=== PATIENT | female | born 1955 | race Caucasian/White ===

== ENCOUNTER → 2016-08-16 | Outpatient (CLI) | payer BC ==
[~2016-08-16] MED LIST: FLAX OIL PO; MULT-506 PO; OMEG10007 PO; VITA400C15 PO
--- NOTE | 2016-08-16 16:11 | MAMMOGRAPHY REPORT ---
UNILATERAL LEFT DIGITAL DIAGNOSTIC MAMMOGRAM TOMOSYNTHESIS AND TARGETED LEFT ULTRASOUND: 08/16/2016 CLINICAL HISTORY: 6 Month Follow-up Left. TECHNIQUE: Breast tomosynthesis in addition to standard 2D mammography was performed. Left CC and MLO 2-D and tomosynthesis images were obtained. COMPARISON: Comparison is made to exams dated: 02/13/2016 ultrasound, 02/13/2016 mammogram, 02/08/2016 mammogram, 02/01/2014 mammogram, 02/02/2015 mammogram, and 01/29/2013 mammogram - [facility]. BREAST COMPOSITION: The tissue of the left breast is heterogeneously dense, which may obscure small masses. FINDINGS: Again noted in the left 3:00 anterior breast is a partially circumscribed and partially o bscured round mass measuring at least 5 mm. The mass does not appear significantly changed compared to the February 2016 exam. The remainder of the left breast is stable compared to prior exams, without suspicious masses, calcifications, or areas of architectural distortion noted. Targeted ultrasound was performed of the area of the previously seen left breast mass. In the left breast at 3:00 subareolar region, there is a round anechoic circumscribed mass which measures 4 x 4 x 4 mm, stable in size compared to the February 2016 exam. The previously seen echogenic material withi n the mass is no longer evident, and likely represented proteinaceous debris. This corresponds with the mammographic mass and is consistent with a benign simple cyst. IMPRESSION: ACR BI-RADS CATEGORY 2: BENIGN, TARGETED ULTRASOUND ACR BI-RADS CATEGORY 2: BENIGN Stable benign 4 mm simple cyst in the left breast at 3:00. There is no mammographic or targeted son ographic evidence of malignancy. Return to annual mammogram screening schedule is recommended, due J leandro 2017. The patient has been verbally notified of the results. Approximately 10% of breast cancers are not detected with mammography. A negative mammographic repor t should not delay biopsy if a clinically suggestive mass is present. Lary De La Vega M.D. ah/:08/16/2016 14:09:47 Body Fitter: Antoinette MCCLURE(Kev)(Rachel), [facility] letter sent: Normal 1/2 BI-RADS Code: ACR BI-RADS Category 2: Benign Ultrasound BI-RADS: ACR BI-RADS Category 2: Benign
== END | disposition home or self-care (01) ==
LOC: C.MAMM 13:47
PROVIDERS: ATTEND Family Medicine
DX: N60.02 Solitary cyst of left breast (principal)

== ENCOUNTER → 2016-08-25 | Outpatient (CLI) | payer BC, OTHER ==
[2016-08-25 13:01] LABS: BASO ABS # 0.05 K/uL (0-0.2); COMPLETE YES; EOS % 1.9 %; HEMATOCRIT 43.7 % (37-47); LYMPH % 41.5 %; LYMPH ABS # 2.16 K/uL (1.2-3.4); MEAN CELL VOLUME 83.2 fL (80-100); MEAN CORPUSCULAR HEMOGLOBIN 28.8 pg (25-34); MEAN CORPUSCULAR HGB CONC 34.6 g/dl (32-36); MEAN PLATELET VOLUME 11.2 fL (7.4-10.4); MONO % 7.5 %; NEUT % 48.1 %; PLATELET COUNT 265 K/uL (130-400); RED BLOOD COUNT 5.25 M/uL (4.2-5.4)
[2016-08-25 13:23] LABS: ALT/SGPT 38 U/L (12-78); AST/SGOT 17 U/L (15-37); BLOOD UREA NITROGEN 20 mg/dl (7-18); BUN/CREATININE RATIO 19.8 (10-20); CALCIUM 9.1 mg/dl (8.5-10.1); CARBON DIOXIDE 32 mmol/L (21-32); CHLORIDE 103 mmol/L (98-107); CHOLESTEROL 197 mg/dl (0-200); GLUCOSE 91 mg/dl (70-99); POTASSIUM 3.8 mmol/L (3.5-5.1); SODIUM 141 mmol/L (136-145)
[2016-08-25 13:26] LABS: ALB/GLOB RATIO 1.1 (0.9-2); ALKALINE PHOSPHATASE 101 U/L (45-117); HDL CHOLESTEROL 100 mg/dl; LDL CHOLESTEROL CALCULATED 81 mg/dl; TRIGLYCERIDES 81 mg/dl (0-150); VERY LOW DENSITY LIPOPROT CALC 16 mg/dl
== END | disposition home or self-care (01) ==
LOC: C.LABPVFM 08:04
PROVIDERS: ATTEND Family Medicine
DX: E78.00 Pure hypercholesterolemia, unspecified (principal); I10 Essential (primary) hypertension; E80.6 Other disorders of bilirubin metabolism

== ENCOUNTER → 2017-02-11 | Outpatient (CLI) | payer BC ==
--- NOTE | 2017-02-12 13:54 | MAMMOGRAPHY REPORT ---
BILATERAL DIGITAL SCREENING MAMMOGRAM TOMOSYNTHESIS WITH CAD: 02/11/2017 CLINICAL HISTORY: Routine screening. Patient has no complaints. TECHNIQUE: Breast tomosynthesis in addition to standard 2D mammography was performed. Current study was also evaluated with a Computer Aided Detection (CAD) system. COMPARISON: Comparison is made to exams dated: 08/16/2016 mammogram, 02/13/2016 mammogram, 02/08/2016 ma mmogram, 02/02/2015 mammogram, 02/01/2014 mammogram, and 01/29/2013 mammogram - [facility] ter. BREAST COMPOSITION: The tissue of both breasts is heterogeneously dense, which may obscure small mas ses. FINDINGS: There are mild vascular calcifications in the breasts. No new suspicious mass, architectur al distortion or cluster of microcalcifications is seen. IMPRESSION: ACR BI-RADS CATEGORY 1: NEGATIVE There is no mammographic evidence of malignancy. A 1 year screening mammogram is recommended. The pa tient will receive written notification of the results. Approximately 10% of breast cancers are not detected with mammography. A negative mammographic report should not delay biopsy if a clinically suggestive mass is present. Sophie Douglas M.D. ay/:02/11/2017 16:09:57 Public Accountant: Rosi MCCLURE(R)(M), [facility] letter sent: Normal 1/2 BI-RADS Code: ACR BI-RADS Category 1: Negative
== END | disposition home or self-care (01) ==
LOC: C.MAMM 12:08
PROVIDERS: ATTEND Family Medicine
DX: Z12.31 Encounter for screening mammogram for malignant neoplasm of breast (principal)

== ENCOUNTER → 2017-03-04 | Outpatient (CLI) | payer BC ==
[2017-03-04 13:06] LABS: ALT/SGPT 31 U/L (12-78); AST/SGOT 25 U/L (15-37); BLOOD UREA NITROGEN 18 mg/dl (7-18); BUN/CREATININE RATIO 18.2 (10-20); CALCIUM 8.9 mg/dl (8.5-10.1); CARBON DIOXIDE 29 mmol/L (21-32); CHLORIDE 104 mmol/L (98-107); GLUCOSE 83 mg/dl (70-99); POTASSIUM 3.4 mmol/L (3.5-5.1); SODIUM 140 mmol/L (136-145)
[2017-03-04 13:08] LABS: ALB/GLOB RATIO 1.1 (0.9-2); ALKALINE PHOSPHATASE 99 U/L (45-117); CHOLESTEROL 172 mg/dl (0-200); CHOLESTEROL/HDL RATIO 2.1; HDL CHOLESTEROL 81 mg/dl; LDL CHOLESTEROL CALCULATED 79 mg/dl; TRIGLYCERIDES 62 mg/dl (0-150); VERY LOW DENSITY LIPOPROT CALC 12 mg/dl
== END | disposition home or self-care (01) ==
LOC: C.LABPVFM 07:06
PROVIDERS: ATTEND Family Medicine
DX: J45.909 Unspecified asthma, uncomplicated (principal); E78.00 Pure hypercholesterolemia, unspecified; I10 Essential (primary) hypertension; R09.82 Postnasal drip

== ENCOUNTER → 2017-08-30 | Outpatient (CLI) | payer BC ==
[2017-08-30 13:38] LABS: ALBUMIN 3.9 gm/dl (3.4-5.0); ALT/SGPT 33 U/L (12-78); BLOOD UREA NITROGEN 16 mg/dl (7-18); CALCIUM 9.6 mg/dl (8.5-10.1); CARBON DIOXIDE 31 mmol/L (21-32); CHOLESTEROL 207 mg/dl (0-200); CREATININE 1.11 mg/dl (0.60-1.20); GLUCOSE 82 mg/dl (70-99); POTASSIUM 3.8 mmol/L (3.5-5.1); SODIUM 137 mmol/L (136-145)
[2017-08-30 13:48] LABS: ALKALINE PHOSPHATASE 97 U/L (45-117); AST/SGOT 21 U/L (15-37); LDL CHOLESTEROL CALCULATED 97 mg/dl; TOTAL PROTEIN 7.7 gm/dl (6.4-8.2)
== END | disposition home or self-care (01) ==
LOC: C.LABPVFM 07:36
PROVIDERS: ATTEND Family Medicine
DX: Z00.00 Encounter for general adult medical examination without abnormal findings (principal); Z13.29 Encounter for screening for other suspected endocrine disorder; E78.00 Pure hypercholesterolemia, unspecified; E80.6 Other disorders of bilirubin metabolism; I10 Essential (primary) hypertension; J45.909 Unspecified asthma, uncomplicated

== ENCOUNTER → 2018-03-07 | Outpatient (CLI) | payer BC ==
[2018-03-07 13:21] LABS: ALBUMIN 3.9 gm/dl (3.4-5.0); ALKALINE PHOSPHATASE 99 U/L (45-117); ALT/SGPT 38 U/L (12-78); AST/SGOT 25 U/L (15-37); BLOOD UREA NITROGEN 22 mg/dl (7-18); CALCIUM 9.4 mg/dl (8.5-10.1); CARBON DIOXIDE 35 mmol/L (21-32); CHOLESTEROL 203 mg/dl (0-200); CREATININE 1.05 mg/dl (0.60-1.20); GLUCOSE 90 mg/dl (70-99); LDL CHOLESTEROL CALCULATED 97 mg/dl; POTASSIUM 3.5 mmol/L (3.5-5.1); SODIUM 138 mmol/L (136-145); TOTAL PROTEIN 7.6 gm/dl (6.4-8.2)
== END | disposition home or self-care (01) ==
LOC: C.LABPVFM 07:53
PROVIDERS: ATTEND Family Medicine
DX: E78.00 Pure hypercholesterolemia, unspecified (principal); I10 Essential (primary) hypertension; E80.6 Other disorders of bilirubin metabolism

== ENCOUNTER 2024-03-23 10:32 | Inpatient (IN) ==
--- NOTE | 2024-03-23 11:04 | Emergency Department Note ---
History of Present Illness General Chief complaint: Back Injury/Pain Stated complaint: BACK SPASMS, NOT SLEEPING Time Seen by Provider: 03/23/24 10:45 History of Present Illness Maximum Pain Intensity: 10 This is a 68-year-old female that presents to the emergency department via private vehicle with complaints of "back pain". The patient notes that this past Saturday/Saturday 1 week ago she was lifting a railroad tie. She noted that when she was doing that she felt some pain in her mid upper back area. It has progressed since that time. She did follow-up with her PCP this past and was prescribed muscle relaxers and prednisone. She noted about 1 day relief however the pain has now continued. The only alleviating factor is a hot shower and she took 4 of them last night. She is not sleeping well secondary to the pain. Pain currently 10/10. Pain worsens with movement, bending and deep breath. No anterior chest pain. No abdominal pain. Patient denies any pertinent past back surgeries. No medicinal allergies. Pain does not radiate down the arms or legs. No lower extremity weakness and no bowel or bladder incontinence. Home Medications Medication Instructions Recorded Confirmed Type multivitamin 1 tab PO QAM 10/08/18 03/23/24 History atorvastatin 40 mg tablet 40 mg PO DAILY #90 tabs 05/07/23 03/23/24 Rx losartan 50 mg tablet 50 mg PO DAILY #90 tabs 05/07/23 03/23/24 Rx albuterol sulfate 90 mcg/actuation See Rx Instructions .Route 11/22/23 03/23/24 Rx aerosol inhaler (Ventolin HFA) .COMPLEX #18 grams benzonatate 200 mg capsule 200 mg PO TID PRN cough #20 caps 03/09/24 03/23/24 Rx prednisone 20 mg tablet 40 mg (2 x 20 mg) PO DAILY #14 tabs 03/19/24 03/23/24 Rx cyclobenzaprine 5 mg tablet 5 - 10 mg PO TID PRN muscle spasm 03/23/24 03/23/24 History Allergies Allergy/AdvReac Type Severity Reaction Status Date / Time No Known Drug Allergies Allergy Verified 03/19/24 14:03 [place] extract Allergy Verified 03/19/24 14:03 Past Med/Surg History Problem List (Updated 03/23/24 @ 21:33 by Norm Castle PA-C) Elevated troponin (Acute) Back pain (Acute) Sprain of thoracic spine COVID-19 Viral URI with cough Pain in female genitalia on intercourse Localized osteoarthritis of left knee Tick bite Arthralgia Frequent headaches Fatigue Family history of hypertrophic cardiomyopathy Hypokalemia (Acute) Hypertension (Chronic) Hypercholesterolemia (Chronic) Exercise-induced asthma (Chronic) GERD (gastroesophageal reflux disease) (Chronic) Medical History (Updated 03/23/24 @ 21:33 by Norm Castle PA-C) Cervical radiculopathy Fluid retention Surgical History History of total abdominal hysterectomy and bilateral salpingo-oophorectomy History of bilateral tubal ligation History of dilatation and curettage History of craniotomy depressed skull fx--repair at 2yrs old History of elbow surgery right History of hand surgery left thumb removed part of bone History of colonoscopy History of wisdom tooth extraction Family History Mother Family history of diabetes mellitus Grandmother (Maternal) Family history of diabetes mellitus Myocardial infarction Other No family history of adverse response to anesthesia Denies family history of Ovarian cancer Prostate cancer Breast cancer Colorectal cancer Social History Smoking Status: Never smoker Second Hand Exposure: No; Do You Dip or Chew Tobacco: No; Tobacco Cessation Education Requested by Patient: No Hx Alcohol Use: No Hx Substance Use: No Preferred Language: Uzbek Communication Ability: Effective Produce Shipper Required: No Beliefs That Will Affect Care: None marital status: / Current Living Situation: Alone current occupational status: retired How many Children do You have: 3 Other Information That Helps Us Care for You: Yes Feels Safe at Home: Yes Safety Concerns: Feels Safe At This Time Childhood Exposure to Second-Hand Smoke: No Diet: regular caffeine: Yes (tea) Dental Care, Regularly: Yes Physical Activity Frequency: Daily Seatbelt Use: always Sunscreen Use: Yes Assistive Devices: Contacts and Glasses Review of Systems A total of 10 systems reviewed and were otherwise negative Physical Exam Vital Signs Vital Signs - 24 hr 03/23/24 10:37 03/23/24 11:25 08/19/24 15:55 Temperature 36.3 C L Temperature Source Temporal Artery Scan Pulse Rate 96 H 86 Pulse Rate [Left Finger] 90 Pulse Rhythm Regular Pulse Strength Normal Respiratory Rate 18 18 20 Respiratory Effort / Characteristics Non-Labored Spontaneous Respiratory Depth Normal Respiratory Pattern Regular Blood Pressure 161/89 H Blood Pressure [Right Arm] 145/86 H Blood Pressure Mean 113 Blood Pressure Mean [Right Arm] 105 Blood Pressure Position Sitting Blood Pressure Position [Right Arm] Sitting Pulse Oximetry 97 94 98 Oxygen Delivery Method Room Air Room Air Sepsis Recent Fever Within 48 Hours No Sepsis New/Unexplained Change in Mental Status No Sepsis Action Taken by Nursing No Action Required VITAL SIGNS - Vital signs and nursing notes were reviewed. GENERAL - 68-year-old female appearing her stated age who is in no acute distress. Communicates well with provider and answers questions appropriately. SKIN - Without rashes. HEAD - NC/AT. EYES - Sclera anicteric. Skin overlying the back is unremarkable. EARS - No deformities of external structures noted on gross examination bilaterally. MOUTH/OROPHARYNX - Without perioral cyanosis. NECK - Neck with FROM. No nuchal rigidity. LUNGS - Chest wall symmetric without accessory muscle use, intercostals retractions, or central cyanosis. Normal vesicular breath sounds CTA B/L. No wheezes, rales, or rhonchi appreciated. CARDIAC - RRR with S1/S2. No murmur, rubs, or gallops appreciated. MUSCULOSKELETALthere is tenderness overlying the superior to mid T-spine area. No C-spine or L-spine tenderness. ABDOMEN - Abdominal contour normal without pulsations or visible masses. BS normoactive all four quadrants. No tenderness, palpable masses, hepatosplenomegaly, or ascites noted. EXTREMITIES - No clubbing or peripheral cyanosis. +5/5 strength noted in UE/LE bilaterally. NEUROLOGIC - Cranial nerves II through XII grossly intact. PSYCH -alert, oriented and pleasant on exam Course Administered Medications Enoxaparin Sodium (Enoxaparin Inj 40 Mg/0.4 Ml Syr) 40 mg SQ Q24H [facility] Stop: 04/22/24 18:29 Last Admin: 03/23/24 19:44 Dose: 40 mg Documented By: CHRISTIANO Miscellaneous (Remove Lidoderm Patch) 1 each N/A DAILY@2100 [facility] Stop: 04/22/24 20:59 Last Admin: 03/23/24 21:06 Dose: 1 each Documented By: CHRISTIANO Discontinued Medications Diazepam (Diazepam 2 Mg Tablet) 2 mg PO NOW ONE Stop: 03/23/24 17:40 Last Admin: 03/23/24 18:36 Dose: 2 mg Documented By: SARA Ioversol (Optiray 320 100ml) 93 ml IV ONCE ONE Stop: 03/23/24 12:18 Last Admin: 03/23/24 12:18 Dose: 93 ml Documented By: SANTA Ketorolac Tromethamine (Ketorolac Tromethamine 15 Mg/Ml Vial) 10 mg IV NOW ONE Stop: 03/23/24 17:18 Last Admin: 03/23/24 17:37 Dose: 10 mg Documented By: ULISES Lidocaine (Lidocaine 5% 1 Patch) 1 patch TD NOW STA Stop: 03/23/24 17:02 Last Admin: 03/23/24 17:20 Dose: 1 patch Documented By: ULISES Morphine Sulfate (Morphine Sulfate 2 Mg/Ml Carp) 2 mg IV NOW STA Stop: 03/23/24 11:01 Last Admin: 03/23/24 11:20 Dose: 2 mg Documented By: ZACH Morphine Sulfate (Morphine Sulfate 2 Mg/Ml Carp) 2 mg IV NOW STA Stop: 03/23/24 17:02 Last Admin: 03/23/24 17:36 Dose: 2 mg Documented By: ULISES Ondansetron HCl (Ondansetron Inj 2 Mg/Ml 2 Ml Vial) 4 mg IV NOW STA Stop: 03/23/24 11:01 Last Admin: 03/23/24 11:20 Dose: 4 mg Documented By: ZACH Medical Decision Making Laboratory Data 03/23/24 11:20 03/23/24 11:20 Lab Results 03/23/24 03/23/24 Range/Units 11:20 15:49 WBC 10.92 H (4.8-10.8) K/ul RBC 4.51 (4.20-5.40) M/uL Hgb 12.0 (12.0-16.0) g/dl Hct 36.0 L (37.0-47.0) % MCV 79.8 L (80.0-100.0) fL MCH 26.6 (25.0-34.0) pg MCHC 33.3 (32.0-36.0) g/dL RDW Std Deviation 42.3 (36.4-46.3) fL RDW Coeff of Chadwick 14.4 (11.5-14.5) % Plt Count 406 H (130-400) K/uL MPV 9.8 (9.4-12.4) fL Immature Gran % (Auto) 0.5 % Neut % (Auto) 93.6 % Lymph % (Auto) 4.2 % Mccracken % (Auto) 1.5 % Eos % (Auto) 0.0 % Baso % (Auto) 0.2 % Neut # (Auto) 10.23 H (1.40-6.50) K/uL Lymph # (Auto) 0.46 L (1.20-3.40) K/uL Mccracken # (Auto) 0.16 (0.11-0.59) K/uL Eos # (Auto) 0.00 (0.00-0.50) K/uL Baso # (Auto) 0.02 (0.00-0.20) K/uL Immature Gran # (Auto) 0.05 (0.01-0.20) K/uL Sodium 137 (136-145) mmol/L Potassium 4.2 (3.5-5.1) mmol/L Chloride 103 (98-107) mmol/L Carbon Dioxide 27 (21-32) mmol/L Anion Gap 7 (3-11) BUN 22 (6-23) mg/dl Creatinine 0.77 (0.6-1.2) mg/dl Est Cr Clr Drug Dosing 61.7 ml/min Est GFR ( Amer) 91.3 ml/min Est GFR (Non-Af Amer) 78.8 ml/min BUN/Creatinine Ratio 28.6 H (10-20) Glucose 145 H (70-99(Fasting)) mg/dl Calcium 9.8 (8.6-10.3) mg/dl Total Bilirubin 0.8 (0.2-1.0) mg/dl AST 14 (13-39) U/L ALT 29 (7-52) U/L Alkaline Phosphatase 141 H (34-104) U/L Troponin I High Sens 30.9 H 19.0 H D (0-14) pg/ml Total Protein 6.7 (6.0-8.3) gm/dl Albumin 3.8 (3.4-5.0) gm/dl Globulin 2.9 (2.5-4.0) gm/dl Albumin/Globulin Ratio 1.3 (0.9-2) Imaging Data Radiologist's Impression: Chest CT 03/23/24 10:59 CT chest diagnostic w con CLINICAL HISTORY: Mid/upper central back pain s/p heavy lifting TECHNIQUE: Multidetector row helical CT of the chest was performed with intravenous contrast. Coronal and sagittal reformations were obtained. Automated dose lowering techniques and/or adjustment according to patient size were utilized for this exam. CT DOSE: 392.06 mGy.cm Comparison: None available at the time of this dictation. FINDINGS: Lungs and pleura: Normal. Heart and pericardium: Heart size is normal. No pericardial effusion. Vessels: Mild atherosclerotic changes in the aorta and coronary arteries. Mediastinum and rhonda: Subcentimeter lymph nodes are seen. Chest wall and lower neck: Small thyroid nodules are noted which do not require follow-up by ACR criteria. Abdomen: Unremarkable. Bones: Degenerative changes in the thoracic spine. IMPRESSION: No acute abnormalities in particular no evidence of acute fracture. ACT 112: Negative or not required by law. Electronically signed by: Zachariah English M.D. 03/23/2024 1:[address] 03/23/24 10:59 CT thoracic spine w con CT DOSE: CLINICAL HISTORY: Mid/upper central back pain s/p heavy lifting TECHNIQUE: Multiaxial CT images of the thoracic spine were performed following the intravenous administration of contrast and reformatted in the sagittal and coronal planes A dose lowering technique was utilized adhering to the principles of ALARA. COMPARISON STUDY: None. FINDINGS: No fracture or subluxation within the thoracic spine. Moderate disc space narrowing at T1-T2. Mild disc space narrowing within the remaining upper to mid thoracic spine. Moderate to severe disc space narrowing at L1-L2. No significant central canal narrowing by CT technique. Paravertebral soft tissues are unremarkable. IMPRESSION: No fracture or subluxation within the thoracic spine. ACT 112: Negative or not required by law. Electronically signed by: Anand Figueroa M.D. 03/23/2024 12:40 PM [facility] Narrative Patient was seen and evaluated as above in room D04b. Review was performed of triage nursing notes and vital signs. I did review pertinent previous outpatient visit from 03/19/2024 and patient history. After obtaining a thorough history and physical examination the above work up was performed. Patient presents to us today for evaluation of mid back pain. It is reproducible on examination. It is worse with movement but also present at rest. No chest pain or shortness of breath. No neurologic deficits. Options of care were discussed with the patient. IV access was established. Labs were drawn. Minor leukocytosis 10.92. No anemia. No emergent metabolic disturbance. Hyperglycemia 145. CT scan was obtained of the chest as well as thoracic spine. Results as above. No fracture. No acute abnormalities in the chest. Patient was medicated here with IV morphine for pain, Zofran for any nausea. Although this initially helped her pain the pain did return. To be thorough a troponin and EKG were added. Troponin returned elevated at 30.9. I discussed this with the hospitalist service and also the well logger, Dr. Green at 3:47 PM. We reviewed the patient's EKG which revealed normal sinus rhythm at a rate of 72 bpm. QTc 396. QRS 68. No ST elevation. We agreed to proceed with troponin repeat and if stable/decreasing could be discharged home for outpatient follow-up and if increasing depending on value then inpatient management would be warranted. Repeat troponin returned decreasing now at 19. I reviewed this with the patient and initially planned on discharge however the patient noted pain was returning and she was concerned about going home noting severity of pain in her back. I discussed potential oral outpatient analgesic options with the patient versus inpatient management. At this time through shared decision making with the patient we will proceed with inpatient management to better control her back pain and further evaluate/manage. Case discussed with the hospitalist service. Please refer to further documentation regarding her stay. GCS: 15 In the evaluation and treatment of this patient the following differential diagnoses were entertained: Discitis, osteomyelitis, strain, sprain, compression fracture, disc herniation, epidural hematoma, dissection, NE, PE, among others Impression & Plan Back pain, Elevated troponin Discharge Plan Visit Data Chief Complaint: Back Injury/Pain Stated Complaint: BACK SPASMS, NOT SLEEPING ED Provider: Romero Luke ED Midlevel Provider: Norm Castle Discharge Problem: Back pain, Elevated troponin Patient Disposition: Admitted As Inpatient Condition: Good Discharge Instructions Interventions: ED Discharge Assessment Last Done: 03/23/24 18:31
[2024-03-23] MEDS: MoRPHine SULFATE 2 MG/ML CARP IV STA ×2 (11:20→17:36)
[2024-03-23] MEDS: ONDANSETRON INJ 2 MG/ML 2 ML VIAL IV STA (11:20)
[2024-03-23 11:52] LABS: Mean Corpuscular Hemoglobin 26.6 pg (25.0-34.0); Mean Corpuscular Hgb Conc 33.3 g/dL (32.0-36.0); Mean Corpuscular Volume 79.8 fL (80.0-100.0); Mean Platelet Volume 9.8 fL (9.4-12.4); Platelet Count 406 K/uL (130-400); RDW Coefficient of Variation 14.4 % (11.5-14.5); RDW Standard Deviation 42.3 fL (36.4-46.3); Red Blood Count 4.51 M/uL (4.20-5.40); White Blood Count 10.92 K/ul (4.8-10.8)
[2024-03-23 12:08] LABS: Albumin Globulin Ratio 1.3 (0.9-2); Albumin Level 3.8 gm/dl (3.4-5.0); BUN Creatinine Ratio 28.6 (10-20); Bilirubin,Total 0.8 mg/dl (0.2-1.0); Calcium 9.8 mg/dl (8.6-10.3); Creatinine Clr Calc Pharmacy 61.7 ml/min; Est GFR (African American) 91.3 ml/min; Est GFR (Non-African American) 78.8 ml/min; Globulin 2.9 gm/dl (2.5-4.0); Potassium 4.2 mmol/L (3.5-5.1); Total Protein 6.7 gm/dl (6.0-8.3)
[2024-03-23 12:15] LABS: Basophils # (auto) 0.02 K/uL (0.00-0.20); Basophils % (auto) 0.2 %; Immature Granulocytes # (auto) 0.05 K/uL (0.01-0.20); Immature Granulocytes % (auto) 0.5 %; Lymphocytes # (auto) 0.46 K/uL (1.20-3.40); Lymphocytes % (auto) 4.2 %; Monocytes # (auto) 0.16 K/uL (0.11-0.59); Monocytes % (auto) 1.5 %; Neutrophils # (auto) 10.23 K/uL (1.40-6.50); Neutrophils % (auto) 93.6 %
[2024-03-23] MEDS: OPTIRAY 320 100ml IV ONE (12:18)
--- NOTE | 2024-03-23 12:43 | CT Scan Report ---
CT thoracic spine w con CT DOSE: CLINICAL HISTORY: Mid/upper central back pain s/p heavy lifting TECHNIQUE: Multiaxial CT images of the thoracic spine were performed following the intravenous admini stration of contrast and reformatted in the sagittal and coronal planes A dose lowering technique wa s utilized adhering to the principles of ALARA. COMPARISON STUDY: None. FINDINGS: No fracture or subluxation within the thoracic spine. Moderate disc space narrowing at T1-T 2. Mild disc space narrowing within the remaining upper to mid thoracic spine. Moderate to severe dis c space narrowing at L1-L2. No significant central canal narrowing by CT technique. Paravertebral sof t tissues are unremarkable. IMPRESSION: No fracture or subluxation within the thoracic spine. ACT 112: Negative or not required by law. Electronically signed by: Anand Figueroa M.D. 03/23/2024 12:40 PM
--- NOTE | 2024-03-23 13:05 | CT Scan Report ---
CT chest diagnostic w con CLINICAL HISTORY: Mid/upper central back pain s/p heavy lifting TECHNIQUE: Multidetector row helical CT of the chest was performed with intravenous contrast. Coronal and sagittal reformations were obtained. Automated dose lowering techniques and/or adjustment accord ing to patient size were utilized for this exam. CT DOSE: 392.06 mGy.cm Comparison: None available at the time of this dictation. FINDINGS: Lungs and pleura: Normal. Heart and pericardium: Heart size is normal. No pericardial effusion. Vessels: Mild atherosclerotic changes in the aorta and coronary arteries. Mediastinum and rhonda: Subcentimeter lymph nodes are seen. Chest wall and lower neck: Small thyroid nodules are noted which do not require follow-up by ACR cedric broussard. Abdomen: Unremarkable. Bones: Degenerative changes in the thoracic spine. IMPRESSION: No acute abnormalities in particular no evidence of acute fracture. ACT 112: Negative or not required by law. Electronically signed by: Zachariah English M.D. 03/23/2024 1:03 PM
[2024-03-23 14:17] LABS: Troponin I High Sensitivity 30.9 pg/ml (0-14)
--- NOTE | 2024-03-23 15:33 | Electrocardiogram Report ---
Test Reason : Blood Pressure : */* mmHG Vent. Rate : 72 BPM Atrial Rate : 72 BPM P-R Int : 152 ms QRS Dur : 68 ms QT Int : 362 ms P-R-T Axes : -10 -10 -14 degrees QTcB Int : 396 ms Normal sinus rhythm Normal ECG When compared with ECG of 31-Aug-2008 16:02, No significant change Confirmed by Gregory Green ([id number]) on 03/23/2024 3:33:36 PM Referred By: REFERRED SELF Confirmed By: Gregory Green
--- NOTE | 2024-03-23 17:18 | History & Physical Report ---
Date of Service March 23, 2024 Assessment & Plan (1) Back pain: Plan: Severe back pain Began after lifting a railroad tie. Worsened with movement and palpation No extremity numbness/tingling or focal weakness CTC-spine: No fracture or subluxation. T1-T2 moderate to space narrowing, L1-L2 moderate to severe narrowing. No lower extremity symptoms Will admit for multimodal pain control. Scaled hydromorphone, lidocaine patch, Tylenol, Toradol all ordered PT/OT No red flag symptoms. If worsening, or +neurologic sx --> follow-up with MRI. Currently pain is without red flag symptoms and has been present for less than 1 month. (2) Elevated troponin: Plan: Elevated troponin ? Demand and with hypertension in the setting of pain EKG without acute ischemic findings. Troponin minimally elevated and downtrending Echo ordered Admit to medical telemetry Statin continued Does have a family history of hypertrophic cardiomyopathy CTchest without evidence of aortic abnormality She has not had any anterior chest pain, pain is all midline spine in her low back Plan Chronic stable issues: Hypertension: Continue losartan Hyperlipidemia: Continue atorvastatin Asthma: Continue albuterol as needed. DVT prophylaxis: Lovenox Disposition: Medical telemetry CODE STATUS: Full code Diet: Regular History of Present Illness Primary Care Provider: GUILLERMO Marxen is a 68-year-old female with a past medical history of of hypertension, exercise-induced asthma, GERD who presents to the ER by private vehicle with back discomfort. She reports her back pain began 1 week ago after she was lifting a railroad tie. Since that time has had mid upper back severe pain and tension. She has trialed muscle relaxers and prednisone with a little relief for around a day, but then pain has subsequently progressed. Hot showers help but again pain has currently escalated 2 out of 10/10. Pain is better with rest and when not moving, movement reproduces 10/10 pain in her back. No prior history of back injuries. She is initially recommended for evaluation for potential cardiac disease with a elevated troponin of 30.9; no EKG changes. Repeat troponin was downtrending at 19. She does have a family history of hypertrophic cardiomyopathy. Case was reviewed with cardiology, low risk for ischemic/cardiac pain and heart issues with normal appearance on CT. Patient was not felt to have high risk ischemic disease and okay for discharge, her pain was likely musculoskeletal. Patient was being prepared for discharge however due to her severe spasms does not feel that she is able to adequately ambulate at home, and does not feel that she is able to be discharged and was subsequently referred for pain control. CTchest with contrast did not show any evidence of dissection or aortic abnormality. CTC-spine was obtained due to severity of patient's pain. This did not show evidence of fracture or subluxation. Moderate T1-T2 disc space narrowing. Moderate to severe to space narrowing at L1-L2. No central canal stenosis noted. Brittney reprots she did not feel a pop/snap or anything like that after lifting the railroad tie, but had progressively worsening pain. Pred/cyclobenzaprine only helped for a day, then had progressive pain again. Last two nights have been intolerable to her. "I haven't slept at all, as soon as I get into one position I have to switch or get into the chair." Takes alieve q12h 220mg, last dose 5am this morning. Hot shower helps No numbness/tingling. No weakness in the arms or legs, but the pain causes spasms and doesnt want to move her arms to risk aggravating her back No fever, chills, or sweats Peeing normally 6/10 currently after ER medicaitons. Medical History: Reviewed Medications: Reviewed Surgical History: Reviewed Family history: Reviewed Allergies: Reviewed Social History: Reviewed. No tobacco product use. Social etoh use. Code Status: Full Allergies Allergy/AdvReac Type Severity Reaction Status Date / Time No Known Drug Allergies Allergy Verified 03/19/24 14:03 [place] extract Allergy Verified 03/19/24 14:03 Home Medications Medication Instructions Recorded Confirmed Type multivitamin 1 tab PO QAM 10/08/18 03/23/24 History atorvastatin 40 mg tablet 40 mg PO DAILY #90 tabs 05/07/23 03/23/24 Rx losartan 50 mg tablet 50 mg PO DAILY #90 tabs 05/07/23 03/23/24 Rx albuterol sulfate 90 mcg/actuation See Rx Instructions .Route 11/22/23 03/23/24 Rx aerosol inhaler (Ventolin HFA) .COMPLEX #18 grams benzonatate 200 mg capsule 200 mg PO TID PRN cough #20 caps 03/09/24 03/23/24 Rx prednisone 20 mg tablet 40 mg (2 x 20 mg) PO DAILY #14 tabs 03/19/24 03/23/24 Rx cyclobenzaprine 5 mg tablet 5 - 10 mg PO TID PRN muscle spasm 03/23/24 03/23/24 History Past Med/Surg History Problem List (Updated 03/23/24 @ 17:21 by Lito Lundberg MD) Elevated troponin Back pain Sprain of thoracic spine COVID-19 Viral URI with cough Pain in female genitalia on intercourse Localized osteoarthritis of left knee Tick bite Arthralgia Frequent headaches Fatigue Family history of hypertrophic cardiomyopathy Hypokalemia (Acute) Hypertension (Chronic) Hypercholesterolemia (Chronic) Exercise-induced asthma (Chronic) GERD (gastroesophageal reflux disease) (Chronic) Medical History (Updated 03/23/24 @ 17:21 by Lito Lundberg MD) Cervical radiculopathy Fluid retention Surgical History History of total abdominal hysterectomy and bilateral salpingo-oophorectomy History of bilateral tubal ligation History of dilatation and curettage History of craniotomy depressed skull fx--repair at 2yrs old History of elbow surgery right History of hand surgery left thumb removed part of bone History of colonoscopy History of wisdom tooth extraction Family History Mother Family history of diabetes mellitus Grandmother (Maternal) Family history of diabetes mellitus Myocardial infarction Other No family history of adverse response to anesthesia Denies family history of Ovarian cancer Prostate cancer Breast cancer Colorectal cancer Social History Smoking Status: Never smoker Second Hand Exposure: No ( smoked); Do You Dip or Chew Tobacco: No; Hx Alcohol Use: Yes Alcohol type: beer, wine and hard liquor Hx Substance Use: No Preferred Language: Peruvian Communication Ability: Effective Dairy Worker Required: No Beliefs That Will Affect Care: None marital status: / Current Living Situation: Alone and Family current occupational status: retired How many Children do You have: 3 Feels Safe at Home: Yes Childhood Exposure to Second-Hand Smoke: No Diet: regular caffeine: Yes (tea) Dental Care, Regularly: Yes Physical Activity Frequency: Daily Seatbelt Use: always Sunscreen Use: Yes Assistive Devices: Contacts and Glasses Physical Exam Physical Exam: General: A&Ox3. NAD. Cooperative. HEENT: Atraumatic, normocephalic. Vision/hearing intact Pulm: CTAB A&P. -wheezes, -rales, -rhonchi. Symmetrical chest rise. No increased work of breathing. No respiratory distress. Cardiac: RRR, -mrg. Radial pulses intact and symmetrical. Abdominal: Nontender, nondistended, soft. BS present. Spine: Tenderness to spinal palpation around T4-T8 midline. No radicular symptoms on paraspinal palpation. Slightly increased right paraspinal muscular tone. Extremities: Moving all extremities equally. Fresh Work Inspector strength, hip flexion, ankle dorsiflexion/plantarflexion are 5/5 and symmetrical. No sensory deficits Results & Data Results & Data Vital Signs (Past 12 Hours) Vital Signs Temp Pulse Pulse Resp BP BP Pulse Ox 03/23/24 15:55 90 20 145/86 H 98 03/23/24 11:25 86 18 94 03/23/24 10:37 36.3 C L 96 H 18 161/89 H 97 O2 Del Method 03/23/24 15:55 03/23/24 11:25 Room Air 03/23/24 10:37 Room Air PG Care Time/CCT Total # of Minutes Spent Total Time Spent with Patient: Total time spent is greater than 50% in coordination of care (as documented) at patient's floor/unit and/or counseling patient: Coding Level of Care Code 10978 INT INP/OBS CARE 2/55MIN Diagnoses Back pain M54.9 Elevated troponin R79.89
[2024-03-23] MEDS: LIDOCAINE 5% 1 PATCH TD STA (17:20)
[2024-03-23] MEDS: KETOROLAC TROMETHAMINE 15 MG/ML VIAL IV ONE (17:37)
[2024-03-23] MEDS ORDERED: ALBUTEROL HFA 8 GM INHALER INH PRN (18:06)
[2024-03-23] MEDS: diazePAM 2 MG TABLET PO ONE (18:36)
[2024-03-23] MEDS: ENOXAPARIN INJ 40 MG/0.4 ML SYR SQ SCH (19:44)
[2024-03-23] MEDS: KETOROLAC TROMETHAMINE 15 MG/ML VIAL IV PRN (23:25)
[2024-03-23] MEDS: HYDROmorphone INJ 0.5 MG/0.5 ML SYR IV PRN (23:25)
[2024-03-24] MEDS: ACETAMINOPHEN 325 MG TAB PO PRN (03:25)
[2024-03-24] MEDS: CYCLOBENZAPRINE HCL 5 MG TAB PO PRN (03:26)
[2024-03-24] MEDS: HYDROmorphone INJ 1 MG/ML SYRINGE IV PRN (04:15)
--- NOTE | 2024-03-24 07:19 | Emergency Department Note ---
ED Visit Note I was consulted by the Advanced Practice Provider. I personally made/approved the management plan and take responsibility for the patient management. I performed a substantive portion of the visit. This includes the aspects of: This patient has back pain after lifting a railroad tie there is no direct trauma. While she was in the ER she did receive pain medication and was looking much better . I reviewed her EKG does not show any ischemic changes however troponin was elevated at 30. On my exam she appears comfortable she had no chest pain but given her age and her elevated troponin I do think she needs to be admitted/observed for further cardiac workup. EKGnormal sinus rhythm without acute ischemic changes or ectopy .
[2024-03-24] MEDS: MULTIVITAMIN TAB PO SCH (07:26)
[2024-03-24] MEDS: ATORVASTATIN 40 MG TAB PO SCH (07:26)
[2024-03-24] MEDS: LOSARTAN POTASSIUM 50 MG TAB PO SCH (07:26)
[2024-03-24] MEDS: predniSONE 20 MG TAB PO SCH (07:27)
--- NOTE | 2024-03-24 07:52 | Hospitalist Progress Note ---
Date of Service March 24, 2024 Assessment & Plan (1) Back pain: Plan: Patient admitted for pain control for back pain following helping family this past Saturday/Saturday (March 15) railroad tie and felt pain in mid upper back area and saw PCP this past and prescribed rx for Flexeril and prednisone x7 day course * Of note, patient did also test POSITIVE for COVID-19 on 03/17 with symptoms of sudden onset fatigue, ,headache, nonproductive course and hoarse voice. No SOB or post-nasal drip and was rx 7 day prednisone and tessalon pearls at that time Reports pain worsened with movement and + tenderness to palpation, however no extremity numbness/tingling or focal weakness on admission CT cervical spine w/ no fracture or subluxation, does note T1-T2 moderate to space narrowing, L1-L2 moderate to severe narrowing. No lower extremity symptoms or red flag symptoms Admitted for pain control, therapy evaluations. If worsening or + neuro sx, f/u MRI recommended but w/o red flag sx and sx present for < 1month 03/24 Pain control: tylenol, Dilaudid IV. Flexeril 5mg TID prn. ?Flexeril switch to baclofen if needed given prior ineffectiveness outpatient --> SWITCHING, made baclofen 10mg TID SCHEDULED Toradol IV available prn - RN to administer dose NOW Added oxycodone prn for PO opiate option. Added Lidocaine patch added given prior relief. Heating pad if needed/wanted Lovenox SQ for DVT proph Given hx GERD, added once daily pepcid for GI proph (also on prednisone taper) Patient reports needing better control/wanting to monitor overnight and will plan to monitor pain control overnight and plan for dc 03/25 if improved pending therapy evaluations. Check Lyme for completeness given ALP elevation. Vit D checked and wnl PT/OT consults pending (2) Elevated troponin: Plan: Elevated troponin 30.9 on high sensitivity testing on admission. Suspect demand ischemia in the setting of pain. No CP reported. ?post viral. Did have recent + COVID testing less than [address] chest WITHOUT evidence for aortic abnormality EKG w/o acute ischemic findings, and repeat troponin trended DOWN --> 19.0 Telemetry with NSR 80s, occasional PAC She has not had any anterior chest pain, pain is all midline spine in her low back ECHO obtained for completeness given family hx hypertrophic cardiomyopathy --> ECHO w/ normal LV size and function, EF 60-65%. RV is normal in size/function. Mild MR. RVSP is normal TRACE noncircumferential pericardial effusion (maximum depth few millimeters). NOT hemodynamically significant Check lyme for completeness As above, awaiting PT/OT consults and pain control as main reason for admission HTN - Chronic, stable. BP 117/68. - Continues on losartan. HLD - Continues atorvastatin. ?check CK for completeness if needing Asthma: recent rx for prednisone for +COVID as above.No pleuritic chest pain/hypoxia or hypotension reported. --Continue prednisone 40mg daily as already taking as outpatient, consider decreasing to 20mg for AM but has been ordered her 3 days worth to complete prior taper - Albuterol inhaler available prn --On room air, 97% Plan DVT proph: Lovenox SQ while inpatient continued inpatient stay working on pain control as outlined If improved, possible dc home 03/25 pending therapy evals. CM to follow if needed pending therapy evals. Admission and Anticipated Discharge Date Admission Date: March 23, 2024 Supervising Physician Co-Signing Physician Notes The patient was not seen by me. The chart was reviewed. Case discussed with JEYSON Myers. Agree with assessment and plan Subjective Evaluated this morning around 11:45, sitting up in bed. Appears comfortable at present but not well enough to go home. Just given dilaudid. Discussed RN to give lidocaine patch, dose of toradol. Patient reports she was just asking about patch. Discussed switching flexeril to baclofen as flexeril not helpful prior or at present and will monitor. No CP/SOB reported. Did have COVID at the beginning of the month, discussed could have some component weighing in. No SOB reported with leaning forward. Discussed ECHO, no tick bites/rashes. Passing some gas, but no BM. Reports she thinks she might need a stool softener. Will add. No loss of bowel/bladder function. LE strength testing wnl. Does have paraspinal muscle tenderness to thoracic spine, no bony step offs. Monitoring pain control/therapy evaluations for possible dc in am if pain improved/controlled and therapy evals ok to return home. Questions/concerns addressed at this time. Physical Exam Physical Exam: General: 68 yo female, sitting up in bed upon arrival, NAD, able to sit up in bed without much difficulty, just medicated for pain, NAD HEENT: head atraumatic, normocephalic, mmm, trachea midline Resp: even/unlabored, no w/c/r, on room air CV: RRR, no significant mrg, no pitting edema/calf tenderness GI +BS, soft, slight distension but nontender : no barker MSK/Neuro:+tenderness to spinal palpation around T4-T8 midline. No radicular symptoms on paraspinal palpation. Slightly increased right paraspinal muscular tone. dorsiflexion/plantar flexion intact, sensation intact Extremities: Moving all extremities equally. Educational Paraprofessional strength, hip flexion, ankle dorsiflexion/plantarflexion are 5/5 and symmetrical. No sensory deficits Psych: AOx3, cooperative with exam Results & Data Results & Data Vital Signs (Past 12 Hours) Vital Signs Temp Pulse Pulse Resp BP Pulse Ox O2 Del Method 03/24/24 07:47 75 03/24/24 07:43 36.6 C 82 18 109/60 98 Room Air 03/24/24 03:34 36.7 C 72 20 152/79 H 99 Room Air 03/24/24 00:17 36.9 C 74 20 120/69 96 Room Air 03/23/24 23:15 83 Laboratory Results 03/24/24 03/24/24 03/23/24 Range/Units 07:57 07:29 15:49 WBC 11.69 H (4.8-10.8) K/ul RBC 4.52 (4.20-5.40) M/uL Hgb 11.9 L (12.0-16.0) g/dl Hct 37.4 (37.0-47.0) % MCV 82.7 (80.0-100.0) fL MCH 26.3 (25.0-34.0) pg MCHC 31.8 L (32.0-36.0) g/dL RDW Std Deviation 43.6 (36.4-46.3) fL RDW Coeff of Chadwick 14.6 H (11.5-14.5) % Plt Count 426 H (130-400) K/uL MPV 9.6 (9.4-12.4) fL Immature Gran % (Auto) 0.4 % Neut % (Auto) 80.2 % Lymph % (Auto) 13.7 % Edwards % (Auto) 4.8 % Eos % (Auto) 0.5 % Baso % (Auto) 0.4 % Neut # (Auto) 9.37 H (1.40-6.50) K/uL Lymph # (Auto) 1.60 (1.20-3.40) K/uL Edwards # (Auto) 0.56 (0.11-0.59) K/uL Eos # (Auto) 0.06 (0.00-0.50) K/uL Baso # (Auto) 0.05 (0.00-0.20) K/uL Immature Gran # (Auto) 0.05 (0.01-0.20) K/uL Sodium 137 (136-145) mmol/L Potassium 3.6 (3.5-5.1) mmol/L Chloride 99 (98-107) mmol/L Carbon Dioxide 30 (21-32) mmol/L Anion Gap 8 (3-11) BUN 25 H (6-23) mg/dl Creatinine 0.95 (0.6-1.2) mg/dl Est Cr Clr Drug Dosing 50.0 ml/min Est GFR ( Amer) 70.8 ml/min Est GFR (Non-Af Amer) 61.1 ml/min BUN/Creatinine Ratio 26.3 H (10-20) Glucose 98 (70-99(Fasting)) mg/dl Calcium 8.9 (8.6-10.3) mg/dl Magnesium 1.8 (1.7-2.4) mg/dl Total Bilirubin 0.7 (0.2-1.0) mg/dl Direct Bilirubin 0.1 (0-0.2) mg/dl AST 11 L (13-39) U/L ALT 23 (7-52) U/L Alkaline Phosphatase 128 H (34-104) U/L Total Creatine Kinase 15 L (26-192) U/L Troponin I High Sens 19.0 H D (0-14) pg/ml Total Protein 6.5 (6.0-8.3) gm/dl Albumin 3.6 (3.4-5.0) gm/dl 25-OH Vitamin D Total 84.9 (30-100) ng/ml Lyme Disease Screen Positive H (Negative) Lyme Tier 2 IgG Confirm Pending Lyme Tier 2 IgM Confirm Pending 03/23/24 Range/Units 11:20 WBC (4.8-10.8) K/ul RBC (4.20-5.40) M/uL Hgb (12.0-16.0) g/dl Hct (37.0-47.0) % MCV (80.0-100.0) fL MCH (25.0-34.0) pg MCHC (32.0-36.0) g/dL RDW Std Deviation (36.4-46.3) fL RDW Coeff of Chadwick (11.5-14.5) % Plt Count (130-400) K/uL MPV (9.4-12.4) fL Immature Gran % (Auto) % Neut % (Auto) % Lymph % (Auto) % Edwards % (Auto) % Eos % (Auto) % Baso % (Auto) % Neut # (Auto) (1.40-6.50) K/uL Lymph # (Auto) (1.20-3.40) K/uL Edwards # (Auto) (0.11-0.59) K/uL Eos # (Auto) (0.00-0.50) K/uL Baso # (Auto) (0.00-0.20) K/uL Immature Gran # (Auto) (0.01-0.20) K/uL Sodium (136-145) mmol/L Potassium (3.5-5.1) mmol/L Chloride (98-107) mmol/L Carbon Dioxide (21-32) mmol/L Anion Gap (3-11) BUN (6-23) mg/dl Creatinine (0.6-1.2) mg/dl Est Cr Clr Drug Dosing ml/min Est GFR ( Amer) ml/min Est GFR (Non-Af Amer) ml/min BUN/Creatinine Ratio (10-20) Glucose (70-99(Fasting)) mg/dl Calcium (8.6-10.3) mg/dl Magnesium (1.7-2.4) mg/dl Total Bilirubin (0.2-1.0) mg/dl Direct Bilirubin (0-0.2) mg/dl AST (13-39) U/L ALT (7-52) U/L Alkaline Phosphatase (34-104) U/L Total Creatine Kinase (26-192) U/L Troponin I High Sens 30.9 H (0-14) pg/ml Total Protein (6.0-8.3) gm/dl Albumin (3.4-5.0) gm/dl 25-OH Vitamin D Total (30-100) ng/ml Lyme Disease Screen (Negative) Lyme Tier 2 IgG Confirm Lyme Tier 2 IgM Confirm Diagnostic Findings Chest CT 03/23/24 10:59 CT chest diagnostic w con CLINICAL HISTORY: Mid/upper central back pain s/p heavy lifting TECHNIQUE: Multidetector row helical CT of the chest was performed with intravenous contrast. Coronal and sagittal reformations were obtained. Automated dose lowering techniques and/or adjustment according to patient size were utilized for this exam. CT DOSE: 392.06 mGy.cm Comparison: None available at the time of this dictation. FINDINGS: Lungs and pleura: Normal. Heart and pericardium: Heart size is normal. No pericardial effusion. Vessels: Mild atherosclerotic changes in the aorta and coronary arteries. Mediastinum and rhonda: Subcentimeter lymph nodes are seen. Chest wall and lower neck: Small thyroid nodules are noted which do not require follow-up by ACR criteria. Abdomen: Unremarkable. Bones: Degenerative changes in the thoracic spine. IMPRESSION: No acute abnormalities in particular no evidence of acute fracture. ACT 112: Negative or not required by law. Electronically signed by: Zachariah English M.D. 03/23/2024 1:03 PM ECHOCARDIOGRAM 03/24/24 Compared with 06/19/2021 study, trace pericardial effusion now seen, otherwise no significant change. LV is normal in structure and function. LV EF 60-65% RV is normal in size and function. Mild mitral regurgitation. RVSP is normal Trace noncircumferential pericardial effusion (maximum depth few millimeters). Not hemodynamically significant. PG Care Time/CCT Total # of Minutes Spent Total Time Spent with Patient: Total time spent is greater than 50% in coordination of care (as documented) at patient's floor/unit and/or counseling patient: Coding Level of Care Code 21620 SUB INP/OBS CARE 3/50MIN Diagnoses Back pain M54.9 Elevated troponin R79.89
[2024-03-24 08:11] LABS: Basophils # (auto) 0.05 K/uL (0.00-0.20); Basophils % (auto) 0.4 %; Eosinophils # (auto) 0.06 K/uL (0.00-0.50); Eosinophils % (auto) 0.5 %; Hematocrit (blood only) 37.4 % (37.0-47.0); Hemoglobin 11.9 g/dl (12.0-16.0); Immature Granulocytes # (auto) 0.05 K/uL (0.01-0.20); Immature Granulocytes % (auto) 0.4 %; Lymphocytes % (auto) 13.7 %; Mean Corpuscular Hemoglobin 26.3 pg (25.0-34.0); Mean Corpuscular Hgb Conc 31.8 g/dL (32.0-36.0); Mean Corpuscular Volume 82.7 fL (80.0-100.0); Mean Platelet Volume 9.6 fL (9.4-12.4); Monocytes # (auto) 0.56 K/uL (0.11-0.59); Monocytes % (auto) 4.8 %; Neutrophils # (auto) 9.37 K/uL (1.40-6.50); Neutrophils % (auto) 80.2 %; Platelet Count 426 K/uL (130-400); RDW Coefficient of Variation 14.6 % (11.5-14.5); RDW Standard Deviation 43.6 fL (36.4-46.3); Red Blood Count 4.52 M/uL (4.20-5.40); White Blood Count 11.69 K/ul (4.8-10.8)
[2024-03-24] MEDS: oxyCODONE HCL IR 5 MG TAB (IMMEDIATE RELEASE) PO PRN (08:12)
[2024-03-24] MEDS: FAMOTIDINE 20 MG TAB PO SCH (08:23)
[2024-03-24 08:25] LABS: BUN Creatinine Ratio 26.3 (10-20); Calcium 8.9 mg/dl (8.6-10.3); Est GFR (African American) 70.8 ml/min; Est GFR (Non-African American) 61.1 ml/min; Potassium 3.6 mmol/L (3.5-5.1)
[2024-03-24 08:43] LABS: Albumin Level 3.6 gm/dl (3.4-5.0); Bilirubin Direct 0.1 mg/dl (0-0.2); Bilirubin,Total 0.7 mg/dl (0.2-1.0); Magnesium 1.8 mg/dl (1.7-2.4); Total Protein 6.5 gm/dl (6.0-8.3)
--- NOTE | 2024-03-24 09:01 | XCELERA ---
[id number]
[2024-03-24 12:44] LABS: Lyme Screen Rflx Confirmation Positive (Negative)
[2024-03-24] MEDS: POLYETHYLENE (MIRALAX) 17 GM PACK PO SCH (13:03)
[2024-03-24] MEDS: BACLOFEN 10 MG TAB PO SCH (13:03)
[2024-03-24] MEDS: LIDOCAINE 5% 1 PATCH TD SCH (13:03)
[2024-03-24 13:17] LABS: Lyme Ab IgG 2nd Tier Confirm Positive (Negative)
[2024-03-24 13:18] LABS: Lyme Ab IgM 2nd Tier Confirm Positive (Negative)
[2024-03-24] MEDS: DOCUSATE SODIUM 100 MG CAP PO SCH (15:31)
[2024-03-24] MEDS: DOXYCYCLINE HYCLATE 100 MG CAP PO SCH (21:03)
[2024-03-25] MEDS: HYDROmorphone INJ 0.5 MG/0.5 ML SYR IV PRN (00:09)
[2024-03-25] MEDS: ONDANSETRON INJ 2 MG/ML 2 ML VIAL IV PRN (02:32)
[2024-03-25] MEDS: diazePAM 5 MG TABLET PO ONE (04:14)
[2024-03-25] MEDS: MAGNESIUM SULFATE / D5W 1 GM/100 ML BAG IV SCH (04:15)
[2024-03-25] MEDS: diazePAM 5 MG/ML 10ML VIAL IV STA (04:23)
[2024-03-25 06:19] LABS: Hematocrit (blood only) 36.1 % (37.0-47.0); Hemoglobin 11.9 g/dl (12.0-16.0); Mean Corpuscular Hemoglobin 26.7 pg (25.0-34.0); Mean Corpuscular Volume 81.1 fL (80.0-100.0); Mean Platelet Volume 9.6 fL (9.4-12.4); Platelet Count 384 K/uL (130-400); RDW Standard Deviation 41.5 fL (36.4-46.3); Red Blood Count 4.45 M/uL (4.20-5.40); White Blood Count 14.99 K/ul (4.8-10.8)
[2024-03-25 06:31] LABS: Albumin Level 3.5 gm/dl (3.4-5.0); Bilirubin Direct 0.1 mg/dl (0-0.2); Bilirubin,Total 0.6 mg/dl (0.2-1.0); Calcium 8.9 mg/dl (8.6-10.3); Creatinine Clr Calc Pharmacy 43.9 ml/min; Est GFR (African American) 66.6 ml/min; Est GFR (Non-African American) 57.4 ml/min; Magnesium 2.5 mg/dl (1.7-2.4); Potassium 3.5 mmol/L (3.5-5.1); Total Protein 6.5 gm/dl (6.0-8.3)
[2024-03-25 06:44] LABS: Basophils # (auto) 0.05 K/uL (0.00-0.20); Basophils % (auto) 0.3 %; Eosinophils # (auto) 0.01 K/uL (0.00-0.50); Eosinophils % (auto) 0.1 %; Immature Granulocytes # (auto) 0.08 K/uL (0.01-0.20); Immature Granulocytes % (auto) 0.5 %; Lymphocytes # (auto) 0.81 K/uL (1.20-3.40); Lymphocytes % (auto) 5.4 %; Monocytes # (auto) 0.44 K/uL (0.11-0.59); Monocytes % (auto) 2.9 %; Neutrophils % (auto) 90.8 %; Ovalocytes 1+
[2024-03-25] MEDS: ACETAMINOPHEN 500 MG TAB PO SCH (07:14)
--- NOTE | 2024-03-25 07:53 | Hospitalist Progress Note ---
Date of Service March 25, 2024 Assessment & Plan (1) Back pain: Plan: Patient admitted for pain control for back pain following helping family this past Saturday/Saturday (March 15) railroad tie and felt pain in mid upper back area and saw PCP this past and prescribed rx for Flexeril and prednisone x7 day course * Of note, patient did also test POSITIVE for COVID-19 on 03/17 with symptoms of sudden onset fatigue, ,headache, nonproductive course and hoarse voice. No SOB or post-nasal drip and was rx 7 day prednisone and tessalon pearls at that time Reports pain worsened with movement and + tenderness to palpation, however no extremity numbness/tingling or focal weakness on admission CT cervical spine w/ no fracture or subluxation, does note T1-T2 moderate to space narrowing, L1-L2 moderate to severe narrowing. No lower extremity symptoms or red flag symptoms Admitted for pain control, therapy evaluations. If worsening or + neuro sx, f/u MRI recommended but w/o red flag sx and sx present for < 1month 03/24 Pain control: Tylenol, Dilaudid IV. Flexeril 5mg TID prn. ?Flexeril switch to baclofen if needed given prior ineffectiveness outpatient --> SWITCHING, made baclofen 10mg TID SCHEDULED Toradol IV available prn - RN to administer dose NOW Added oxycodone prn for PO opiate option. Added Lidocaine patch added given prior relief. Heating pad if needed/wanted Lovenox SQ for DVT proph Given hx GERD, added once daily Pepcid for GI proph (also on prednisone taper) Patient reports needing better control/wanting to monitor overnight and will plan to monitor pain control overnight and plan for dc 03/25 if improved pending therapy evaluations however was doing MUCH better in the afternoon. Check Lyme for completeness given ALP elevation. Vit D checked and wnl PT/OT consults pending 03/25 INCREASED pain overnight. Requirement of Valium and continued need for Dilaudid IV this morning. Will obtain MRI per request for further evaluation/consultation w/ Dr White if needed MRI thoracic spine obtained : * 1. No fracture or subluxation within the thoracic spine. * 2. Degenerative changes as described above most pronounced at the T1-T2 level. This demonstrates moderate to severe bilateral neural foraminal narrowing. * 3. No significant central canal narrowing within the thoracic spine. * 4. Normal signal intensity within the thoracic spinal cord. Dr White consulted to weigh in per discussion w/ family and patient however suspect given improvement in pain this afternoon likely ongoing PT/OT and pain control with possible outpatient pain management for injection Interestingly, did have POSITIVE LYME testing w/ IgM/IgG and was tx for Lyme last year for 3 weeks after removal of tick/sent for testing and was positive. Started Doxy PO BID 03/24 and would plan for extended course 28 days for possible contribution to bony/joint pain? Of note, did have reports discomfort w/ positions/movement concerning for pleuritic pain and given recent +COVID but without evidence for DVT obtained ddimer to r/o however was ELEVATED to [address] chest to r/o PE. CTA chest for PE NEGATIVE, but notes 3mm nodule. NO smoking hx/need for repeat imaging but can discuss w/ PCP in follow up Remains on Lovenox SQ while inpatient in the meantime Appears MORE COMFORTABLE this afternoon Continue pain control, lidocaine patch, baclofen TID. Tylenol 1gm Q8H scheduled added overnight for additional baseline control - continued Additional oxycodone/Dilaudid available prn along with Toradol. No heavy lifting recommended Will have repeat PT evals and monitoring overnight with eval with Dr White in AM Updated daughter in room x 2, is a physical therapist Decent appetite, passing more gas. Remains on bowel regimen with pain control and will increase miralax scheduled Questions/concerns addressed at this time. (2) Elevated troponin: Plan: Elevated troponin 30.9 on high sensitivity testing on admission. Suspect demand ischemia in the setting of pain. No CP reported. ?post viral. Did have recent + COVID testing less than [address] chest WITHOUT evidence for aortic abnormality EKG w/o acute ischemic findings, and repeat troponin trended DOWN --> 19.0 Telemetry with NSR 80s, occasional PAC She has not had any anterior chest pain, pain is all midline spine in her low back -- however see above, did obtain CT chest given recent COVId/elevated ddimer -- NEGATIVE ECHO obtained for completeness given family hx hypertrophic cardiomyopathy --> ECHO w/ normal LV size and function, EF 60-65%. RV is normal in size/function. Mild MR. RVSP is normal TRACE noncircumferential pericardial effusion (maximum depth few millimeters). NOT hemodynamically significant Check lyme for completeness -- POSITIVE as above. Planning for extended course w/ Doxy As above, awaiting PT/OT consults and pain control as main reason for admission (3) Positive Lyme disease serology: Plan: positive testing despite prior treatment, however both IgG/IgM positive and discussed w/ supervising provider. She did complete 21 day course for prior + testing on tick sent last year after removal started doxy 100mg BID, plan for 28 day course, follow up PCP ?contributing Did add anaplasmosis/babesia smear to eval for any co-infection HTN - Chronic, stable. - Continues on losartan. HLD - Continues atorvastatin. CK not elevated Asthma: recent rx for prednisone for +COVID as above. CT chest NEGATIVE for PE --Continue prednisone 40mg daily as already taking as outpatient x 2 more days - Albuterol inhaler available prn --On room air, 96% Plan DVT proph: Lovenox SQ while inpatient continued inpatient monitoring pain control as had a rough evening. Improving but waiting for eval by Dr White and repeat therapy cady (message sent to Chang from PT to repeat eval as was down for test this morning) Updated daughter at bedside x2 Hopeful dc on pain control/outpatient (or inpatient rehab if recommended by therapy evclyde on repeat) in AM 03/26 Admission and Anticipated Discharge Date Admission Date: March 23, 2024 Supervising Physician Co-Signing Physician Notes The patient was not seen by me. The chart was reviewed. Case discussed with JEYSON Myers. Agree with assessment and plan Subjective Attempted to see this morning, Initially, patient had been doing MUCH better and planned for discharge today on oral pain control with baclofen and lidocaine patch however patient w/ reports of worsening pain overnight when getting up out of bed/daughter in room and is physial therapist, request and ordered MRI thoracic spine for eval. Also discussed Lyme/possible needing extended treatment if MRI unremarkable but also reports of pain w/ moving and ddimer obtained given recent COVID infection and unfortunately IS ELEVATED, and down for MRI and CT Chest to r/o PE. Will reach out to ortho spine if abnormality on MRI scan, however may need additional work up if not improving w/ treatment. Evaluated patient around 12:30, following scans. Reviewed films w/ CTA chest and MRI thoracic spine. No acute PE or fracture. Dr White consulted to weigh in, message sent. Discussed Lyme testing -- patient reports tx a little over a year ago when found a tick and was sent and positive for Lyme and completed 3 weeks Doxycycline. Discussed given positive testing currently, decision to continue treatment and likely needing extended course. Cannot rule out contributing to back but did discuss without fracture or red flag symptoms, suspect ongoing pain control/therapy and follow up outpatient if needed/consideration for steroid injection. Decent appetite, passing more gas. Remains on bowel regimen with pain control. Questions/concerns addressed at this time. Physical Exam Physical Exam: General: 68 yo female, sitting in bed upon arrival, NAD, daughter at bedside, reporting improved compared to overnight HEENT: head atraumatic, normocephalic, mmm, trachea midline Resp: even/unlabored, no w/c/r, on room air CV: RRR, no significant mrg, no pitting edema/calf tenderness GI +BS, soft, slight distension but nontender : no barker MSK/Neuro:+tenderness to spinal palpation around T4-T8 midline. R>L, no bony step off No radicular symptoms on paraspinal palpation. Slightly increased right paraspinal muscular tone. dorsiflexion/plantar flexion intact, sensation intact, no calf tenderness/edema Extremities: Moving all extremities equally. Road Equipment Operator strength, hip flexion, ankle dorsiflexion/plantarflexion are 5/5 and symmetrical. No sensory deficits Psych: AOx3, cooperative with exam Results & Data Results & Data Vital Signs (Past 12 Hours) Vital Signs Temp Pulse Pulse Resp BP Pulse Ox O2 Del Method 03/25/24 04:09 36.9 C 81 20 183/88 H 100 Room Air 03/25/24 00:00 77 03/24/24 23:10 36.8 C 66 20 167/81 H 99 Room Air Laboratory Results 03/25/24 03/25/24 03/24/24 Range/Units 08:39 05:44 07:57 WBC 14.99 H (4.8-10.8) K/ul RBC 4.45 (4.20-5.40) M/uL Hgb 11.9 L (12.0-16.0) g/dl Hct 36.1 L (37.0-47.0) % MCV 81.1 (80.0-100.0) fL MCH 26.7 (25.0-34.0) pg MCHC 33.0 (32.0-36.0) g/dL RDW Std Deviation 41.5 (36.4-46.3) fL RDW Coeff of Chadwick 14.0 (11.5-14.5) % Plt Count 384 (130-400) K/uL MPV 9.6 (9.4-12.4) fL Immature Gran % (Auto) 0.5 % Neut % (Auto) 90.8 % Lymph % (Auto) 5.4 % Cascade % (Auto) 2.9 % Eos % (Auto) 0.1 % Baso % (Auto) 0.3 % Neut # (Auto) 13.60 H (1.40-6.50) K/uL Lymph # (Auto) 0.81 L (1.20-3.40) K/uL Cascade # (Auto) 0.44 (0.11-0.59) K/uL Eos # (Auto) 0.01 (0.00-0.50) K/uL Baso # (Auto) 0.05 (0.00-0.20) K/uL Immature Gran # (Auto) 0.08 (0.01-0.20) K/uL Ovalocytes 1+ D-Dimer 3290 H* (0-500) ug/L FEU Sodium 135 L (136-145) mmol/L Potassium 3.5 (3.5-5.1) mmol/L Chloride 99 (98-107) mmol/L Carbon Dioxide 28 (21-32) mmol/L Anion Gap 8 (3-11) BUN 28 H (6-23) mg/dl Creatinine 1.00 (0.6-1.2) mg/dl Est Cr Clr Drug Dosing 43.9 ml/min Est GFR ( Amer) 66.6 ml/min Est GFR (Non-Af Amer) 57.4 ml/min BUN/Creatinine Ratio 28.0 H (10-20) Glucose 160 H (70-99(Fasting)) mg/dl Calcium 8.9 (8.6-10.3) mg/dl Magnesium 2.5 H (1.7-2.4) mg/dl Total Bilirubin 0.6 (0.2-1.0) mg/dl Direct Bilirubin 0.1 (0-0.2) mg/dl AST 11 L (13-39) U/L ALT 19 (7-52) U/L Alkaline Phosphatase 117 H (34-104) U/L Total Protein 6.5 (6.0-8.3) gm/dl Albumin 3.5 (3.4-5.0) gm/dl Anaplasma Smear Pending Babesia Smear Pending Babesia microti DNA PCR Pending Lyme Tier 2 IgG Confirm Positive H (Negative) Lyme Tier 2 IgM Confirm Positive H (Negative) Diagnostic Findings Thoracic Spine MRI 03/25/24 08:07 THORACIC SPINE MRI HISTORY: injury, uncontrolled/worsened back pain TECHNIQUE: Multiplanar multisequence MRI of the thoracic spine was performed without the use of contrast. COMPARISON: CT thoracic spine 03/23/2024. FINDINGS: Localizer images demonstrate a 3.4 cm defect within the right parietal lobe which could be due to an old infarct or old postoperative change. This is only partially imaged on this study. No acute fractures of fixation within the thoracic spine. A T3 vertebral body hemangioma is noted. No suspicious osseous lesions. Moderate disc space narrowing at T1-T2 with a broad-based posterior disc bulge asymmetric to the right. No significant central canal narrowing. There is moderate to severe bilateral neural foraminal narrowing. Broad-based posterior disc bulge at T2-T3 without significant central canal or neural foraminal narrowing. There is a 3 mm left paracentral focal disc protrusion at T7-T8 without significant central canal or neural foraminal narrowing. Nondisplaced. The mid thoracic spine is noted. There are severe disc space narro wing at L5-S1 with a broad-based posterior disc bulge. No significant central canal narrowing at this level. The conus terminates at the T12-L1 disc space level. The thoracic spinal cord is normal and course, caliber, and signal intensity. Paravertebral soft tissues are unremarkable. No epidural fluid collections. Degenerative changes within the cervical spine are noted. IMPRESSION: 1. No fracture or subluxation within the thoracic spine. 2. Degenerative changes as described above most pronounced at the T1-T2 level. This demonstrates moderate to severe bilateral neural foraminal narrowing. 3. No significant central canal narrowing within the thoracic spine. 4. Normal signal intensity within the thoracic spinal cord. ACT 112: Negative or not required by law. Electronically signed by: Anand Figueroa M.D. 03/25/2024 11:28 AM Chest CTA 03/25/24 09:56 CHEST CTA for PULMONARY ARTERIES CT DOSE: 421.3 mGy.cm HISTORY: Atypical chest pain. TECHNIQUE: Multiaxial CT images of the chest were performed following the intravenous administration of contrast to evaluate the pulmonary arteries. 3D/Maximal intensity projection images were also obtained. Sagittal and coronal reformations were also reviewed. A dose lowering technique was utilized adhering to the principles of ALARA. COMPARISON STUDY: Chest CT 03/23/2024. FINDINGS: Normal caliber thoracic aorta with no evidence for a dissection. The heart is normal in size. No pleural or pericardial effusions. Moderate coronary artery calcifications are noted. No filling defects within the pulmonary arteries to suggest a pulmonary embolus. No mediastinal or hilar lymphadenopathy. Calcified subcarinal and right hilar lymph nodes are noted. Normal esophagus. Limited views the upper abdomen demonstrate a normal liver, spleen, and adrenal glands. No acute fractures. The central airways are patent. No pneumothorax. No focal lung consolidations to suggest a pneumonia. Stable 3 mm nodule within the right lung apex on image 208. No evidence for pulmonary edema. Calcified granuloma within the right lower lobe. IMPRESSION: 1. No evidence for a pulmonary embolus. 2. No focal lung consolidations to suggest a pneumonia. 3. Moderate coronary artery calcifications. 4. Stable 3 mm nodule within the right lung apex. Please refer to below summary of Fleischner criteria recommendations for follow- up of incidental CT nodules (Toan Mendez, Guidelines for management of small pulmonary nodules detected on CT scans: A statement from the Fleischner Society, Radiology 237: [phone].) SOLID NODULES Solitary nodule size: <6 mm * Low risk patients: no follow-up needed * high risk patients: optional CT at 12 months Solitary nodule size: 6-8 mm * Low risk patients: follow-up at 6-12 months, then consider further follow-up at 18-24 months * high risk patients: initial follow-up CT at 6-12 months and then at 18-24 months if no change Solitary nodule size: >8 mm * either low or high risk patients - consider follow-up CT at 3 months, and/or CT-PET, and/or biopsy Multiple nodules size: <6 mm * Low risk patients: no routine follow-up * high risk patients: optional CT at 12 months Multiple nodules size: 6-8 mm * Low risk patients: follow-up at 3-6 months, then consider further follow-up at 18-24 months * high risk patients: follow-up at 3-6 months, then at 18-24 months if no change Multiple nodules size: >8 mm * Low risk patients: follow-up at 3-6 months, then consider further follow-up at 18-24 months * high risk patients: follow-up at 3-6 months, then at 18-24 months if no change Note: newly detected indeterminate nodule in persons 35 years of age or older. * Low risk patients: minimal or absent history of smoking and/or other known risk factors * high risk patients: history of smoking or of other known risk factors (e.g. first degree relative with lung cancer, or exposure to asbestos, radon, uranium) * if a nodule up to 8 mm is partly solid or is ground glass further follow-up is required after 24 months to exclude possible slow growing adenocarcinoma (JENNA) SUBSOLID NODULES Solitary pure ground-glass nodule * nodule size <6 mm - no CT follow-up required * nodule size >=6 mm - follow-up CT at 6-12 months, then every 2 years until 5 years Solitary part-solid nodule * nodule size <6 mm - no CT follow-up required * nodule size >=6 mm - follow-up CT at 3-6 months. If unchanged, and solid component remains <6 mm, then annual follow-up for 5 years Multiple subsolid nodules * nodule size <6 mm - follow-up CT at 3-6 months, consider further follow-up at 2 and 4 years if stable * nodule size >=6 mm - follow-up CT at 3-6 months, subsequent management based on the most suspicious nodule(s) ACT 112: Negative or not required by law. Electronically signed by: Anand Figueroa M.D. 03/25/2024 11:50 AM PG Care Time/CCT Total # of Minutes Spent Total Time Spent with Patient: Total time spent is greater than 50% in coordination of care (as documented) at patient's floor/unit and/or counseling patient: Coding Level of Care Code 90849 SUB INP/OBS CARE 3/50MIN Diagnoses Back pain M54.9 Elevated troponin R79.89 Positive Lyme disease serology R76.8
[2024-03-25 09:55] LABS: D Dimer 3290 ug/L FEU (0-500)
[2024-03-25] MEDS: OPTIRAY 320 125ml IV ONE (11:08)
--- NOTE | 2024-03-25 11:29 | Magnetic Resonance Report ---
THORACIC SPINE MRI HISTORY: injury, uncontrolled/worsened back pain TECHNIQUE: Multiplanar multisequence MRI of the thoracic spine was performed without the use of contr ast. COMPARISON: CT thoracic spine 03/23/2024. FINDINGS: Localizer images demonstrate a 3.4 cm defect within the right parietal lobe which could be due to an old infarct or old postoperative change. This is only partially imaged on this study. No acute fractu res of fixation within the thoracic spine. A T3 vertebral body hemangioma is noted. No suspicious oss eous lesions. Moderate disc space narrowing at T1-T2 with a broad-based posterior disc bulge asymmetr ic to the right. No significant central canal narrowing. There is moderate to severe bilateral neural foraminal narrowing. Broad-based posterior disc bulge at T2-T3 without significant central canal or neural foraminal narrowing. There is a 3 mm left paracentral focal disc protrusion at T7-T8 without s ignificant central canal or neural foraminal narrowing. Nondisplaced. The mid thoracic spine is noted . There are severe disc space narrowing at L5-S1 with a broad-based posterior disc bulge. No signific ant central canal narrowing at this level. The conus terminates at the T12-L1 disc space level. The t horacic spinal cord is normal and course, caliber, and signal intensity. Paravertebral soft tissues a re unremarkable. No epidural fluid collections. Degenerative changes within the cervical spine are no stuart. IMPRESSION: 1. No fracture or subluxation within the thoracic spine. 2. Degenerative changes as described above most pronounced at the T1-T2 level. This demonstrates mode rate to severe bilateral neural foraminal narrowing. 3. No significant central canal narrowing within the thoracic spine. 4. Normal signal intensity within the thoracic spinal cord. ACT 112: Negative or not required by law. Electronically signed by: Anand Figueroa M.D. 03/25/2024 11:28 AM
--- NOTE | 2024-03-25 11:52 | CT Scan Report ---
CHEST CTA for PULMONARY ARTERIES CT DOSE: 421.3 mGy.cm HISTORY: Atypical chest pain. TECHNIQUE: Multiaxial CT images of the chest were performed following the intravenous administration of contrast to evaluate the pulmonary arteries. 3D/Maximal intensity projection images were also obta ined. Sagittal and coronal reformations were also reviewed. A dose lowering technique was utilized a dhering to the principles of ALARA. COMPARISON STUDY: Chest CT 03/23/2024. FINDINGS: Normal caliber thoracic aorta with no evidence for a dissection. The heart is normal in siz e. No pleural or pericardial effusions. Moderate coronary artery calcifications are noted. No filling defects within the pulmonary arteries to suggest a pulmonary embolus. No mediastinal or hilar lympha denopathy. Calcified subcarinal and right hilar lymph nodes are noted. Normal esophagus. Limited view s the upper abdomen demonstrate a normal liver, spleen, and adrenal glands. No acute fractures. The c entral airways are patent. No pneumothorax. No focal lung consolidations to suggest a pneumonia. Stab le 3 mm nodule within the right lung apex on image 208. No evidence for pulmonary edema. Calcified gr anuloma within the right lower lobe. IMPRESSION: 1. No evidence for a pulmonary embolus. 2. No focal lung consolidations to suggest a pneumonia. 3. Moderate coronary artery calcifications. 4. Stable 3 mm nodule within the right lung apex. Please refer to below summary of Fleischner criteria recommendations for follow-up of incidental CT n odules (Toan Mendez, Guidelines for management of small pulmonary nodules detected on CT scans: A sta tement from the Fleischner Society, Radiology 237: [phone].) SOLID NODULES Solitary nodule size: <6 mm * Low risk patients: no follow-up needed * high risk patients: optional CT at 12 months Solitary nodule size: 6-8 mm * Low risk patients: follow-up at 6-12 months, then consider further follow-up at 18-24 months * high risk patients: initial follow-up CT at 6-12 months and then at 18-24 months if no change Solitary nodule size: >8 mm * either low or high risk patients - consider follow-up CT at 3 months, and/or CT-PET, and/or biopsy Multiple nodules size: <6 mm * Low risk patients: no routine follow-up * high risk patients: optional CT at 12 months Multiple nodules size: 6-8 mm * Low risk patients: follow-up at 3-6 months, then consider further follow-up at 18-24 months * high risk patients: follow-up at 3-6 months, then at 18-24 months if no change Multiple nodules size: >8 mm * Low risk patients: follow-up at 3-6 months, then consider further follow-up at 18-24 months * high risk patients: follow-up at 3-6 months, then at 18-24 months if no change Note: newly detected indeterminate nodule in persons 35 years of age or older. * Low risk patients: minimal or absent history of smoking and/or other known risk factors * high risk patients: history of smoking or of other known risk factors (e.g. first degree relative with lung cancer, or exposure to asbestos, radon, uranium) * if a nodule up to 8 mm is partly solid or is ground glass further follow-up is required after 24 m onths to exclude possible slow growing adenocarcinoma (JENNA) SUBSOLID NODULES Solitary pure ground-glass nodule * nodule size <6 mm - no CT follow-up required * nodule size >=6 mm - follow-up CT at 6-12 months, then every 2 years until 5 years Solitary part-solid nodule * nodule size <6 mm - no CT follow-up required * nodule size >=6 mm - follow-up CT at 3-6 months. If unchanged, and solid component remains <6 mm, then annual follow-up for 5 years Multiple subsolid nodules * nodule size <6 mm - follow-up CT at 3-6 months, consider further follow-up at 2 and 4 years if sta ble * nodule size >=6 mm - follow-up CT at 3-6 months, subsequent management based on the most suspiciou s nodule(s) ACT 112: Negative or not required by law. Electronically signed by: Anand Figueroa M.D. 03/25/2024 11:50 AM
[2024-03-25] MEDS: POLYETHYLENE (MIRALAX) 17 GM PACK PO SCH (14:13)
[2024-03-25] MEDS: POLYETHYLENE (MIRALAX) 17 GM PACK PO PRN (22:36)
--- NOTE | 2024-03-26 07:43 | Hospitalist Progress Note ---
Date of Service March 26, 2024 Assessment & Plan (1) Back pain: Plan: Patient admitted for pain control for back pain following helping family this past Saturday/Saturday (March 15) railroad tie and felt pain in mid upper back area and saw PCP this past and prescribed rx for Flexeril and prednisone x7 day course * Of note, patient did also test POSITIVE for COVID-19 on 03/17 with symptoms of sudden onset fatigue, ,headache, nonproductive course and hoarse voice. No SOB or post-nasal drip and was rx 7 day prednisone and tessalon pearls at that time Reports pain worsened with movement and + tenderness to palpation, however no extremity numbness/tingling or focal weakness on admission CT cervical spine w/ no fracture or subluxation, does note T1-T2 moderate to space narrowing, L1-L2 moderate to severe narrowing. No lower extremity symptoms or red flag symptoms Admitted for pain control, therapy evaluations. If worsening or + neuro sx, f/u MRI recommended but w/o red flag sx and sx present for < 1month 03/24 Pain control: Tylenol, Dilaudid IV. Flexeril 5mg TID prn. ?Flexeril switch to baclofen if needed given prior ineffectiveness outpatient --> SWITCHING, made baclofen 10mg TID SCHEDULED Toradol IV available prn - RN to administer dose NOW Added oxycodone prn for PO opiate option. Added Lidocaine patch added given prior relief. Heating pad if needed/wanted Lovenox SQ for DVT proph Given hx GERD, added once daily Pepcid for GI proph (also on prednisone taper) Patient reports needing better control/wanting to monitor overnight and will plan to monitor pain control overnight and plan for dc 03/25 if improved pending therapy evaluations however was doing MUCH better in the afternoon. Check Lyme for completeness given ALP elevation. Vit D checked and wnl PT/OT consults pending 03/25 INCREASED pain overnight. Requirement of Valium and continued need for Dilaudid IV in the morning to get control. MRI thoracic spine obtained for further eval and Dr Whtie consulted MRI thoracic spine without fracture/subluxation. Does have degenerative changes most pronounced at T1-T2 level, moderate to severe bilateral neural foraminal narrowing but no central canal narrowing. normal cord signal. +Lyme testing, Doxy started -- see prior note, would plan to complete 28 day course CTA chest NEGATIVE for PE, checked given recent COVID +ddimer testing Lovenox SQ while inpatient Continued lidocaine patch, tylenol scheduled, baclofen 10mg TID with toradol/dilaudid and oxycodone as needed. Prednisone course 03/26 Dr White saw this morning, muscle strain. Continue conservative measures and outpatient therapy. PT saw this morning ,continued outpt PT planned. Avoid heavy lifting/pending at this time recommended Had INCREASED pain again overnight while attempting to stay on top of pain and was in tears this morning when waiting for nursing to provide medications but appeared more comfortable on exam Continued on bowel regimen, did have SMALL bowel movement but appears w/ palpable stool/slight worsened distension likely worsened by pain medications. Ambulation encouraged, miralax TID/colace/senna. Agreeable to suppository for today INCREASING BACLOFEN to 20mg TID as has tolerated without issue. Added heating pad/topical voltaren. Continue tylenol scheduled. Toradol/opiates available if needed Continuing to monitor overnight to ensure no issues again overnight/need for ongoing IV therapy with increased muscle spasm medications and if stable will plan for dc in AM 03/27 with outpatient therapy (2) Elevated troponin: Plan: Elevated troponin 30.9 on high sensitivity testing on admission. Suspect demand ischemia in the setting of pain.No CP reported.?post viral. Did have recent + COVID testing less than [address] chest WITHOUT evidence for aortic abnormality EKG w/o acute ischemic findings, and repeat troponin trended DOWN --> 19.0 Telemetry with NSR 80s, occasional PAC She has not had any anterior chest pain, pain is all midline spine in her low back -- however see above, did obtain CT chest given recent COVId/elevated ddimer -- NEGATIVE ECHO obtained for completeness given family hx hypertrophic cardiomyopathy --> ECHO w/ normal LV size and function, EF 60-65%. RV is normal in size/function. Mild MR. RVSP is normal TRACE noncircumferential pericardial effusion (maximum depth few millimeters). NOT hemodynamically significant Checked lyme for completeness -- POSITIVE as above. Planning for extended course w/ Doxy (3) Positive Lyme disease serology: Plan: positive testing despite prior treatment, however both IgG/IgM positive and discussed w/ supervising provider. She did complete 21 day course for prior + testing on tick sent last year after removal started doxy 100mg BID, plan for 28 day course, follow up PCP ?contributing to current presentation Did add anaplasmosis/babesia smear to eval for any co-infection HTN - Chronic, stable. HOWEVER did have elevations in BP this morning w/ increased pain to 10/10. Repeat after medications w/ improvement to 170/90 and will monitor - Continues on losartan for now - MOnitor for need for additional prn HLD - Continues atorvastatin. CK not elevated Asthma: recent rx for prednisone for +COVID as above. CT chest NEGATIVE for PE --Continue prednisone 40mg daily as already taking, last dose for today - Albuterol inhaler available prn --On room air, 98% Plan DVT proph: Lovenox SQ while inpatient was going to dc today given improvement in pain in the evening however increased overnight/need for IV dilaudid and increasing baclofen/adding voltaren/heating pad and if stable/improved on oral medications will plan for dc in AM with ongoing outpatient therapy Admission and Anticipated Discharge Date Admission Date: March 25, 2024 Supervising Physician Co-Signing Physician Notes The patient was not seen by me. The chart was reviewed. Case discussed with JEYSON Myers. Agree with assessment and plan Subjective Evaluated this morning, had a rough night. Reports she was trying to stay on top of the pain but had significant increase overnight and was about a 3-4 when rang talbot but by the time nursing able to come had been a 7 and increased to a 10 by the time able to get medications and was in tears. Suspect BP elevation this morning in setting of pain, improved on repeat. She reports she had a SMALL bowel movement, does have some discomfort when attempting to move bowels. Agreeable to a suppository. Discussed increasing her baclofen dosing to 20mg TID, does not make her sleepy/fatigued/drowsy, also will add topical voltaren/heating pad. Toradol available IV prn. Prior reports fentanyl effective and dilaudid/oxycodone available if needed. Discussed monitoring pain control overnight and bowel movement but if pain controlled on oral meds without need for IV can plan for outpatient physical therapy. Was seen this morning by therapy and agreed with plan. No RUQ pain, no shingles rash (was vaccinated) Questions/concerns addressed at this time. Physical Exam Physical Exam: General: 68 yo female, sitting in bed upon arrival, NAD HEENT: head atraumatic, normocephalic, mmm, trachea midline Resp: even/unlabored, no w/c/r, on room air CV: RRR, no significant mrg, no pitting edema/calf tenderness GI +BS, soft, slightly more distension today, but no overt tenderness, +palpable stool RLQ, no RUQ tenderness : no barker MSK/Neuro:+tenderness to spinal palpation around T4-T8 midline. R>L paraspinal muscle fullness on the right. no bony step off No radicular symptoms on paraspinal palpation. Slightly increased right paraspinal muscular tone. dorsiflexion/plantar flexion intact, sensation intact, no calf tenderness/edema Extremities: Moving all extremities equally. Facing Baster strength, hip flexion, ankle dorsiflexion/plantarflexion are 5/5 and symmetrical. No sensory deficits Psych: AOx3, cooperative with exam Results & Data Results & Data Vital Signs (Past 12 Hours) Vital Signs Temp Pulse Pulse Resp BP BP Pulse Ox 03/26/24 07:39 36.5 C 83 20 217/98 H 98 03/26/24 07:00 84 03/26/24 04:10 36.6 C 84 16 133/77 97 03/26/24 00:00 75 03/25/24 23:17 36.6 C 70 18 111/68 96 03/25/24 19:50 36.7 C 88 18 145/79 H 97 O2 Del Method 03/26/24 07:39 Room Air 03/26/24 07:00 03/26/24 04:10 Room Air 03/26/24 00:00 03/25/24 23:17 Room Air 03/25/24 19:50 Room Air Laboratory Results 03/26/24 03/26/24 03/25/24 Range/Units 08:48 07:27 05:44 WBC 9.99 (4.8-10.8) K/ul RBC 4.55 (4.20-5.40) M/uL Hgb 12.2 (12.0-16.0) g/dl Hct 36.5 L (37.0-47.0) % MCV 80.2 (80.0-100.0) fL MCH 26.8 (25.0-34.0) pg MCHC 33.4 (32.0-36.0) g/dL RDW Std Deviation 41.7 (36.4-46.3) fL RDW Coeff of Chadwick 14.3 (11.5-14.5) % Plt Count 420 H (130-400) K/uL MPV 9.2 L (9.4-12.4) fL Immature Gran % (Auto) 0.8 % Neut % (Auto) 76.4 % Lymph % (Auto) 17.7 % [place] % (Auto) 4.1 % Eos % (Auto) 0.7 % Baso % (Auto) 0.3 % Neut # (Auto) 7.63 H (1.40-6.50) K/uL Lymph # (Auto) 1.77 (1.20-3.40) K/uL [place] # (Auto) 0.41 (0.11-0.59) K/uL Eos # (Auto) 0.07 (0.00-0.50) K/uL Baso # (Auto) 0.03 (0.00-0.20) K/uL Immature Gran # (Auto) 0.08 (0.01-0.20) K/uL Sodium 134 L (136-145) mmol/L Potassium 3.9 (3.5-5.1) mmol/L Chloride 97 L (98-107) mmol/L Carbon Dioxide 31 (21-32) mmol/L Anion Gap 6 (3-11) BUN 24 H (6-23) mg/dl Creatinine 0.83 (0.6-1.2) mg/dl Est Cr Clr Drug Dosing 57.7 ml/min Est GFR ( Amer) 83.4 ml/min Est GFR (Non-Af Amer) 71.9 ml/min BUN/Creatinine Ratio 28.9 H (10-20) Glucose 107 H (70-99(Fasting)) mg/dl Calcium 9.0 (8.6-10.3) mg/dl Magnesium 2.0 (1.7-2.4) mg/dl Total Bilirubin 0.4 (0.2-1.0) mg/dl Direct Bilirubin 0.1 (0-0.2) mg/dl AST 11 L (13-39) U/L ALT 18 (7-52) U/L Alkaline Phosphatase 118 H (34-104) U/L Total Protein 6.9 (6.0-8.3) gm/dl Albumin 3.6 (3.4-5.0) gm/dl Urine Color Yellow Urine Appearance Clear (Clear) Urine pH 5.5 (4.5-7.5) Ur Specific [place] 1.029 (1.000-1.030) Urine Protein Trace H (Negative) Urine Glucose (UA) Negative (Negative) Urine Ketones Negative (Negative) Urine Blood Negative (Negative) Urine Nitrite Negative (Negative) Urine Bilirubin Negative (Negative) Urine Urobilinogen Negative (Negative) Ur Leukocyte Esterase Negative (Negative) Urine WBC (Auto) 0-5 (0-5) /hpf Urine RBC (Auto) 0-2 (0-2) /hpf U Hyaline Cast (Auto) 0-2 (0-2) /lpf U Epithel Cells (Auto) 0-2 (0-2) /hpf Urine Bacteria (Auto) None Seen (None Seen) Anaplasma Smear See Comment A. phagocytophilum DNA Pending Babesia Smear See Comment Babesia microti DNA PCR Pending PG Care Time/CCT Total # of Minutes Spent Total Time Spent with Patient: Total time spent is greater than 50% in coordination of care (as documented) at patient's floor/unit and/or counseling patient: Coding Level of Care Code 55511 SUB INP/OBS CARE 3/50MIN Diagnoses Back pain M54.9 Elevated troponin R79.89 Positive Lyme disease serology R76.8
[2024-03-26 07:51] LABS: Basophils # (auto) 0.03 K/uL (0.00-0.20); Basophils % (auto) 0.3 %; Eosinophils # (auto) 0.07 K/uL (0.00-0.50); Eosinophils % (auto) 0.7 %; Hematocrit (blood only) 36.5 % (37.0-47.0); Hemoglobin 12.2 g/dl (12.0-16.0); Immature Granulocytes # (auto) 0.08 K/uL (0.01-0.20); Immature Granulocytes % (auto) 0.8 %; Lymphocytes # (auto) 1.77 K/uL (1.20-3.40); Lymphocytes % (auto) 17.7 %; Mean Corpuscular Hemoglobin 26.8 pg (25.0-34.0); Mean Corpuscular Hgb Conc 33.4 g/dL (32.0-36.0); Mean Corpuscular Volume 80.2 fL (80.0-100.0); Mean Platelet Volume 9.2 fL (9.4-12.4); Monocytes # (auto) 0.41 K/uL (0.11-0.59); Monocytes % (auto) 4.1 %; Neutrophils # (auto) 7.63 K/uL (1.40-6.50); Neutrophils % (auto) 76.4 %; Platelet Count 420 K/uL (130-400); RDW Coefficient of Variation 14.3 % (11.5-14.5); RDW Standard Deviation 41.7 fL (36.4-46.3); Red Blood Count 4.55 M/uL (4.20-5.40); White Blood Count 9.99 K/ul (4.8-10.8)
[2024-03-26 08:36] LABS: Albumin Level 3.6 gm/dl (3.4-5.0); BUN Creatinine Ratio 28.9 (10-20); Bilirubin Direct 0.1 mg/dl (0-0.2); Bilirubin,Total 0.4 mg/dl (0.2-1.0); Creatinine Clr Calc Pharmacy 57.7 ml/min; Est GFR (African American) 83.4 ml/min; Est GFR (Non-African American) 71.9 ml/min; Potassium 3.9 mmol/L (3.5-5.1); Total Protein 6.9 gm/dl (6.0-8.3)
--- NOTE | 2024-03-26 08:39 | Orthopedic Consultation ---
Date of Consultation March 26, 2024 Assessment & Plan (1) Sprain of thoracic spine: Assessment strain sprain mid thoracic spine and periscapular musculature. Plan at this time I would encourage her to undergo light activity for the next several weeks. If symptoms persist she would need to pursue physical therapy. There is no indication for any surgical invention. There is no indication of radiculopathy. History of Present Illness Reason for Consultation: Thoracic back pain status post lifting. Attending Physician: Chong Wang MD History of Present Illness This very pleasant 68-year-old female that presents with significant thoracic back pain after moving some railroad ties to adjust for her garden. Today she states the pain is at the mid thoracic region radiating a bit to the left in the Yogesh scapular region. Does not radiate around her entire rib cage. She has not no issues with standing walking or mobilization. Allergies Allergy/AdvReac Type Severity Reaction Status Date / Time No Known Drug Allergies Allergy Verified 03/19/24 14:03 [place] extract Allergy Verified 03/19/24 14:03 Home Medications Medication Instructions Recorded Confirmed Type multivitamin 1 tab PO QAM 10/08/18 03/23/24 History atorvastatin 40 mg tablet 40 mg PO DAILY #90 tabs 05/07/23 03/23/24 Rx losartan 50 mg tablet 50 mg PO DAILY #90 tabs 05/07/23 03/23/24 Rx albuterol sulfate 90 mcg/actuation See Rx Instructions .Route 11/22/23 03/23/24 Rx aerosol inhaler (Ventolin HFA) .COMPLEX #18 grams benzonatate 200 mg capsule 200 mg PO TID PRN cough #20 caps 03/09/24 03/23/24 Rx prednisone 20 mg tablet 40 mg (2 x 20 mg) PO DAILY #14 tabs 03/19/24 03/23/24 Rx cyclobenzaprine 5 mg tablet 5 - 10 mg PO TID PRN muscle spasm 03/23/24 03/23/24 History baclofen 10 mg tablet 10 mg PO TID #20 tabs 03/24/24 Rx doxycycline hyclate 100 mg capsule 100 mg PO BID 14 days #26 caps 03/24/24 Rx lidocaine 5 % topical patch 1 patch transdermal QAM #15 ea 03/24/24 Rx Patient History Medical History (Updated 03/25/24 @ 07:52 by Cindy Tavares PA-C) Cervical radiculopathy Fluid retention Surgical History History of total abdominal hysterectomy and bilateral salpingo-oophorectomy History of bilateral tubal ligation History of dilatation and curettage History of craniotomy depressed skull fx--repair at 2yrs old History of elbow surgery right History of hand surgery left thumb removed part of bone History of colonoscopy History of wisdom tooth extraction Family History Mother Family history of diabetes mellitus Grandmother (Maternal) Family history of diabetes mellitus Myocardial infarction Other No family history of adverse response to anesthesia Denies family history of Ovarian cancer Prostate cancer Breast cancer Colorectal cancer Social History Smoking Status: Never smoker Second Hand Exposure: No; Do You Dip or Chew Tobacco: No; Tobacco Cessation Education Requested by Patient: No Hx Alcohol Use: No Hx Substance Use: No Preferred Language: Estonian Communication Ability: Effective Formal Waiter/Waitress Required: No Beliefs That Will Affect Care: None marital status: / Current Living Situation: Alone current occupational status: retired How many Children do You have: 3 Other Information That Helps Us Care for You: Yes Feels Safe at Home: Yes Safety Concerns: Feels Safe At This Time Childhood Exposure to Second-Hand Smoke: No Diet: regular caffeine: Yes (tea) Dental Care, Regularly: Yes Physical Activity Frequency: Daily Seatbelt Use: always Sunscreen Use: Yes Assistive Devices: None Physical Exam Physical Exam: On exam she has no significant pain to palpation percussion of the thoracolumbar junction. She has some modest tenderness palpation of the periscapular musculature. She exhibits excellent range of motion to the left arm and excellent strength. Results & Data Vital Signs (Past 12 Hours) Vital Signs Temp Pulse Pulse Resp BP BP Pulse Ox 03/26/24 07:40 170/90 H 03/26/24 07:39 36.5 C 83 20 217/98 H 98 03/26/24 07:00 84 03/26/24 04:10 36.6 C 84 16 133/77 97 03/26/24 00:00 75 03/25/24 23:17 36.6 C 70 18 111/68 96 O2 Del Method 03/26/24 07:40 03/26/24 07:39 Room Air 03/26/24 07:00 03/26/24 04:10 Room Air 03/26/24 00:00 03/25/24 23:17 Room Air (1) Sprain of thoracic spine Encounter type: initial encounter Qualified Code(s): S23.9XXA - Sprain of unspecified parts of thorax, initial encounter
[2024-03-26 09:23] LABS: Appearance Urine Clear (Clear); Bacteria Urine Automated None Seen (None Seen); Bilirubin Urine Negative (Negative); Blood Urine Negative (Negative); Cast Urine Automated 0-2 /lpf (0-2); Color Urine Yellow; Epithelial Cell Urine Auto 0-2 /hpf (0-2); Glucose Urine UA Negative (Negative); Ketones Urine Negative (Negative); Leukocyte Esterase Urine Negative (Negative); Nitrite Urine Negative (Negative); Protein Urine Trace (Negative); RBC Urine Automated 0-2 /hpf (0-2); Specific Gravity Urine 1.029 (1.000-1.030); Urobilinogen Urine Negative (Negative); WBC Urine Automated 0-5 /hpf (0-5); pH Urine 5.5 (4.5-7.5)
[2024-03-26] MEDS: bisacodyL 10 MG SUPP PR STA (11:12)
[2024-03-26] MEDS: DICLOFENAC SOD 1% GEL 100 GM TUBE EXT SCH (11:27)
[2024-03-26] MEDS: BACLOFEN 20 MG TAB PO SCH (13:14)
--- NOTE | 2024-03-27 07:51 | Hospitalist Progress Note ---
Date of Service March 27, 2024 Assessment & Plan (1) Back pain: Plan: Patient admitted for pain control for back pain following helping family this past Saturday/Saturday (March 15) railroad tie and felt pain in mid upper back area and saw PCP this past and prescribed rx for Flexeril and prednisone x7 day course * Of note, patient did also test POSITIVE for COVID-19 on 03/17 with symptoms of sudden onset fatigue, ,headache, nonproductive course and hoarse voice. No SOB or post-nasal drip and was rx 7 day prednisone and tessalon pearls at that time Reports pain worsened with movement and + tenderness to palpation, however no extremity numbness/tingling or focal weakness on admission CT cervical spine w/ no fracture or subluxation, does note T1-T2 moderate to space narrowing, L1-L2 moderate to severe narrowing. No lower extremity symptoms or red flag symptoms Admitted for pain control, therapy evaluations. If worsening or + neuro sx, f/u MRI recommended but w/o red flag sx and sx present for < 1month CTA chest negative given +ddimer/recent COVID. Remains on Lovenox SQ for DVT prophylaxis MRI thoracic spine w/o fracture/subluxation. Does have degenerative changes most pronounced at T1-T2 level, moderate to severe bilateral neural foraminal narrowing but no central canal narrowing. normal cord signal. Dr White saw, muscular strain. ongoing pain control/therapy. no intervention. Ongoing issues over past 2 nights with pain control. Had significant improvement w/ scheduled baclofen and heating pad yesterday but ongoing pain overnight into this morning requiring IV opiates. Pain management consulted - s/p trigger point injections 03/27. - placed on medrol dose pack. Planning to arrange for TEA this upcoming week. Toradol avaialble as weel Continue heating pad, baclofen. Topical voltaren/lidocaine patch Does have elevated ESR/CRP, no evidence for pericarditis on EKG. Cards consulted - see note. Could have underlying rheumatological condition - outpt f/u pending ongoing management If pain improved and controlled with ORAL medicatoins overnight, plan for dc 03/28 with OUTPATIENT PT. NO LIFTING MORE THAN 5 LB. Lyme testing also +, Doxy BID started and would plan for 28 day course given prior tx 21 days for +IgM/IgG on screening (2) Elevated troponin: Plan: Elevated troponin 30.9 on high sensitivity testing on admission. Suspect demand ischemia in the setting of pain.No CP reported.?post viral. Did have recent + COVID testing less than [address] chest WITHOUT evidence for aortic abnormality EKG w/o acute ischemic findings, and repeat troponin trended DOWN --> 19.0 Telemetry with NSR 80s, occasional PAC She has not had any anterior chest pain, pain is all midline spine in her low back -- however see above, did obtain CT chest given recent COVId/elevated ddimer -- NEGATIVE ECHO obtained for completeness given family hx hypertrophic cardiomyopathy --> ECHO w/ normal LV size and function, EF 60-65%. RV is normal in size/function. Mild MR. RVSP is normal TRACE noncircumferential pericardial effusion (maximum depth few millimeters). NOT hemodynamically significant Lyme + as above Repeat trop this morning for reports of discomfort but more MSK related. Trop was 27 but BP significantly elevated w/ pain and suspect demand. Cards consulted - see note. NOT felt cardiac in nature. NSR on telemetry (3) Positive Lyme disease serology: Plan: positive testing despite prior treatment, however both IgG/IgM positive and discussed w/ supervising provider. She did complete 21 day course for prior + testing on tick sent last year after removal started doxy 100mg BID, plan for 28 day course, follow up PCP ?contributing to current presentation Did add anaplasmosis/babesia smear to eval for any co-infection HTN - Chronic, SIGNIFICANT ELEVATIONS WITH PAIN Hydralazine IV made available BP on repeat 127/80 w/ improvement in pain control Remains on losartan Monitor for any needs for adjustment but cautious in lite of elevations 2nd to suspected ongoing pain control HLD - Continues atorvastatin. CK not elevated Asthma: Recent rx for prednisone for +COVID as above and back following Ddimer +, Ct NEG for PE Had completed prednisone 40mg on 03/26 however pain management recs for medrol dose pack -- has been ordered 97% on RA, lungs CLEAR on EXAM, no wheezing Plan DVT proph: Lovenox SQ while inpatient ongoing inpatient stay to ensure stable on PO pain control overnight. s/p trigger point injections and plans for outpatient pain management f/u this week for possible TEA (Ms Rodriguez is [facility] 's aunt) Admission and Anticipated Discharge Date Admission Date: March 25, 2024 Supervising Physician Co-Signing Physician Notes The patient was not seen by me. The chart was reviewed. Case discussed with JEYSON Myers. Agree with assessment and plan Subjective Evaluated this afternoon, sitting up in bed, daughter in room. Pain better controlled than this morning. Was seen by pain management who performed trigger point injections and plan for possible TEA this upcoming week. Would like medrol dose haris as well which has been ordered. Discussed and will monitor overnight to ensure staying stable given ongoing issues and patient agreeable. Patient continuing on bowel regimen, did have BM yesterday w/ relief. Heating pad continues. Seen by cardiology and NOT felt to have pericarditis, could be from lyme (or underlying RA condition). Hopeful dc in AM. Physical Exam Physical Exam: General: 68 yo female, sitting in bed upon arrival, NAD, daughter in room HEENT: head atraumatic, normocephalic, mmm, trachea midline Resp: even/unlabored, no w/c/r, on room air CV: RRR, no significant mrg, no pitting edema/calf tenderness GI +BS, soft, less distension, nontender MSK/Neuro:+tenderness to thoracic spine/paraspinal muscle, significant muscle tightness on the R>L. No LE weakness, NVI, pulses present Extremities: Moving all extremities equally. Car Inspector strength, hip flexion, ankle dorsiflexion/plantarflexion are 5/5 and symmetrical. No sensory deficits Psych: AOx3, cooperative with exam Results & Data Results & Data Vital Signs (Past 12 Hours) Vital Signs Temp Pulse Pulse Pulse Resp BP BP 03/27/24 07:08 74 03/27/24 06:00 68 210/101 H 03/27/24 03:00 36.7 C 71 17 176/84 H 03/27/24 00:00 70 03/26/24 22:59 36.8 C 82 16 145/77 H Pulse Ox O2 Del Method 03/27/24 07:08 03/27/24 06:00 03/27/24 03:00 97 Room Air 03/27/24 00:00 03/26/24 22:59 96 Room Air Laboratory Results 03/27/24 Range/Units 09:20 WBC 10.24 (4.8-10.8) K/ul RBC 4.97 (4.20-5.40) M/uL Hgb 13.2 (12.0-16.0) g/dl Hct 40.0 (37.0-47.0) % MCV 80.5 (80.0-100.0) fL MCH 26.6 (25.0-34.0) pg MCHC 33.0 (32.0-36.0) g/dL RDW Std Deviation 42.4 (36.4-46.3) fL RDW Coeff of [place] 14.5 (11.5-14.5) % Plt Count 446 H (130-400) K/uL MPV 9.1 L (9.4-12.4) fL Immature Gran % (Auto) 1.2 % Neut % (Auto) 58.0 % Lymph % (Auto) 31.6 % [place] % (Auto) 7.8 % Eos % (Auto) 0.8 % Baso % (Auto) 0.6 % Neut # (Auto) 5.94 (1.40-6.50) K/uL Lymph # (Auto) 3.24 (1.20-3.40) K/uL [place] # (Auto) 0.80 H (0.11-0.59) K/uL Eos # (Auto) 0.08 (0.00-0.50) K/uL Baso # (Auto) 0.06 (0.00-0.20) K/uL Immature Gran # (Auto) 0.12 (0.01-0.20) K/uL ESR 64 H (0-30) mm/hr Sodium 136 (136-145) mmol/L Potassium 3.9 (3.5-5.1) mmol/L Chloride 99 (98-107) mmol/L Carbon Dioxide 28 (21-32) mmol/L Anion Gap 9 (3-11) BUN 23 (6-23) mg/dl Creatinine 0.84 (0.6-1.2) mg/dl Est Cr Clr Drug Dosing 57.0 ml/min Est GFR ( Amer) 82.2 ml/min Est GFR (Non-Af Amer) 70.9 ml/min BUN/Creatinine Ratio 27.4 H (10-20) Glucose 121 H (70-99(Fasting)) mg/dl Calcium 9.3 (8.6-10.3) mg/dl Total Bilirubin 0.5 (0.2-1.0) mg/dl AST 29 (13-39) U/L ALT 35 (7-52) U/L Alkaline Phosphatase 112 H (34-104) U/L Troponin I High Sens 27.1 H (0-14) pg/ml C-Reactive Protein 3.14 H (0-0.5) mg/dl Total Protein 7.0 (6.0-8.3) gm/dl Albumin 3.7 (3.4-5.0) gm/dl Globulin 3.3 (2.5-4.0) gm/dl Albumin/Globulin Ratio 1.1 (0.9-2) Lipase 71 (11-82) U/L Diagnostic Findings Chest X-Ray 03/27/24 09:49 XR chest 1V portable HISTORY: Atypical chest pain COMPARISON: Chest 11/23/2015. FINDINGS: The lungs are clear. Cardiac silhouette is normal in size. No pleural effusions. No pneumothorax. IMPRESSION: No acute process. ACT 112: Negative or not required by law. Electronically signed by: Anand Figueroa M.D. 03/27/2024 12:53 PM PG Care Time/CCT Total # of Minutes Spent Total Time Spent with Patient: Total time spent is greater than 50% in coordination of care (as documented) at patient's floor/unit and/or counseling patient: Coding Level of Care Code 54177 SUB INP/OBS CARE 3/50MIN Diagnoses Back pain M54.9 Elevated troponin R79.89 Positive Lyme disease serology R76.8
[2024-03-27] MEDS: hydrALAZINE HCL 20 MG/ML VIAL IV STA (07:58)
[2024-03-27] MEDS: LORazepam 0.5 MG in SYRINGE 0.25 ML IV STA (08:05)
[2024-03-27] MEDS: MoRPHine SULFATE 2 MG/ML CARP IV STA (09:34)
[2024-03-27 09:38] LABS: Basophils # (auto) 0.06 K/uL (0.00-0.20); Basophils % (auto) 0.6 %; Eosinophils # (auto) 0.08 K/uL (0.00-0.50); Eosinophils % (auto) 0.8 %; Hemoglobin 13.2 g/dl (12.0-16.0); Immature Granulocytes # (auto) 0.12 K/uL (0.01-0.20); Immature Granulocytes % (auto) 1.2 %; Lymphocytes # (auto) 3.24 K/uL (1.20-3.40); Lymphocytes % (auto) 31.6 %; Mean Corpuscular Hemoglobin 26.6 pg (25.0-34.0); Mean Corpuscular Volume 80.5 fL (80.0-100.0); Mean Platelet Volume 9.1 fL (9.4-12.4); Monocytes % (auto) 7.8 %; Neutrophils # (auto) 5.94 K/uL (1.40-6.50); Platelet Count 446 K/uL (130-400); RDW Coefficient of Variation 14.5 % (11.5-14.5); RDW Standard Deviation 42.4 fL (36.4-46.3); Red Blood Count 4.97 M/uL (4.20-5.40); White Blood Count 10.24 K/ul (4.8-10.8)
[2024-03-27 09:56] LABS: Albumin Globulin Ratio 1.1 (0.9-2); Albumin Level 3.7 gm/dl (3.4-5.0); BUN Creatinine Ratio 27.4 (10-20); Bilirubin,Total 0.5 mg/dl (0.2-1.0); Calcium 9.3 mg/dl (8.6-10.3); Est GFR (African American) 82.2 ml/min; Est GFR (Non-African American) 70.9 ml/min; Globulin 3.3 gm/dl (2.5-4.0); Potassium 3.9 mmol/L (3.5-5.1)
[2024-03-27 10:39] LABS: C Reactive Protein 3.14 mg/dl (0-0.5)
[2024-03-27 10:47] LABS: Troponin I High Sensitivity 27.1 pg/ml (0-14)
--- NOTE | 2024-03-27 10:52 | Electrocardiogram Report ---
Test Reason : Blood Pressure : */* mmHG Vent. Rate : 67 BPM Atrial Rate : 67 BPM P-R Int : 142 ms QRS Dur : 84 ms QT Int : 374 ms P-R-T Axes : 42 29 35 degrees QTcB Int : 395 ms Normal sinus rhythm Normal ECG When compared with ECG of 23-Mar-2024 13:35, No significant change Confirmed by Gregory Green ([id number]) on 03/27/2024 10:52:19 AM Referred By: REFERRED SELF Confirmed By: Gregory Green
--- NOTE | 2024-03-27 12:54 | XRay Report ---
XR chest 1V portable HISTORY: Atypical chest pain COMPARISON: Chest 11/23/2015. FINDINGS: The lungs are clear. Cardiac silhouette is normal in size. No pleural effusions. No pneumot horax. IMPRESSION: No acute process. ACT 112: Negative or not required by law. Electronically signed by: Anand Figueroa M.D. 03/27/2024 12:53 PM
--- NOTE | 2024-03-27 13:21 | Cardiology Consultation ---
Date of Consultation March 27, 2024 Assessment & Plan (1) Back pain: (2) Pericardial effusion: (3) Elevated troponin: Plan 68-year-old woman with back pain (which seems to be mechanical/musculoskeletal based on history) who was incidentally noted to have a trivial pericardial effusion, mildly elevated but flat troponin curve, and elevated inflammatory markers. The waxing and waning nature of her back pain, lack of response to corticosteroids, lack of positional component, and the presence of tenderness on musculoskeletal exam all weigh against her symptoms being due to pericarditis. Most likely, her trivial pericardial effusion is a residual finding post COVID and has no clinical implications. Etiology of elevated inflammatory markers is unclear, patient is afebrile with normal white count which suggests the absence of a bacterial infection. No systemic symptoms to suggest ongoing viral infection, markers could remain elevated post COVID or could represent a noninfectious phenomenon such as a rheumatologic condition. Minor but flat troponin elevation is nonspecific, likely response to adrenergic stimuli (pain, hypertension secondary to pain) and patient with some probable underlying CAD (suggested on chest CT). No anginal type symptoms, ECG changes, or other evidence to suggest clinically significant myocardial ischemia. No active cardiac issues, will sign off. Please contact if change in the character of her symptoms. History of Present Illness Reason for Consultation: recent covid, ?pericarditis, elevated ESR/CRP Requesting Physician: Chong Wang MD Attending Physician: Chong Wang MD History of Present Illness 68-year-old woman with no prior cardiac history admitted 03/23/2024 with back pain, noted to have elevated inflammatory markers and small pericardial effusion, raising possibility of pericarditis. Past medical history: HTN, exercise-induced asthma, GERD. Several months ago she had Lyme disease. Earlier this month she had COVID. One week prior to admission she was lifting a railroad tie, no immediate pain but later that evening she noted mid upper back discomfort which increased to the point of becoming severe. No chest pain and no fever, chills, dyspnea, diaphoresis, or associated symptoms. She could not find a comfortable position to sleep in, but did not note any improvement in pain when sitting up or worsening of pain when lying down. She did note some discomfort on deep inspiration, but the pain did not have a specific pleuritic character. There was some change in the level of discomfort with movement of her arms or torso. Also, since onset of pain it has waxed and waned, never completely resolving, but at times becoming abruptly much more severe. She received cyclobenzaprine and prednisone without significant improvement in her symptoms. Pain persists to present, moderate currently. She noted that initially there was tenderness mid back, currently she has only mild tenderness which is not midline (periscapular region just lateral to the midline). At the time of my evaluation, she had no chest pain, dyspnea, or palpitations. Only somatic complaint is persistent back discomfort. Allergies Allergy/AdvReac Type Severity Reaction Status Date / Time No Known Drug Allergies Allergy Verified 03/19/24 14:03 [place] extract Allergy Verified 03/19/24 14:03 Home Medications Medication Instructions Recorded Confirmed Type multivitamin 1 tab PO QAM 10/08/18 03/23/24 History atorvastatin 40 mg tablet 40 mg PO DAILY #90 tabs 05/07/23 03/23/24 Rx losartan 50 mg tablet 50 mg PO DAILY #90 tabs 05/07/23 03/23/24 Rx albuterol sulfate 90 mcg/actuation See Rx Instructions .Route 11/22/23 03/23/24 Rx aerosol inhaler (Ventolin HFA) .COMPLEX #18 grams benzonatate 200 mg capsule 200 mg PO TID PRN cough #20 caps 03/09/24 03/23/24 Rx prednisone 20 mg tablet 40 mg (2 x 20 mg) PO DAILY #14 tabs 03/19/24 03/23/24 Rx cyclobenzaprine 5 mg tablet 5 - 10 mg PO TID PRN muscle spasm 03/23/24 03/23/24 History lidocaine 5 % topical patch 1 patch transdermal QAM #15 ea 03/24/24 Rx baclofen 20 mg tablet 20 mg PO TID #30 tabs 03/26/24 Rx doxycycline hyclate 100 mg capsule 100 mg PO BID 25 days #50 caps 03/26/24 Rx Patient History Medical History (Updated 03/27/24 @ 13:15 by Gregory Green MD) Cervical radiculopathy Fluid retention Surgical History History of total abdominal hysterectomy and bilateral salpingo-oophorectomy History of bilateral tubal ligation History of dilatation and curettage History of craniotomy depressed skull fx--repair at 2yrs old History of elbow surgery right History of hand surgery left thumb removed part of bone History of colonoscopy History of wisdom tooth extraction Family History Mother Family history of diabetes mellitus Grandmother (Maternal) Family history of diabetes mellitus Myocardial infarction Other No family history of adverse response to anesthesia Denies family history of Ovarian cancer Prostate cancer Breast cancer Colorectal cancer Social History Smoking Status: Never smoker Second Hand Exposure: No; Do You Dip or Chew Tobacco: No; Tobacco Cessation Education Requested by Patient: No Hx Alcohol Use: No Hx Substance Use: No Preferred Language: [place] Communication Ability: Effective Hospital Medical Biller Required: No Beliefs That Will Affect Care: None marital status: / Current Living Situation: Alone current occupational status: retired How many Children do You have: 3 Other Information That Helps Us Care for You: Yes Feels Safe at Home: Yes Safety Concerns: Feels Safe At This Time Childhood Exposure to Second-Hand Smoke: No Diet: regular caffeine: Yes (tea) Dental Care, Regularly: Yes Physical Activity Frequency: Daily Seatbelt Use: always Sunscreen Use: Yes Assistive Devices: None Physical Exam Physical Exam: Adult white female lying quietly, no obvious distress. Afebrile. BP normotensive. Pulse 68 bpm and regular. Respirations 18 unlabored. Skin: no ecchymoses or generalized lesions. HEENT: unremarkable. Neck: JVP at the clavicle at 90 degrees, no carotid bruits. Back: Mild tenderness on palpation right greater than left periscapular muscles, no midline tenderness. Lungs: clear. Cardiac: regular rhythm, normal S1-2, no murmur. No rub. Abdomen: benign. Extremities: no edema, pulses intact. Neurologic: normal affect and conversation, nonfocal. Results & Data Laboratory Results Troponin values 30, 19, and 27. C-reactive protein 3.14. Sed rate 64. Diagnostic Findings Repeat ECG today showed sinus rhythm at 67 bpm and was unremarkable. ECG on admission showed sinus rhythm at 72 bpm and was completely unremarkable. Chest and thoracic spine CTs showed no acute abnormalities. Mild atherosclerotic change in the aorta and coronary arteries noted. Echocardiogram showed EF 60 to 65% with normal wall motion, mild mitral regurgitation, normal RVSP, trace noncircumferential pericardial effusion (maximum depth 2 mm), not hemodynamically significant. PG Care Time/CCT Total # of Minutes Spent Total Time Spent with Patient: Total time spent is greater than 50% in coordination of care (as documented) at patient's floor/unit and/or counseling patient: Coding Level of Care Code 62667 IN/OBS CONSULT LVL 3,45M Diagnoses Back pain M54.9 Pericardial effusion I31.39 Elevated troponin R79.89
--- NOTE | 2024-03-27 13:51 | Pain Management Consultation ---
Date of Consultation March 27, 2024 Assessment & Plan (1) Myofascial pain: (2) Radicular pain of thoracic region: (3) Intervertebral thoracic disc disorder: Plan 1. Patient with acute onset of left-sided thoracic back pain with myofascial component and likely underlying relationship to the left-sided paracentral focal disc protrusion at T7-8. Recommend a trial of trigger point injections at today's visit and she was agreeable. Refer to procedure note below. 2. Will resume oral steroids with a Medrol Dosepak after discussion with hospitalist team 3. Potentially consider scheduled Toradol once cleared by cardiology 4. Limited utilization of opiates were recommended, but morphine appears to have been most effective at this time with her severe nighttime pain 5. Will tentatively plan for thoracic TEA in the next 1-2 weeks in the outpatient setting with any persistent complaints at T7-8 with a left-sided paramedian approach 6. Will monitor through the weekend and reassess Saturday morning if patient remains hospitalized to determine plan for TEA TRIGGER POINT INJECTION Diagnosis: Myofascial pain with spasm Medications Used: Ropivacaine 0.5% 7 ml Kenalog 1 ml (40 mg/1ml) Ketorolac 2 ml (30 mg/1ml) Side/Level injected: Left mid-lower thoracic paravertebral x 3, left latissimus dorsi x 2, left upper lumbar paravertebral x 1, right mid-lower thoracic x 3 Prior to starting, the Patients diagnosis and the procedure were reviewed with the patient in detail. Possible risks and complications including infection, bleeding, damage to surrounding structures and increased pain were discussed. Alternative therapies were also reviewed. Patients questions were answered and they agreed to proceed. Informed consent was obtained. Allergies and medication list was reviewed. The patient was brought to the procedure room and placed in prone position. Immediately prior to starting the procedure, a ``time out was conducted with the staff and the patient where the patient was identified, proposed procedure was verified, consent was reviewed and the proper site for the planned procedure was identified. Patient was not given any intravenous sedation and constant verbal contact was maintained throughout the procedure. On examination, no signs of skin breakdown or infection were noted at the injection site. The site was cleansed with ChloraPrep. After the application of either chloraprep, duraprep, and/or betadine (depending on patient's allergy status), three minutes time elapsed prior to the start of the procedure to reduce risk of fire. Palpation over the site produced patients typical pain. Using an 1.5 inch 25-gauge needle, the above muscles were injected in similar fashion after negative aspiration for blood with 1 mL of a combination of 7 mL of 0.5% ropivacaine-MPF containing 40 mg of Kenalog (1 ml) and 60 mg of ketorolac (2 ml) without complication. Needle was withdrawn and hemostasis noted. Band-Aid was applied where needed. Patient tolerated the procedure uneventfully without complications. Patient was discharged home with standard discharge instructions. History of Present Illness Reason for Consultation: Intractable left sided thoracic back pain Requesting Physician: Cindy Tavares PA-C Attending Physician: Chong Wang MD History of Present Illness Mrs. [place] is a 68-year-old white female who was admitted on 03/23/2024 due to intractable left-sided thoracic back pain which has been fairly persistent since that time. 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 She reports the railroad tie was heavy but denied any acute pain at the time of the left. She reported onset that evening and progressive worsening over the following few days. Patient reports the pain is left-sided in the mid thoracic region traveling towards the posterior axillary line. She describes the pain as aching and episodically sharp and spasming/stabbing in characteristic. She reports her worst time is early in the morning around 3 AM when she will develop the severe pain. This seems to occur with her initial movement out of bed. Patient was also found to be Lyme positive upon this admission initiated on doxycycline. She further reports a history of COVID diagnosis approximately 2 weeks ago. She has had some general lethargy/fatigue complaints. She has been started on doxycycline upon this admission. She was evaluated by her PCP last week due to the back pain and initiated on prednisone taper and muscle relaxers with minimal improvement in complaints. Patient denies pain with deep breathing, coughing or sneezing. She denies being short of breath. Patient rates her pain a 3/10 at its best and 9/10 at its worst. She did find relief from IV morphine last evening without notable side effects. She has been experiencing more constipation upon this admission due to use of the opiates. She further believes that titration of baclofen to 20 mg 3 times daily has been moderately helpful. She denies any lumbosacral pain or lumbar radicular pattern to her pain complaints. Patient denies weakness in the lower extremity, foot drop or episodes of falling. She denies bowel/bladder incontinence or saddle anesthesia. Patient has no further constitutional complaints. Plan of care discussed with Dr. Winnie Álvarez. Pain Assessment Full Body Front + Back: 2 1. Left greater than right-sided mid thoracic paravertebral with some radiation towards the left flank Pain scale - at its best (0-10): 3 Pain scale - at its worst (0-10): 9 Allergies Allergy/AdvReac Type Severity Reaction Status Date / Time No Known Drug Allergies Allergy Verified 03/19/24 14:03 poison [place] extract Allergy Verified 03/19/24 14:03 Home Medications Medication Instructions Recorded Confirmed Type multivitamin 1 tab PO QAM 10/08/18 03/23/24 History atorvastatin 40 mg tablet 40 mg PO DAILY #90 tabs 05/07/23 03/23/24 Rx losartan 50 mg tablet 50 mg PO DAILY #90 tabs 05/07/23 03/23/24 Rx albuterol sulfate 90 mcg/actuation See Rx Instructions .Route 11/22/23 03/23/24 Rx aerosol inhaler (Ventolin HFA) .COMPLEX #18 grams benzonatate 200 mg capsule 200 mg PO TID PRN cough #20 caps 03/09/24 03/23/24 Rx prednisone 20 mg tablet 40 mg (2 x 20 mg) PO DAILY #14 tabs 03/19/24 03/23/24 Rx cyclobenzaprine 5 mg tablet 5 - 10 mg PO TID PRN muscle spasm 03/23/24 03/23/24 History lidocaine 5 % topical patch 1 patch transdermal QAM #15 ea 03/24/24 Rx baclofen 20 mg tablet 20 mg PO TID #30 tabs 03/26/24 Rx doxycycline hyclate 100 mg capsule 100 mg PO BID 25 days #50 caps 03/26/24 Rx Pain History Pain Intensity Pain scale - at its best (0-10): 3 Pain scale - at its worst (0-10): 9 Patient History Medical History (Updated 03/27/24 @ 13:55 by Navarro Xie PA-C) Cervical radiculopathy Fluid retention Surgical History History of total abdominal hysterectomy and bilateral salpingo-oophorectomy History of bilateral tubal ligation History of dilatation and curettage History of craniotomy depressed skull fx--repair at 2yrs old History of elbow surgery right History of hand surgery left thumb removed part of bone History of colonoscopy History of wisdom tooth extraction Family History Mother Family history of diabetes mellitus Grandmother (Maternal) Family history of diabetes mellitus Myocardial infarction Other No family history of adverse response to anesthesia Denies family history of Ovarian cancer Prostate cancer Breast cancer Colorectal cancer Social History Smoking Status: Never smoker Second Hand Exposure: No; Do You Dip or Chew Tobacco: No; Tobacco Cessation Education Requested by Patient: No Hx Alcohol Use: No Hx Substance Use: No Preferred Language: [place] Leonean Communication Ability: Effective Bilingual Customer Service Specialist Required: No Beliefs That Will Affect Care: None marital status: / Current Living Situation: Alone current occupational status: retired How many Children do You have: 3 Other Information That Helps Us Care for You: Yes Feels Safe at Home: Yes Safety Concerns: Feels Safe At This Time Childhood Exposure to Second-Hand Smoke: No Diet: regular caffeine: Yes (tea) Dental Care, Regularly: Yes Physical Activity Frequency: Daily Seatbelt Use: always Sunscreen Use: Yes Assistive Devices: None Physical Exam 2 Physical Exam: General: Patient sitting quietly in exam room in no acute distress. Speech and thought process appropriate. Mood and affect appropriate. Cognition intact. Patient accompanied by her daughter. Patient intermittently weepy. Head: Normocephalic and atraumatic. ENT: No evidence of nasal or oral mucosal lesions. Mucous membranes are moist. Eyes: Pupils equal round reactive to light. Neck: Supple without adenopathy and full range of motion. Chest: Nontender to palpation of the costosternal junction. Nontender with AP/lateral compression of the chest wall. There is no focal rib or intercostal space tenderness. Abdomen: Soft and nondistended. No organomegaly. Bowel sounds active. Thoracic spine: No visible abnormalities upon inspection. She is nontender over the midline to palpation or percussion. There is no focal thoracic facet joint tenderness. Patient is tender in the mid-lower thoracic paravertebral and upper lumbar paravertebral musculature left greater than right-sided. There is scattered spasm and a few myoneural trigger points. There is limited involvement in the left latissimus musculature. She has increased left-sided pain with sidebending towards the left side. Lower extremities: SLR negative bilaterally. Strength testing 5/5 and equal. Sensation intact without deficit. Neurologic: Cranial nerves grossly intact. Ambulatory function not witnessed. Results (Pain Clinic) Diagnostic Review MRI Findings: [place] [phone] Magnetic Resonance Report Patient: NILO SHELD[place] Admit Date: 03/23/24 MR#: [id number] Address1: [address] Acct ID:[id number] Address2: Date: 1955 [facility] Zip: [place] [address] Age: 68 Location: Sex: F Room/Bed: [facility] Att Phy: Chong Wang MD Diagnosis: BACK PAIN, TROP [place] Phy: Cheri Taylor CRNP Service Date: 03/25/24 Fam Phy: Interpreting Phy: Anand Figueroa MDAdmit Phy: Lito Lundberg MD Ordering Phy: Cindy Tavares PA-C cc: ~ THORACIC SPINE MRI HISTORY: injury, uncontrolled/worsened back pain TECHNIQUE: Multiplanar multisequence MRI of the thoracic spine was performed without the use of contrast. COMPARISON: CT thoracic spine 03/23/2024. FINDINGS: Localizer images demonstrate a 3.4 cm defect within the right parietal lobe which could be due to an old infarct or old postoperative change. This is only partially imaged on this study. No acute fractures of fixation within the thoracic spine. A T3 vertebral body hemangioma is noted. No suspicious osseous lesions. Moderate disc space narrowing at T1-T2 with a broad-based posterior disc bulge asymmetric to the right. No significant central canal narrowing. There is moderate to severe bilateral neural foraminal narrowing. Broad-based posterior disc bulge at T2-T3 without significant central canal or neural foraminal narrowing. There is a 3 mm left paracentral focal disc protrusion at T7-T8 without significant central canal or neural foraminal narrowing. Nondisplaced. The mid thoracic spine is noted. There are severe disc space narrowing at L5-S1 with a broad-based posterior disc bulge. No significant central canal narrowing at this level. The conus terminates at the T12-L1 disc space level. The thoracic spinal cord is normal and course, caliber, and signal intensity. Paravertebral soft tissues are unremarkable. No epidural fluid collections. Degenerative changes within the cervical spine are noted. IMPRESSION: 1. No fracture or subluxation within the thoracic spine. 2. Degenerative changes as described above most pronounced at the T1-T2 level. This demonstrates moderate to severe bilateral neural foraminal narrowing. 3. No significant central canal narrowing within the thoracic spine. 4. Normal signal intensity within the thoracic spinal cord. ACT 112: Negative or not required by law. Electronically signed by: Anand Figueroa M.D. 03/25/2024 11:28 AM Dictated: 03/25/24 1119 Transcribed: 03/25/[address] Findings: [place], [place] [phone] CT Scan Report Patient: NILO SHELDON Admit Date: 03/23/24 MR#: [id number] Address1: [address] Acct ID:[id number] Address2: Date: 1955 [facility] Zip: [place] [address] Age: 68 Location: ED Sex: F Room/Bed: Att Phy: Diagnosis: BACK SPASMS, NOT SLEEPING [place] Phy: Cheri Taylor CRNP Service Date: 03/23/24 [facility] Phy: Interpreting Phy: Anand Figueroa MDAdmit Phy: Ordering Phy: Norm Castle PA-C cc: ~ CT thoracic spine w con CT DOSE: CLINICAL HISTORY: Mid/upper central back pain s/p heavy lifting TECHNIQUE: Multiaxial CT images of the thoracic spine were performed following the intravenous administration of contrast and reformatted in the sagittal and coronal planes A dose lowering technique was utilized adhering to the principles of ALARA. COMPARISON STUDY: None. FINDINGS: No fracture or subluxation within the thoracic spine. Moderate disc space narrowing at T1-T2. Mild disc space narrowing within the remaining upper to mid thoracic spine. Moderate to severe disc space narrowing at L1-L2. No significant central canal narrowing by CT technique. Paravertebral soft tissues are unremarkable. IMPRESSION: No fracture or subluxation within the thoracic spine. ACT 112: Negative or not required by law. [place] [phone] CT Scan Report Patient: NILO SHELDON Admit Date: 03/23/24 MR#: [id number] Address1: [address] Acct ID:[id number] Address2: Date: 1955 [facility] Zip: [place] [id number] Age: 68 Location: 2N Sex: F Room/Bed: N287 Att Phy: Chong Wang MD Diagnosis: BACK PAIN, TROP [place] Phy: Cheri Taylor CRNP Service Date: 03/25/24 Fam Phy: Interpreting Phy: Anand Figueroa MDAdmit Phy: Lito Lundberg MD Ordering Phy: Cindy Tavares PA-C cc: ~ CHEST CTA for PULMONARY ARTERIES CT DOSE: 421.3 mGy.cm HISTORY: Atypical chest pain. TECHNIQUE: Multiaxial CT images of the chest were performed following the intravenous administration of contrast to evaluate the pulmonary arteries. 3D/Maximal intensity projection images were also obtained. Sagittal and coronal reformations were also reviewed. A dose lowering technique was utilized adhering to the principles of ALARA. COMPARISON STUDY: Chest CT 03/23/2024. FINDINGS: Normal caliber thoracic aorta with no evidence for a dissection. The heart is normal in size. No pleural or pericardial effusions. Moderate coronary artery calcifications are noted. No filling defects within the pulmonary arteries to suggest a pulmonary embolus. No mediastinal or hilar lymphadenopathy. Calcified subcarinal and right hilar lymph nodes are noted. Normal esophagus. Limited views the upper abdomen demonstrate a normal liver, spleen, and adrenal glands. No acute fractures. The central airways are patent. No pneumothorax. No focal lung consolidations to suggest a pneumonia. Stable 3 mm nodule within the right lung apex on image 208. No evidence for pulmonary edema. Calcified granuloma within the right lower lobe. IMPRESSION: 1. No evidence for a pulmonary embolus. 2. No focal lung consolidations to suggest a pneumonia. 3. Moderate coronary artery calcifications. 4. Stable 3 mm nodule within the right lung apex. Please refer to below summary of Fleischner criteria recommendations for follow- up of incidental CT nodules (Toan Mendez, Guidelines for management of small pulmonary nodules detected on CT scans: A statement from the Fleischner Society, Radiology 237: [phone].) SOLID NODULES Solitary nodule size: <6 mm * Low risk patients: no follow-up needed * high risk patients: optional CT at 12 months Solitary nodule size: 6-8 mm * Low risk patients: follow-up at 6-12 months, then consider further follow-up at 18-24 months * high risk patients: initial follow-up CT at 6-12 months and then at 18-24 months if no change Solitary nodule size: >8 mm * either low or high risk patients - consider follow-up CT at 3 months, and/or CT-PET, and/or biopsy Multiple nodules size: <6 mm * Low risk patients: no routine follow-up * high risk patients: optional CT at 12 months Multiple nodules size: 6-8 mm * Low risk patients: follow-up at 3-6 months, then consider further follow-up at 18-24 months * high risk patients: follow-up at 3-6 months, then at 18-24 months if no change Multiple nodules size: >8 mm * Low risk patients: follow-up at 3-6 months, then consider further follow-up at 18-24 months * high risk patients: follow-up at 3-6 months, then at 18-24 months if no change Note: newly detected indeterminate nodule in persons 35 years of age or older. * Low risk patients: minimal or absent history of smoking and/or other known risk factors * high risk patients: history of smoking or of other known risk factors (e.g. first degree relative with lung cancer, or exposure to asbestos, radon, uranium) * if a nodule up to 8 mm is partly solid or is ground glass further follow-up is required after 24 months to exclude possible slow growing adenocarcinoma (JENNA) SUBSOLID NODULES Solitary pure ground-glass nodule * nodule size <6 mm - no CT follow-up required * nodule size >=6 mm - follow-up CT at 6-12 months, then every 2 years until 5 years Solitary part-solid nodule * nodule size <6 mm - no CT follow-up required * nodule size >=6 mm - follow-up CT at 3-6 months. If unchanged, and solid component remains <6 mm, then annual follow-up for 5 years Multiple subsolid nodules * nodule size <6 mm - follow-up CT at 3-6 months, consider further follow-up at 2 and 4 years if stable * nodule size >=6 mm - follow-up CT at 3-6 months, subsequent management based on the most suspicious nodule(s) ACT 112: Negative or not required by law. Electronically signed by: Anand Figueroa M.D. 03/25/2024 11:50 AM Dictated: 03/25/24 1145 Transcribed: 03/25/24 1145
[2024-03-27] MEDS ORDERED: methylPREDNISolone 4 MG TAB, 6 DAY TAPER PO SCH (14:00)
[2024-03-27] MEDS: methylPREDNISolone 4 MG TAB PO SCH ×2 (18:02→19:38)
[2024-03-27] MEDS: MoRPHine SULFATE 2 MG/ML CARP IV PRN (19:32)
[2024-03-28 04:38] LABS: Hematocrit (blood only) 43.6 % (37.0-47.0); Hemoglobin 13.9 g/dl (12.0-16.0); Mean Corpuscular Hemoglobin 26.7 pg (25.0-34.0); Mean Corpuscular Hgb Conc 31.9 g/dL (32.0-36.0); Mean Corpuscular Volume 83.8 fL (80.0-100.0); Mean Platelet Volume 9.2 fL (9.4-12.4); Platelet Count 486 K/uL (130-400); RDW Standard Deviation 42.6 fL (36.4-46.3); White Blood Count 14.17 K/ul (4.8-10.8)
[2024-03-28 04:43] LABS: Prothrombin Time 10.4 Seconds (9.0-12.0)
[2024-03-28] MEDS: OPTIRAY 320 125ml IV ONE (04:58)
[2024-03-28 05:16] LABS: Albumin Globulin Ratio 1.2 (0.9-2); Albumin Level 3.9 gm/dl (3.4-5.0); BUN Creatinine Ratio 22.6 (10-20); Bilirubin,Total 0.5 mg/dl (0.2-1.0); Calcium 9.6 mg/dl (8.6-10.3); Creatinine Clr Calc Pharmacy 45.2 ml/min; Est GFR (Non-African American) 53.5 ml/min; Globulin 3.3 gm/dl (2.5-4.0); Potassium 4.1 mmol/L (3.5-5.1); Total Protein 7.2 gm/dl (6.0-8.3)
[2024-03-28] MEDS ORDERED: STAT IV Infusion **Titration per Protocol STA ×2 (05:22→12:43)
[2024-03-28] MEDS ORDERED: PROPOFOL BOLUS FROM BAG IV PRN (05:22)
[2024-03-28] MEDS: PROPOFOL IV EMULSION 10 MG/ML 100 ML VIAL IV ONE (05:31)
[2024-03-28] MEDS: MIDAZOLAM HCL 1 MG/ML 2ML VIAL IV STA (05:31)
[2024-03-28] MEDS: MIDAZOLAM HCL 1 MG/ML 2ML VIAL ONE (05:31)
[2024-03-28] MEDS: VECURONIUM BROMIDE 10 MG VIAL IV STA (05:31)
[2024-03-28] MEDS: VECURONIUM BROMIDE 10 MG VIAL IV ONE (05:31)
[2024-03-28 05:38] LABS: iSTAT Allen Test Pass; iSTAT Art Bld Gas pCO2 Correct 29 mmHg (35-46); iSTAT Art Bld Gas pH Corrected 7.486 (7.35-7.45); iSTAT Arterial Blood Gas HCO3 22 meg/L (19-24); iSTAT Arterial Blood Gas pCO2 29 mmHg (35-46); iSTAT Arterial Blood Gas pH 7.48 (7.35-7.45); iSTAT Arterial Blood Gas pO2 207 mmHg (80-95); iSTAT Arterial Blood Gas pO2 C 205; iSTAT Carbon Dioxide 23 mmol/L (24-31); iSTAT FiO2 40 %; iSTAT Hematocrit 38 % (37-47); iSTAT Hemoglobin 12.9 g/dl (12.0-16.0); iSTAT Site L Radial; iSTAT Sodium 129 mmol/L (135-144)
--- NOTE | 2024-03-28 05:45 | Communication Note ---
Date of Service: March 28, 2024 Patient found in bed unresponsive at approximately 0445. Code anna called. Upon arrival patient was not responsive to stimulus and was not regularly breathing or protecting airway. ICU VIOLETA Norm was at bedside, decision was promptly made to provide ventilatory support via bag mask. Examination revealed bilaterally dilated/fixed pupils, blood on tongue/lips, bowel incontinence and irregularly irregular rhythm. BP and pulse remained stable w/ O2 saturations >94%. Patient noted to have presented for management of back pain and had been receiving narcotic medications for pain management. Last dose of Morphine 2 mg was at 7:30. Patient received Narcan x 2 without benefit. Patient noted to have recent COVID-19 infection 03/18/24. She has been receiving DVT Ppx since presentation. On presentation, patient's D-dimer was elevated, but CTA Chest was performed and negative. Noted to be in new onset Atrial Fibrillation on the mon itor, prior EKGs show NSR. Clinical presentation concerning for seizure vs stroke. Decision was made to proceed with STAT CT Head, CTA Head, and CTA Neck. Patient unable to protect her airway, thus ED Physician Dr. Wilkins was called to bedside to intubate the patient prior to transport. STAT CT Head concerning for acute stroke, STAT RAD pending. Telestroke consultation placed. [facility] neurology contacted. Patient transitioned to ICU. Resident Activity Tracking Resident Involvement: Resident Care Provided Care Provided: Adult Hospital Medicine
[2024-03-28] MEDS: MIDAZOLAM HCL 5 MG/ML 2ML VIAL IV STA (06:08)
[2024-03-28] MEDS: RAPID SEQUENCE INDUCTION BAG ONE (06:13)
[2024-03-28] MEDS: levETIRAcetam IV 1,500 MG in 0.9 % SODIUM CHLORIDE 100 ML IV ONE (06:14)
[2024-03-28] MEDS: propofoL 1,000 MG/100 ML VIAL IV SCH (06:14)
--- NOTE | 2024-03-28 06:15 | Critical Care Consultation ---
Date of Consultation March 28, 2024 Assessment & Plan (1) Altered mental status: Reason Critically Ill: 68-year-old female presents to the ICU following altered mental status and intubated for airway protection. Patient was previously undergoing treatment for Lyme disease and back pain. Prior to this she had no neurological symptoms and change in neurological status abrupt. 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 MRI brain with and without contrast pending. CTA of head and neck without acute findings but evidence of prior stroke. EEG negative. Appreciate neurology input. Patient with Lyme antibodies positive. Doubtful of Lyme encephalitis at this time. Possible seizure activity prior to intubation. Continue with Keppra. Back painMRI and CT spine as discussed in HPI. Hold muscle relaxers and and analgesics for now. Discontinue Medrol Dosepak. Cardiac - HLDstatin HTNhold losartan for now. Patient has remained hypertensive likely pain Contributing. Remains normotensive on sedation Atrial fibrillation?Patient with irregular tachycardia noted on monitor but converted spontaneously to sinus rhythm prior to EKG. Suspect episode of A-fib RVR, possibly stress response during seizure activity. No prior history. Continue monitor on telemetry for now Respiratory - Mechanically ventilated Patient emergently intubated for airway protection With altered mental status and appeared to be agonal breathing. ABG with no significant acidosis or hypoxia. Chest x-ray with a appropriate placement of ET tube. Continue with mechanical ventilation for airway support while appropriate, and wean vent as tolerated. Continuous monitoring on pulse ox and end-tidal CO2. GI - N.p.o. GERDFamotidine RENAL/LYTES - Creatinine within normal limits. Monitor routine BMPs and replete electrolytes as indicated. Mild hyponatremia, recheck now. High anion gap metabolic acidosissuspect elevated lactate as patient's presentation suspicious for seizure activity. Currently lactic acid pending. ABG without significant acidosis postintubation. Will monitor for now - Foleystrict I's and O's ENDO - No history of diabetes or thyroid disease. ICU hyperglycemic protocol HEME - H&H stable, monitor routine CBC ID - Positive Lyme antibody Continue doxycycline for the time being. LINES/IV ACCESS - Peripheral IVs DVT PROPHYLAXIS - SCDs, Lovenox Discussed on multidisciplinary rounds and with overnight ICU VIOLETA. Also discussed with neurologist at bedside. I have personally spent 49 minutes of critical care time in the direct management of this patient. This is a life/limb threatening event. This includes time spent evaluating patient, direct bedside care, chart review, placing orders, interpretation of diagnostic studies, discussion with consultants, patient, and family members, as well as other required patient management activities. This time is exclusive of all separately billable procedures, and teaching time and separate from and in addition to any other critical care service time. Thank you for allowing us to participate in the care of this patient. Please refer to my attending physician's documentation for any further recommendations. (2) Intervertebral thoracic disc disorder: (3) Positive Lyme disease serology: (4) Hypertension: (5) Hypercholesterolemia: (6) GERD (gastroesophageal reflux disease): History of Present Illness Attending Physician: Chong Wang MD History of Present Illness Patient is a 68-year-old female with past medical history of HTN, GERD, HLD, Who was admitted to the hospital on 03/23 with severe back pain after lifting a railroad tie. She was undergoing treatment with hydromorphone, lidocaine, Toradol, And glucocorticoids. She had underwent CT spine and Thoracic spine MRI that showed no fracture or subluxation, degenerative changes. Patient was evaluated by Ortho as well. She was noted to be hypertensive overnight. She had morphine around 1930, and no other analgesics documented since then. I responded to a code purple in which the patient was altered mental status, unresponsive and did not appear to be protecting her airway with agonal breathing. Neurological exam noted the patient to have doll's eyes in appearance with dilated pupils. She was given Narcan x 2 with no response. Patient was emergently intubated and she was taken for CT head, and CTA head and neck. Of note, patient was noted to have what appeared to be A-fib RVR on monitor with irregular rate in the 140s to 150s. [facility] neurology telemetry consult was also performed and images were reviewed with the neurologist. Old stroke was noted in the occipital/parietal right hemisphere, with no acute findings noted on the CT head Noncon and CTA head and neck. Patient's lab work did reveal Metabolic acidosis which was not present on previous lab work with high anion gap metabolic acidosis. Suspect elevated lactate which would be consistent with seizure activity, although patient has no prior history of seizures. She is currently intubated on propofol drip, and was given Versed for induction. Will load with Keppra and obtain EEG. Is also worth noting that she is being treated for Lyme disease with doxycycline. Patient to remain in ICU for further management at this time. Allergies Allergy/AdvReac Type Severity Reaction Status Date / Time No Known Drug Allergies Allergy Verified 03/19/24 14:03 [place] extract Allergy Verified 03/19/24 14:03 Home Medications Medication Instructions Recorded Confirmed Type multivitamin 1 tab PO QAM 10/08/18 03/23/24 History atorvastatin 40 mg tablet 40 mg PO DAILY #90 tabs 05/07/23 03/23/24 Rx losartan 50 mg tablet 50 mg PO DAILY #90 tabs 05/07/23 03/23/24 Rx albuterol sulfate 90 mcg/actuation See Rx Instructions .Route 11/22/23 03/23/24 Rx aerosol inhaler (Ventolin HFA) .COMPLEX #18 grams benzonatate 200 mg capsule 200 mg PO TID PRN cough #20 caps 03/09/24 03/23/24 Rx prednisone 20 mg tablet 40 mg (2 x 20 mg) PO DAILY #14 tabs 03/19/24 03/23/24 Rx cyclobenzaprine 5 mg tablet 5 - 10 mg PO TID PRN muscle spasm 03/23/24 03/23/24 History lidocaine 5 % topical patch 1 patch transdermal QAM #15 ea 03/24/24 Rx baclofen 20 mg tablet 20 mg PO TID #30 tabs 03/26/24 Rx doxycycline hyclate 100 mg capsule 100 mg PO BID 25 days #50 caps 03/26/24 Rx Patient History Medical History (Updated 03/28/24 @ 10:21 by Kevin Thomas MD) Cervical radiculopathy Fluid retention Surgical History History of total abdominal hysterectomy and bilateral salpingo-oophorectomy History of bilateral tubal ligation History of dilatation and curettage History of craniotomy depressed skull fx--repair at 2yrs old History of elbow surgery right History of hand surgery left thumb removed part of bone History of colonoscopy History of wisdom tooth extraction Family History Mother Family history of diabetes mellitus Grandmother (Maternal) Family history of diabetes mellitus Myocardial infarction Other No family history of adverse response to anesthesia Denies family history of Ovarian cancer Prostate cancer Breast cancer Colorectal cancer Social History Smoking Status: Never smoker Second Hand Exposure: No; Do You Dip or Chew Tobacco: No; Hx Alcohol Use: No Hx Substance Use: No Preferred Language: Slovenian Communication Ability: Effective Crown Attacher Required: No Beliefs That Will Affect Care: None marital status: / Current Living Situation: Alone current occupational status: retired How many Children do You have: 3 Feels Safe at Home: Yes Childhood Exposure to Second-Hand Smoke: No Diet: regular caffeine: Yes (tea) Dental Care, Regularly: Yes Physical Activity Frequency: Daily Seatbelt Use: always Sunscreen Use: Yes Assistive Devices: None Review of Systems Review of Systems: Unobtainable due to cognitive status and Unobtainable due to endotracheal tube Physical Exam Constitutional: + frail appearing and + mechanically sandro tilated Eyes: PERRLA, conjunctiva normal ENMT: external ear and nose normal, oropharynx normal Neck: trachea midline, no thyromegaly Respiratory: normal respiratory effort, lungs clear to auscultation Cardiovascular: RRR, no murmur, no edema Heart Sounds: normal S1 and normal S2; no murmur Extremities: no edema Gastrointestinal (Abdomen): normal bowel sounds, soft, nontender, no hepatosplenomegaly Musculoskeletal: no cyanosis or clubbing, extremities motor strength 5/5 Skin: no rashes, warm and dry Neurologic: Unresponsive/altered mental status. Does localize to noxious stimuli bilaterally and appears to be moving all extremities equally.Pupils are equal and reactive, although patient does appear to have doll's eyes. Cough gag and corneals intact. Psychiatric: Unable to assess due to altered cognitive status Results & Data Results & Data Vital Signs (Past 12 Hours) Vital Signs Temp Pulse Pulse Resp BP Pulse Ox O2 Del Method 03/28/24 03:47 74 186/91 H 03/28/24 02:22 36.7 C 71 16 210/90 H 97 Room Air 03/27/24 23:14 36.7 C 70 18 198/87 H 97 Room Air 03/27/24 21:54 77 03/27/24 20:33 36.3 C L 78 16 183/91 H 97 Room Air Coding Level of Care Code 12258 CRITICAL CARE 1ST 30-74M Diagnoses Altered mental status R41.82 Intervertebral thoracic disc disorder M51.9 Positive Lyme disease serology R76.8 Primary hypertension I10 Hypertension type: primary hypertension Hypercholesterolemia E78.00 GERD (gastroesophageal reflux disease) K21.9 (4) Hypertension Hypertension type: primary hypertension Qualified Code(s): I10 - Essential (primary) hypertension
[2024-03-28] MEDS: methylPREDNISolone 4 MG TAB PO SCH (06:19)
--- NOTE | 2024-03-28 07:03 | XRay Report ---
SINGLE VIEW CHEST CLINICAL HISTORY: Respiratory failure. Intubation. FINDINGS: An AP, portable, supine chest radiograph is compared to study dated 03/27/2024 and correlate d with chest CT dated 03/25/2024. An endotracheal tube has been placed. The tip of the catheter projec ts approximately 2.5 cm above the elder. The cardiomediastinal silhouette is unremarkable. Calcified hilar nodes are similar to previous. The lungs and pleural spaces are otherwise clear. No pneumothor ax is seen. The skeletal structures are osteopenic. The bony thorax is grossly intact. IMPRESSION: 1. An endotracheal tube has been placed as above. 2. There is no airspace consolidation, pleural effusion, or pneumothorax. ACT 112: Negative or not required by law. Electronically signed by: Augie Agrawal M.D. 03/28/2024 7:01 AM
[2024-03-28 07:31] LABS: Amphetamines+Metham, Urine Neg (Neg); Barbiturates, Urine Neg (Neg); Benzodiazepine, Urine Pos (Neg); Cocaine, Urine Neg (Neg); Fentanyl, Urine Neg (Neg); MDMA (Ecstacy), Urine Neg (Neg); Marijuana, Urine Neg (Neg); Methadone, Urine Neg (Neg); Opiate, Urine Neg (Neg); Phencyclidine, Urine Neg (Neg)
[2024-03-28 07:31] LABS: Acetaminophen < 3 ug/ml (10-30); Salicylate < 3.0 mg/dl (3.0-30)
[2024-03-28 07:38] LABS: Thyroid Stimulating Hormone 1.589 uIu/ml (0.300-4.500)
--- NOTE | 2024-03-28 08:02 | CT Scan Report ---
Exam(s): CT HEAD Without Contrast EXAM: CT Head Without Intravenous Contrast CLINICAL HISTORY: Reason for exam: AMS. TECHNIQUE: Axial computed tomography images of the head/brain without intravenous contrast. CTDI is 71.02 mGy and DLP is 702.46 mGy-cm. Automated exposure control was utilized for the study. A dose lowering technique was utilized adhering to the principles of ALARA. COMPARISON: No relevant prior studies available. FINDINGS: Brain: There is a 3.7 cm focus of encephalomalacia in the right parietal lobe. No hemorrhage. No significant white matter disease. Ventricles: Unremarkable. No ventriculomegaly. Bones/joints: Unremarkable. No acute fracture. Soft tissues: Unremarkable. Sinuses: Unremarkable as visualized. No acute sinusitis. Mastoid air cells: Unremarkable as visualized. No mastoid effusion. IMPRESSION: No acute intracranial abnormality Electronically signed by: Edu Gallagher MD 03/28/24 08:01 AM
--- NOTE | 2024-03-28 08:09 | CT Scan Report ---
Exam(s): CTA HEAD With Contrast IV Amt: 119 ml opti 320 EXAM: CT Angiography Head With Intravenous Contrast CLINICAL HISTORY: Reason for exam: sls. TECHNIQUE: Axial computed tomographic angiography images of the head with intravenous contrast. CTDI is 12.7 mGy and DLP is 470.26 mGy-cm. Automated exposure control was utilized for the study. A dose lowering technique was utilized adhering to the principles of ALARA. MIP reconstructed images were created and reviewed. CONTRAST: Patient received 119 ml opti 320 of IV contrast COMPARISON: No relevant prior studies available. FINDINGS: Right internal carotid artery: No acute findings. Intracranial segment is patent with no significant stenosis. No aneurysm. Right anterior cerebral artery: Unremarkable. No occlusion or significant stenosis. No aneurysm. Right middle cerebral artery: Unremarkable. No occlusion or significant stenosis. No aneurysm. Right posterior cerebral artery: Unremarkable. No occlusion or significant stenosis. No aneurysm. Right vertebral artery: Unremarkable as visualized. Left internal carotid artery: No acute findings. Intracranial segment is patent with no significant stenosis. No aneurysm. Left anterior cerebral artery: Unremarkable. No occlusion or significant stenosis. No aneurysm. Left middle cerebral artery: Unremarkable. No occlusion or significant stenosis. No aneurysm. Left posterior cerebral artery: Unremarkable. No occlusion or significant stenosis. No aneurysm. Left vertebral artery: Unremarkable as visualized. Basilar artery: Unremarkable. No occlusion or significant stenosis. No aneurysm. IMPRESSION: Normal head CTA. Electronically signed by: Edu Gallagher MD 03/28/24 08:08 AM
--- NOTE | 2024-03-28 08:14 | CT Scan Report ---
Exam(s): CTA NECK With Contrast IV Amt: 119 ml opti 320 EXAM: CT Angiography Neck With Intravenous Contrast CLINICAL HISTORY: Reason for exam: sls. TECHNIQUE: Routine carotid CT angiography protocol was performed with intravenous contrast. NASCET criteria using the distal ICAs for comparison were used for evaluation of stenoses. CTDI is 12.7 mGy and DLP is 470.26 mGy-cm. Automated exposure control was utilized for the study. A dose lowering technique was utilized adhering to the principles of ALARA. MIP reconstructed images were created and reviewed. CONTRAST: Patient received 119 ml opti 320 of IV contrast COMPARISON: None. FINDINGS: VASCULATURE: Right common carotid artery: Mild to moderate atherosclerotic calcification seen at the bifurcation of the right common carotid artery.. 20% stenosis seen in the carotid bulb. Right internal carotid artery: Unremarkable. Extracranial segment is patent with no occlusion or significant stenosis. No dissection. Right external carotid artery: Unremarkable. No occlusion. Right vertebral artery: Unremarkable. No occlusion or significant stenosis. No dissection. Left common carotid artery: Moderate atherosclerotic calcification seen at the bifurcation of the left common carotid artery. 30% stenosis in the carotid bulb. Left internal carotid artery: Unremarkable. Extracranial segment is patent with no occlusion or significant stenosis. No dissection. Left external carotid artery: Unremarkable. No occlusion. Left vertebral artery: Unremarkable. No occlusion or significant stenosis. No dissection. NECK: Bones/joints: Unremarkable. No acute fracture. Soft tissues: Unremarkable. Lung apices: Clear. CAROTID STENOSIS REFERENCE USING NASCET CRITERIA: % ICA stenosis = (1 - narrowest ICA diameter/diameter of distal cervical ICA) x 100. Mild - <50% stenosis. Moderate - 50-69% stenosis. Severe - 70-94% stenosis. Near occlusion - 95-99% stenosis. Occluded - 100% stenosis. IMPRESSION: No evidence of hemodynamically significant carotid stenosis Electronically signed by: Edu Gallagher MD 03/28/24 08:13 AM
--- NOTE | 2024-03-28 08:21 | Neurology Consultation ---
Date of Consultation March 28, 2024 Assessment & Plan (1) Altered mental status: (2) Radicular pain of thoracic region: (3) Hypertension: (4) Positive Lyme disease serology: Plan This patient was admitted November 21 with upper thoracic spine pain likely sprain from lifting creating considerable pain requiring observation and pain management. This morning she was found "unresponsive" with blood around her lips and fecal incontinence. Certainly, she could have had a generalized seizure with postictal state. 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 I cannot exclude a stroke. Interestingly she has a positive Lyme test and a markedly elevated sedimentation rate and CRP. There is no other evidence of infection. I cannot exclude an active rheumatologic immunologic disease creating the elevations of these inflammatory marker. She has a history of hypertension, with significant elevations intermittently since admission. It was particularly elevated in the last 24 hours. I cannot exclude a hypertensive encephalopathy (PRES) which may have led to a seizure as well Recommendations: 1. EEG this morning 2. MRI of the brain with and without contrast 3. Further neurologic assessment and treatment recommendation will be done after these tests and after extubation/off propofol 4. I see no need for a lumbar puncture at this time. Overall, I spent a total of 90 minutes with this case including review of records, review of CT and MRI films, direct evaluation of the patient at bedside, report generation, and discussion of the case with RN at bedside as well as Dr Ng, GUILLERMO Mittal, and Augie Meeks, including differential diagnosis and treatment options. History of Present Illness Reason for Consultation: Patient is a 68-year-old, who I was asked to see at the quest of Dr. Wang, for neurologic consultation regarding acute episode of unresponsiveness (seizure versus stroke versus both) Requesting Physician: Dr. Wang Attending Physician: Chong Wang MD History of Present Illness This patient has a history of hypertension, dyslipidemia, GERD, and exercise- induced asthma. She was in her usual state of health when she had some issues with symptoms consistent with a viral URI (cough, fatigue, hoarse voice, headache) who saw her PCP GUILLERMO [place] on March 09. A COVID test was positive. Around March 14, she was helping her son and ended up lifting heavy railroad ties straining her upper thoracic spine. She had pain. She saw her PCP March 19. Cyclobenzaprine and a 7-day course of prednisone with little help. She came to the emergency room March 23 with increasing thoracic spine pain. Because of an elevated troponin she was admitted for observation. On March 24, she was noted to have positive IgG and IgM Lyme and was placed on doxycycline. Echocardiogram revealed trace pericardial effusion. A CT of the chest was unremarkable. MRI of the thoracic spine showed no fractures and some degenerative changes only. Consultation with Dr. White March 25 was obtained and he recommended conservative management. Patient has hide hypertension throughout the hospital stay. She was seen by pain management and given judicious amounts of narcotics, steroids, and ended up having an epidural steroid injection in the thoracic spine March 27. Dr. Green, cardiology did a consult and did not feel any further cardiac testing or treatment was warranted. A sed rate was 64 and a CRP 3.14 March 27. At approximately 0445 on March 28 she was found to be minimally responsive with decreased respirations. Exam showed "fixed dilated" pupils and incontinence of bowel. There was blood around her tongue and lips and she was noted to be in atrial fibrillation. She was intubated and sent to the ICU. She has been on propofol since. No seizure activity has been noted since. The patient was given 1.5 g IV levetiracetam loading dose. This morning, CBC showed a white count of 14 (but she was on steroids), and a largely unremarkable CBC and CHEM profile otherwise. Troponin was elevated at 45 and then later on today at 84. CT scan of the head showed a rather medium/significant sized old right parieto- occipital stroke, without hemorrhage. Looking through the history I cannot find any mention of a stroke although apparently she had a skull fracture at age 2 requiring surgical repair. This may be a very old area of encephalomalacia from old head injury. CT angiography of the head and neck were unremarkable with no significant vascular anomalies or stenoses. Allergies Allergy/AdvReac Type Severity Reaction Status Date / Time No Known Drug Allergies Allergy Verified 03/19/24 14:03 [place] extract Allergy Verified 03/19/24 14:03 Home Medications Medication Instructions Recorded Confirmed Type multivitamin 1 tab PO QAM 10/08/18 03/23/24 History atorvastatin 40 mg tablet 40 mg PO DAILY #90 tabs 05/07/23 03/23/24 Rx losartan 50 mg tablet 50 mg PO DAILY #90 tabs 05/07/23 03/23/24 Rx albuterol sulfate 90 mcg/actuation See Rx Instructions .Route 11/22/23 03/23/24 Rx aerosol inhaler (Ventolin HFA) .COMPLEX #18 grams benzonatate 200 mg capsule 200 mg PO TID PRN cough #20 caps 03/09/24 03/23/24 Rx prednisone 20 mg tablet 40 mg (2 x 20 mg) PO DAILY #14 tabs 03/19/24 03/23/24 Rx cyclobenzaprine 5 mg tablet 5 - 10 mg PO TID PRN muscle spasm 03/23/24 03/23/24 History lidocaine 5 % topical patch 1 patch transdermal QAM #15 ea 03/24/24 Rx baclofen 20 mg tablet 20 mg PO TID #30 tabs 03/26/24 Rx doxycycline hyclate 100 mg capsule 100 mg PO BID 25 days #50 caps 03/26/24 Rx Patient History Medical History Cervical radiculopathy Fluid retention Surgical History History of total abdominal hysterectomy and bilateral salpingo-oophorectomy History of bilateral tubal ligation History of dilatation and curettage History of craniotomy depressed skull fx--repair at 2yrs old History of elbow surgery right History of hand surgery left thumb removed part of bone History of colonoscopy History of wisdom tooth extraction Family History Mother Family history of diabetes mellitus Grandmother (Maternal) Family history of diabetes mellitus Myocardial infarction Other No family history of adverse response to anesthesia Denies family history of Ovarian cancer Prostate cancer Breast cancer Colorectal cancer Social History Smoking Status: Never smoker Second Hand Exposure: No; Do You Dip or Chew Tobacco: No; Hx Alcohol Use: No Hx Substance Use: No Preferred Language: [place] Communication Ability: Effective Ship[employer] Required: No Beliefs That Will Affect Care: None marital status: / Current Living Situation: Alone current occupational status: retired How many Children do You have: 3 Feels Safe at Home: Yes Childhood Exposure to Second-Hand Smoke: No Diet: regular caffeine: Yes (tea) Dental Care, Regularly: Yes Physical Activity Frequency: Daily Seatbelt Use: always Sunscreen Use: Yes Assistive Devices: None Review of Systems Review of Systems: Unobtainable due to endotracheal tube Patient is on propofol and intubatedunable to answer any questions Exam (Neuro) Physical Exam: The patient currently is on propofol She is lying in bed with her eyes closed and very rare use with minimal effort. Eyes are front and pupils are 4 mm bilaterally and equally reactive to light. There is movement of the eyes some with head turning. She has a positive cough and gag and she grimaces to deep pain. She will withdraw her legs (left greater than right) and the left arm to deep pain and other stimuli. She will pull her legs back with light stimuli. Tone is decreased toes are downgoing to plantar stimulation bilaterally. Results & Data Vital Signs (Past 12 Hours) Vital Signs Temp Pulse Pulse Resp BP BP Pulse Ox 03/28/24 07:15 121/73 03/28/24 07:00 78 22 100 03/28/24 07:00 131/77 03/28/24 06:51 78 22 100 03/28/24 06:45 134/76 03/28/24 06:42 80 22 100 03/28/24 06:33 132/71 03/28/24 06:33 132/71 03/28/24 06:30 80 22 100 03/28/24 06:15 143/79 H 03/28/24 06:15 84 22 100 03/28/24 06:12 150/78 H 03/28/24 06:06 99 H 23 100 03/28/24 06:00 186/107 H 03/28/24 05:57 100 H 22 100 03/28/24 05:55 188/101 H 03/28/24 05:55 188/101 H 03/28/24 05:55 188/101 H 03/28/24 05:55 188/101 H 03/28/24 05:54 110 H 22 100 03/28/24 05:39 98 H 22 99 03/28/24 05:05 79 22 99 03/28/24 05:00 103 H 03/28/24 04:48 107 H 03/28/24 04:36 100 H 03/28/24 04:18 143 H 03/28/24 04:03 75 03/28/24 03:47 74 186/91 H 03/28/24 03:45 72 03/28/24 03:30 71 03/28/24 03:15 66 03/28/24 02:36 74 03/28/24 02:22 36.7 C 71 16 210/90 H 97 03/28/24 02:18 74 03/28/24 02:00 85 03/28/24 01:45 70 03/28/24 01:33 69 03/28/24 01:15 69 03/28/24 01:00 79 03/28/24 00:45 79 03/28/24 00:36 75 03/28/24 00:21 72 03/28/24 00:00 73 03/27/24 23:57 83 03/27/24 23:33 69 03/27/24 23:15 66 03/27/24 23:14 36.7 C 70 18 198/87 H 97 03/27/24 23:09 75 03/27/24 22:48 66 03/27/24 22:30 67 03/27/24 22:15 80 03/27/24 22:12 70 03/27/24 21:54 77 03/27/24 21:45 69 03/27/24 21:42 68 03/27/24 20:33 36.3 C L 78 16 183/91 H 97 O2 Del Method FiO2 03/28/24 07:15 03/28/24 07:00 03/28/24 07:00 03/28/24 06:51 03/28/24 06:45 03/28/24 06:42 03/28/24 06:33 03/28/24 06:33 03/28/24 06:30 03/28/24 06:15 03/28/24 06:15 03/28/24 06:12 03/28/24 06:06 03/28/24 06:00 03/28/24 05:57 03/28/24 05:55 03/28/24 05:55 03/28/24 05:55 03/28/24 05:55 03/28/24 05:54 03/28/24 05:39 03/28/24 05:05 40 03/28/24 05:00 03/28/24 04:48 03/28/24 04:36 03/28/24 04:18 03/28/24 04:03 03/28/24 03:47 03/28/24 03:45 03/28/24 03:30 03/28/24 03:15 03/28/24 02:36 03/28/24 02:22 Room Air 03/28/24 02:18 03/28/24 02:00 03/28/24 01:45 03/28/24 01:33 03/28/24 01:15 03/28/24 01:00 03/28/24 00:45 03/28/24 00:36 03/28/24 00:21 03/28/24 00:00 03/27/24 23:57 03/27/24 23:33 03/27/24 23:15 03/27/24 23:14 Room Air 03/27/24 23:09 03/27/24 22:48 03/27/24 22:30 03/27/24 22:15 03/27/24 22:12 03/27/24 21:54 03/27/24 21:45 03/27/24 21:42 03/27/24 20:33 Room Air PG Care Time/CCT Total # of Minutes Spent Total Time Spent with Patient: Total time spent is greater than 50% in coordination of care (as documented) at patient's floor/unit and/or counseling patient: Coding Level of Care Code 73429 INT INP/OBS CARE 3/75MIN Diagnoses Altered mental status R41.82 Radicular pain of thoracic region M54.14 Primary hypertension I10 Hypertension type: primary hypertension Positive Lyme disease serology R76.8 Time Spent (min) 90 (3) Hypertension Hypertension type: primary hypertension Qualified Code(s): I10 - Essential ( primary) hypertension
--- NOTE | 2024-03-28 08:21 | Hospitalist Progress Note ---
Date of Service March 28, 2024 Assessment & Plan (1) Altered mental status: Plan: Angela castillo called the evening of 03/27/2024. Patient evaluated and intubated for airway management secondary to unresponsiveness CT of the head with 3.7 cm focus of encephalomalacia in the right parietal lobe. No hemorrhage or mass effect. No acute findings CTA of the head without vascular abnormality Managed overnight with propofol for sedation Neurology has been consulted and patient has been seen by Dr. Thomas Anticipate MRI with and without contrast Unclear if this was new stroke or seizure Obtain EEG this morning -patient loaded with Keppra 8:23 PM for 1500 mg (2) Back pain: Plan: Patient admitted for pain control for back pain following helping family this past Saturday/Saturday (March 15) railroad tie and felt pain in mid upper back area and saw PCP this past and prescribed rx for Flexeril and prednisone x7 day course * Of note, patient did also test POSITIVE for COVID-19 on 03/17 with symptoms of sudden onset fatigue, ,headache, nonproductive course and hoarse voice. No SOB or post-nasal drip and was rx 7 day prednisone and tessalon pearls at that time Reports pain worsened with movement and + tenderness to palpation, however no extremity numbness/tingling or focal weakness on admission CT cervical spine w/ no fracture or subluxation, does note T1-T2 moderate to space narrowing, L1-L2 moderate to severe narrowing. No lower extremity symptoms or red flag symptoms Admitted for pain control, therapy evaluations. If worsening or + neuro sx, f/u MRI recommended but w/o red flag sx and sx present for < 1month CTA chest negative given +ddimer/recent COVID. Remains on Lovenox SQ for DVT prophylaxis MRI thoracic spine w/o fracture/subluxation. Does have degenerative changes most pronounced at T1-T2 level, moderate to severe bilateral neural foraminal narrowing but no central canal narrowing. normal cord signal. Dr White saw, muscular strain. ongoing pain control/therapy. no intervention. Ongoing issues over past 2 nights with pain control. Had significant improvement w/ scheduled baclofen and heating pad yesterday but ongoing pain overnight into this morning requiring IV opiates. Pain management consulted - s/p trigger point injections 03/27. - placed on medrol dose pack. Planning to arrange for TEA this upcoming week. Toradol avaialble as weel Continue heating pad, baclofen. Topical voltaren/lidocaine patch Does have elevated ESR/CRP, no evidence for pericarditis on EKG. Cards consulted - see note. Could have underlying rheumatological condition - outpt f/u pending ongoing management If pain improved and controlled with ORAL medicatoins overnight, plan for dc 03/28 with OUTPATIENT PT. NO LIFTING MORE THAN 5 LB. Lyme testing also +, Doxy BID started and would plan for 28 day course given prior tx 21 days for +IgM/IgG on screening 03/28/2024: Patient intubated last night for acute change of mental status. Currently she is ventilated and on propofol. Analgesia per ICU team (3) Elevated troponin: Plan: Elevated troponin 30.9 on high sensitivity testing on admission. Suspect demand ischemia in the setting of pain.No CP reported.?post viral. Did have recent + COVID testing less than [address] chest WITHOUT evidence for aortic abnormality EKG w/o acute ischemic findings, and repeat troponin trended DOWN --> 19.0 Telemetry with NSR 80s, occasional PAC She has not had any anterior chest pain, pain is all midline spine in her low back -- however see above, did obtain CT chest given recent COVID/elevated ddimer -- NEGATIVE ECHO obtained for completeness given family hx hypertrophic cardiomyopathy --> ECHO w/ normal LV size and function, EF 60-65%. RV is normal in size/function. Mild MR. RVSP is normal TRACE noncircumferential pericardial effusion (maximum depth few millimeters). NOT hemodynamically significant Lyme + as above Repeat trop 03/27/2024 for reports of discomfort but more MSK related. Trop was 27 but BP significantly elevated w/ pain and suspect demand. Cards consulted - see note. NOT felt cardiac in nature. NSR on telemetry (4) Positive Lyme disease serology: Plan: positive testing despite prior treatment, however both IgG/IgM positive and discussed w/ supervising provider. She did complete 21 day course for prior + testing on tick sent last year after removal started doxy 100mg BID on 03/24/2024, plan for 28 day course, follow up PCP ?contributing to current presentation Did add anaplasmosis/babesia smear to eval for any co-infection (5) Hypertension: Plan: - Chronic, SIGNIFICANT ELEVATIONS WITH PAIN - Hydralazine IV made available -Hemodynamically stable at this time (6) Hypercholesterolemia: Plan: - Continue atorvastatin (7) Exercise-induced asthma: Plan: Recent rx for prednisone for +COVID as above and back following Ddimer +, Ct NEG for PE Had completed prednisone 40mg on 03/26 however pain management recs for medrol dose pack -- has been ordered 97% on RA, lungs CLEAR on EXAM, no wheezing Plan DVT proph: Lovenox SQ while inpatient s/p trigger point injections and plans for outpatient pain management. (Ms Rodriguez is Navarro Xie's 's aunt) Admission and Anticipated Discharge Date Admission Date: March 25, 2024 Supervising Physician Co-Signing Physician Notes The patient was not seen by me. The chart was reviewed. Case discussed with JEYSON Jansen. Agree with assessment and plan Subjective Attending: Dr. Wang Patient seen yesterday by Cindy Hanley PA-C. At that time patient was sitting up in bed with her daughter in the room and doing well. She had a trigger point injection with pain management and seem to have relief. Patient was given 2 mg of morphine at 1930 and was later found to be unresponsive. A code purple was called initially. Patient was endotracheally intubated and sent to the ICU in room 101. She was seen there this morning and is currently sedated with propofol. She received some Versed overnight but no other analgesia. She was given Narcan x 2 with no response. Patient does have history of stroke. CTA and CT head last night were negative for acute findings. MRI with and without contrast is planned for this morning. On physical exam this morning, toes are downgoing bilaterally. Patient does try to blink with painful stimuli to forehead. No voluntary movement of extremities. Lungs are clear to auscultation. Heart rate is controlled and normal range at 78 bpm. Patient is afebrile. Blood pressure stable at 121/73. Neurology has been consulted and is evaluating the patient. EEG is planned for later this morning. Suspect that this may be seizure. Patient was loaded with Keppra 1500 mg. Discussed at length with neurology and with critical care team this morning. Currently they are managing care. Review of Systems 2 Review of Systems: Unobtainable due to endotracheal tube Physical Exam 2 Physical Exam: GENERAL : No acute distress. Patient is intubated and currently sedated with propofol gtt EYES: No icterus, gaze conjugate. Pupils are equal NOSE: No evidence of epistaxis MOUTH: No lesions or candidiasis. Endotracheal tube is in place and secure NECK: Supple LUNGS: CTA B/L, no wheezes, rales or rhonchi HEART: Regular, rate controlled with a rate of 78 bpm ABDOMEN: Soft, NT, ND, BS Present in all 4 quadrants EXTREMITIES: No LE edema, pedal pulses intact and equal. Patient does retract left leg on examination NEURO: Currently intubated and on propofol. No spontaneous movement of limbs. Pupils are equal. Hopefully, propofol can be titrated off and patient can be extubated for more comprehensive exam Results & Data Results & Data Vital Signs (Past 12 Hours) Vital Signs Temp Pulse Pulse Resp BP BP Pulse Ox 03/28/24 07:15 121/73 03/28/24 07:00 78 22 100 03/28/24 07:00 131/77 03/28/24 06:51 78 22 100 03/28/24 06:45 134/76 03/28/24 06:42 80 22 100 03/28/24 06:33 132/71 03/28/24 06:33 132/71 03/28/24 06:30 80 22 100 03/28/24 06:15 143/79 H 03/28/24 06:15 84 22 100 03/28/24 06:12 150/78 H 03/28/24 06:06 99 H 23 100 03/28/24 06:00 186/107 H 03/28/24 05:57 100 H 22 100 03/28/24 05:55 188/101 H 03/28/24 05:55 188/101 H 03/28/24 05:55 188/101 H 03/28/24 05:55 188/101 H 03/28/24 05:54 110 H 22 100 03/28/24 05:39 98 H 22 99 03/28/24 05:05 79 22 99 03/28/24 05:00 103 H 03/28/24 04:48 107 H 03/28/24 04:36 100 H 03/28/24 04:18 143 H 03/28/24 04:03 75 03/28/24 03:47 74 186/91 H 03/28/24 03:45 72 03/28/24 03:30 71 08/24/24 03:15 66 03/28/24 02:36 74 03/28/24 02:22 36.7 C 71 16 210/90 H 97 03/28/24 02:18 74 03/28/24 02:00 85 03/28/24 01:45 70 03/28/24 01:33 69 03/28/24 01:15 69 03/28/24 01:00 79 03/28/24 00:45 79 03/28/24 00:36 75 03/28/24 00:21 72 03/28/24 00:00 73 03/27/24 23:57 83 03/27/24 23:33 69 03/27/24 23:15 66 03/27/24 23:14 36.7 C 70 18 198/87 H 97 03/27/24 23:09 75 03/27/24 22:48 66 03/27/24 22:30 67 03/27/24 22:15 80 03/27/24 22:12 70 03/27/24 21:54 77 03/27/24 21:45 69 03/27/24 21:42 68 03/27/24 20:33 36.3 C L 78 16 183/91 H 97 O2 Del Method FiO2 03/28/24 07:15 03/28/24 07:00 03/28/24 07:00 03/28/24 06:51 03/28/24 06:45 03/28/24 06:42 03/28/24 06:33 03/28/24 06:33 03/28/24 06:30 03/28/24 06:15 03/28/24 06:15 03/28/24 06:12 03/28/24 06:06 03/28/24 06:00 03/28/24 05:57 03/28/24 05:55 03/28/24 05:55 03/28/24 05:55 03/28/24 05:55 03/28/24 05:54 03/28/24 05:39 03/28/24 05:05 40 03/28/24 05:00 03/28/24 04:48 03/28/24 04:36 03/28/24 04:18 03/28/24 04:03 03/28/24 03:47 03/28/24 03:45 03/28/24 03:30 03/28/24 03:15 03/28/24 02:36 03/28/24 02:22 Room Air 03/28/24 02:18 03/28/24 02:00 03/28/24 01:45 03/28/24 01:33 03/28/24 01:15 03/28/24 01:00 03/28/24 00:45 03/28/24 00:36 03/28/24 00:21 03/28/24 00:00 03/27/24 23:57 03/27/24 23:33 03/27/24 23:15 03/27/24 23:14 Room Air 03/27/24 23:09 03/27/24 22:48 03/27/24 22:30 03/27/24 22:15 03/27/24 22:12 03/27/24 21:54 03/27/24 21:45 03/27/24 21:42 03/27/24 20:33 Room Air Laboratory Results 03/28/24 04:22 03/28/24 04:22 03/28/24 05:27 POC pCO2 29 L POC pO2 207 H ABG performed this morning at 05:27 AM pH 7.48, pCO2 29, PaO2 207, HCO3 22, total CO2 23, temperature corrected pH 7.486, temperature corrected pCO2 29, O2 saturation 100% Currently intubated with tidal volume of 400, PEEP of 5, FiO2 40%, respiratory rate 22 Diagnostic Findings Chest X-Ray 03/27/24 09:49 XR chest 1V portable HISTORY: Atypical chest pain COMPARISON: Chest 11/23/2015. FINDINGS: The lungs are clear. Cardiac silhouette is normal in size. No pleural effusions. No pneumothorax. IMPRESSION: No acute process. ACT 112: Negative or not required by law. Electronically signed by: Anand Figueroa M.D. 03/27/2024 12:[address] 03/28/24 04:16 Exam(s): CT HEAD Without Contrast EXAM: CT Head Without Intravenous Contrast CLINICAL HISTORY: Reason for exam: AMS. TECHNIQUE: Axial computed tomography images of the head/brain without intravenous contrast. CTDI is 71.02 mGy and DLP is 702.46 mGy-cm. Automated exposure control was utilized for the study. A dose lowering technique was utilized adhering to the principles of ALARA. COMPARISON: No relevant prior studies available. FINDINGS: Brain: There is a 3.7 cm focus of encephalomalacia in the right parietal lobe. No hemorrhage. No significant white matter disease. Ventricles: Unremarkable. No ventriculomegaly. Bones/joints: Unremarkable. No acute fracture. Soft tissues: Unremarkable. Sinuses: Unremarkable as visualized. No acute sinusitis. Mastoid air cells: Unremarkable as visualized. No mastoid effusion. IMPRESSION: No acute intracranial abnormality Electronically signed by: Edu Gallagher MD 03/28/24 08:01 AM Head CTA 03/28/24 04:35 Exam(s): CTA HEAD With Contrast IV Amt: 119 ml opti 320 EXAM: CT Angiography Head With Intravenous Contrast CLINICAL HISTORY: Reason for exam: sls. TECHNIQUE: Axial computed tomographic angiography images of the head with intravenous contrast. CTDI is 12.7 mGy and DLP is 470.26 mGy-cm. Automated exposure control was utilized for the study. A dose lowering technique was utilized adhering to the principles of ALARA. MIP reconstructed images were created and reviewed. CONTRAST: Patient received 119 ml opti 320 of IV contrast COMPARISON: No relevant prior studies available. FINDINGS: Right internal carotid artery: No acute findings. Intracranial segment is patent with no significant stenosis. No aneurysm. Right anterior cerebral artery: Unremarkable. No occlusion or significant stenosis. No aneurysm. Right middle cerebral artery: Unremarkable. No occlusion or significant stenosis. No aneurysm. Right posterior cerebral artery: Unremarkable. No occlusion or significant stenosis. No aneurysm. Right vertebral artery: Unremarkable as visualized. Left internal carotid artery: No acute findings. Intracranial segment is patent with no significant stenosis. No aneurysm. Left anterior cerebral artery: Unremarkable. No occlusion or significant stenosis. No aneurysm. Left middle cerebral artery: Unremarkable. No occlusion or significant stenosis. No aneurysm. Left posterior cerebral artery: Unremarkable. No occlusion or significant stenosis. No aneurysm. Left vertebral artery: Unremarkable as visualized. Basilar artery: Unremarkable. No occlusion or significant stenosis. No aneurysm. IMPRESSION: Normal head CTA. Electronically signed by: Edu Gallagher MD 03/28/24 08:08 AM L Chest X-Ray 03/28/24 05:04 SINGLE VIEW CHEST CLINICAL HISTORY: Respiratory failure. Intubation. FINDINGS: An AP, portable, supine chest radiograph is compared to study dated 03/27/2024 and correlated with chest CT dated 03/25/2024. An endotracheal tube has been placed. The tip of the catheter projects approximately 2.5 cm above the elder. The cardiomediastinal silhouette is unremarkable. Calcified hilar nodes are similar to previous. The lungs and pleural spaces are otherwise clear. No pneumothorax is seen. The skeletal structures are osteopenic. The bony thorax is grossly intact. IMPRESSION: 1. An endotracheal tube has been placed as above. 2. There is no airspace consolidation, pleural effusion, or pneumothorax. ACT 112: Negative or not required by law. Electronically signed by: Augie Agrawal M.D. 03/28/2024 7:01 AM PG Care Time/CCT Total # of Minutes Spent Total Time Spent with Patient: Total time spent is greater than 50% in coordination of care (as documented) at patient's floor/unit and/or counseling patient: 40 minutes Coding Level of Care Code 82748 SUB INP/OBS CARE 2/35MIN Medical Decision Making High Complexity Diagnoses Altered mental status R41.82 Back pain M54.9 Elevated troponin R79.89 Positive Lyme disease serology R76.8 Primary hypertension I10 Hypertension type: primary hypertension Hypercholesterolemia E78.00 Exercise-induced asthma J45.990 Time Spent (min) 40 Comment Patient now in the intensive care unit (5) Hypertension Hypertension type: primary hypertension Qualified Code(s): I10 - Essential (primary) hypertension
[2024-03-28] MEDS: DOXYCYCLINE HYCLATE 100 MG in DEXTROSE 5% MINI-B 100 ML IV SCH (09:31)
--- NOTE | 2024-03-28 10:13 | Procedure Note ---
Procedure Note Date of Service March 28, 2024 Note I was called to the floor to intubate the patient that had been a code purple. Endotracheal Intubation Indication airway protection due to acute altered mental status. The patient was on 100% oxygen via NRB and then BVM assistance prior to the procedure. Suction, airway equipment, RSI drugs, respiratory equipment, and appropriate personnel were prepared prior to the initiation of the procedure. A time out was taken. Induction was performed with Versed 5 mg and succinylcholine 80 mg. After observing the clinical benefit of the medications, the airway was easily visualized utilizing a glide scope. A 7.5 size ETT tube was placed atraumatically to 23 cm using standard technique. The cuff inflated without signs of malfunction. There were bilateral breath sounds, positive colormetric change, no gastric sounds, a good capnography waveform, and post procedure pulse oximetry was 100%. Post intubation sedation and paralysis was administered using propofol per ICU. There were no complications. Coding
--- NOTE | 2024-03-28 10:16 | Electroencephalogram ---
EEG Procedure Note Date of Service March 28, 2024 Start / End Times Start Time: 938 End Time: [address] Thomas History 68-year-old with history of acute unresponsive episode, suspect seizure Home Medication List Medication Instructions Recorded Confirmed Type multivitamin 1 tab PO QAM 10/08/18 03/23/24 History atorvastatin 40 mg tablet 40 mg PO DAILY #90 tabs 05/07/23 03/23/24 Rx losartan 50 mg tablet 50 mg PO DAILY #90 tabs 05/07/23 03/23/24 Rx albuterol sulfate 90 mcg/actuation See Rx Instructions .Route 11/22/23 03/23/24 Rx aerosol inhaler (Ventolin HFA) .COMPLEX #18 grams benzonatate 200 mg capsule 200 mg PO TID PRN cough #20 caps 03/09/24 03/23/24 Rx prednisone 20 mg tablet 40 mg (2 x 20 mg) PO DAILY #14 tabs 03/19/24 03/23/24 Rx cyclobenzaprine 5 mg tablet 5 - 10 mg PO TID PRN muscle spasm 03/23/24 03/23/24 History lidocaine 5 % topical patch 1 patch transdermal QAM #15 ea 03/24/24 Rx baclofen 20 mg tablet 20 mg PO TID #30 tabs 03/26/24 Rx doxycycline hyclate 100 mg capsule 100 mg PO BID 25 days #50 caps 03/26/24 Rx Inpatient Medication List Acetaminophen (Acetaminophen 500 Mg Tab) 1,000 mg PO Q8 RAFAEL Stop: 04/24/24 07:44 Last Admin: 03/28/24 06:18 Dose: Not Given Documented By: Admin: 03/27/24 19:54 Dose: 1,000 mg Documented By: Admin: 03/27/24 13:48 Dose: 1,000 mg Documented By: Admin: 03/27/24 06:15 Dose: 1,000 mg Documented By: Admin: 03/26/24 21:11 Dose: 1,000 mg Documented By: Admin: 03/26/24 13:15 Dose: 1,000 mg Documented By: Admin: 03/26/24 05:20 Dose: 1,000 mg Documented By: Admin: 03/25/24 21:29 Dose: 1,000 mg Documented By: Admin: 03/25/24 12:59 Dose: 1,000 mg Documented By: Admin: 03/25/24 07:14 Dose: 1,000 mg Documented By: SARA Atorvastatin Calcium (Atorvastatin 40 Mg Tab) 40 mg PO DAILY RAFAEL Stop: 04/23/24 08:59 Last Admin: 03/28/24 07:09 Dose: Not Given Documented By: Admin: 03/27/24 08:00 Dose: 40 mg Documented By: Admin: 03/26/24 07:29 Dose: 40 mg Documented By: Admin: 03/25/24 07:15 Dose: 40 mg Documented By: Admin: 03/24/24 07:26 Dose: 40 mg Documented By: SARA Baclofen (Baclofen 20 Mg Tab) 20 mg PO TID RAFAEL Stop: 04/25/24 13:59 Last Admin: 03/27/24 19:37 Dose: 20 mg Documented By: Admin: 03/27/24 13:49 Dose: 20 mg Documented By: Admin: 03/27/24 08:00 Dose: 20 mg Documented By: Admin: 03/26/24 21:09 Dose: 20 mg Documented By: Admin: 03/26/24 13:14 Dose: 20 mg Documented By: ARMANDO Diclofenac Sodium (Diclofenac Sod 1% Gel 100 Gm Tube) 2 gm EXT TID RAFAEL; Protocol Stop: 04/25/24 10:54 Last Admin: 03/27/24 19:38 Dose: 2 gm Documented By: Admin: 03/27/24 13:48 Dose: 2 gm Documented By: Admin: 03/27/24 07:59 Dose: 2 gm Documented By: Admin: 03/26/24 21:12 Dose: 2 gm Documented By: Admin: 03/26/24 13:15 Dose: 2 gm Documented By: Admin: 03/26/24 11:27 Dose: 2 gm Documented By: ARMANDO Docusate Sodium (Docusate Sodium 100 Mg Cap) 100 mg PO BID RAFAEL Stop: 04/23/24 11:59 Last Admin: 03/28/24 07:08 Dose: Not Given Documented By: Admin: 03/27/24 19:37 Dose: 100 mg Documented By: Admin: 03/27/24 08:00 Dose: 100 mg Documented By: Admin: 03/26/24 21:08 Dose: Not Given Documented By: Admin: 03/26/24 07:27 Dose: 100 mg Documented By: Admin: 03/25/24 19:35 Dose: 100 mg Documented By: Admin: 03/25/24 07:16 Dose: 100 mg Documented By: Admin: 03/24/24 21:01 Dose: 100 mg Documented By: Admin: 03/24/24 15:31 Dose: 100 mg Documented By: SARA Enoxaparin Sodium (Enoxaparin Inj 40 Mg/0.4 Ml Syr) 40 mg SQ Q24H [facility] Stop: 04/22/24 18:29 Last Admin: 03/27/24 18:02 Dose: 40 mg Documented By: Admin: 03/26/24 17:41 Dose: 40 mg Documented By: Admin: 03/25/24 17:35 Dose: 40 mg Documented By: Admin: 03/24/24 18:09 Dose: 40 mg Documented By: Admin: 03/23/24 19:44 Dose: 40 mg Documented By: CHRISTIANO Famotidine (Famotidine 20 Mg Tab) [facility] Stop: 04/23/24 08:59 Last Admin: 03/28/24 07:08 Dose: Not Given Documented By: Admin: 03/27/24 07:59 Dose: 20 mg Documented By: Admin: 03/26/24 07:29 Dose: 20 mg Documented By: Admin: 03/25/24 07:16 Dose: 20 mg Documented By: Admin: 03/24/24 08:23 Dose: 20 mg Documented By: SARA Propofol (Diprivan) 1,000 mg in 100 mls @ 7.704 mls/hr IV .[id number] [facility]; Protocol Stop: 03/31/24 05:29 Last Admin: 03/28/24 09:37 Dose: 50 mcg/kg/min, 19.3 mls/hr Documented By: MAGALIE Co-signed By: LAF Titration: 03/28/24 09:37 Dose: Infused Documented By: MAGALIE Co-signed By: LAF Titration: 03/28/24 06:52 Dose: 50 mcg/kg/min, 19.3 mls/hr Documented By: YESENIA Co-signed By: MAGALIE Admin: 03/28/24 06:14 Dose: 50 mcg/kg/min, 19.3 mls/hr Documented By: YESENIA Co-signed By: GRACE Doxycycline Hyclate 100 mg/ (Dextrose) 100 mls @ 50 mls/hr IV Q12H [facility] Stop: 04/07/24 08:59 Last Admin: 03/28/24 09:31 Dose: 50 mls/hr Documented By: MAGALIE Ketorolac Tromethamine (Ketorolac Tromethamine 15 Mg/Ml Vial) 10 mg IV Q6H PRN PRN Reason: Pain, second line Stop: 03/28/24 17:16 Last Admin: 03/25/24 19:33 Dose: 10 mg Documented By: Admin: 03/25/24 02:32 Dose: 10 mg Documented By: Admin: 03/24/24 19:28 Dose: 10 mg Documented By: Admin: 03/23/24 23:25 Dose: 10 mg Documented By: CHRISTIANO Lidocaine (Lidocaine 5% 1 Patch) 1 patch TD QAM [facility] Stop: 04/23/24 11:29 Last Admin: 03/27/24 08:00 Dose: 1 patch Documented By: Admin: 03/26/24 07:30 Dose: 1 patch Documented By: Admin: 03/25/24 07:13 Dose: 1 patch Documented By: Admin: 03/24/24 13:03 Dose: 1 patch Documented By: SARA Losartan Potassium (Losartan Potassium 50 Mg Tab) 50 mg PO DAILY [facility] Stop: 04/23/24 08:59 Last Admin: 03/27/24 08:00 Dose: 50 mg Documented By: Admin: 03/26/24 07:28 Dose: 50 mg Documented By: Admin: 03/25/24 07:16 Dose: 50 mg Documented By: Admin: 03/24/24 07:26 Dose: 50 mg Documented By: SARA Miscellaneous (Remove Lidoderm Patch) 1 each N/A DAILY@2100 [facility] Stop: 04/22/24 20:59 Last Admin: 03/27/24 19:54 Dose: 1 each Documented By: Admin: 03/26/24 21:09 Dose: Not Given Documented By: Admin: 03/25/24 19:39 Dose: 1 each Documented By: Admin: 03/25/24 00:09 Dose: 1 each Documented By: Admin: 03/23/24 21:06 Dose: 1 each Documented By: CHRISTIANO Multivitamins (Multivitamin Tab) 1 tab PO QAM [facility]EL Stop: 04/23/24 08:59 Last Admin: 03/28/24 07:08 Dose: Not Given Documented By: Admin: 03/27/24 07:59 Dose: 1 tab Documented By: Admin: 03/26/24 07:28 Dose: 1 tab Documented By: Admin: 03/25/24 07:15 Dose: 1 tab Documented By: Admin: 03/24/24 07:26 Dose: 1 tab Documented By: SARA Ondansetron HCl (Ondansetron Inj 2 Mg/Ml 2 Ml Vial) 4 mg IV Q6H PRN PRN Reason: Nausea Stop: 04/22/24 18:05 Last Admin: 03/27/24 19:43 Dose: 4 mg Documented By: Admin: 03/25/24 02:32 Dose: 4 mg Documented By: GODFREY Polyethylene Glycol (Polyethylene (Miralax) 17 Gm Pack) 17 gm PO DAILY PRN PRN Reason: Constipation Stop: 04/22/24 18:05 Last Admin: 03/25/24 22:36 Dose: 17 gm Documented By: GODFREY Polyethylene Glycol (Polyethylene (Miralax) 17 Gm Pack) 17 gm PO TID RAFAEL Stop: 04/24/24 13:59 Last Admin: 03/28/24 07:08 Dose: Not Given Documented By: Admin: 03/27/24 19:40 Dose: 17 gm Documented By: Admin: 03/27/24 13:49 Dose: 17 gm Documented By: Admin: 03/27/24 08:01 Dose: Not Given Documented By: Admin: 03/26/24 21:08 Dose: Not Given Documented By: Admin: 03/26/24 13:17 Dose: 17 gm Documented By: Admin: 03/26/24 07:29 Dose: 17 gm Documented By: Admin: 03/25/24 19:32 Dose: 17 gm Documented By: Admin: 03/25/24 14:13 Dose: 17 gm Documented By: SARA Discontinued Medications Acetaminophen (Acetaminophen 325 Mg Tab) 650 mg PO Q4H PRN PRN Reason: Fever/Mild Pain (Pain 1,2,3) Stop: 04/22/24 17:16 Last Admin: 03/24/24 03:25 Dose: 650 mg Documented By: KOLBY Baclofen (Baclofen 10 Mg Tab) 10 mg PO TID RAFAEL Stop: 04/23/24 13:59 Last Admin: 03/26/24 07:29 Dose: 10 mg Documented By: Admin: 03/25/24 19:36 Dose: 10 mg Documented By: Admin: 03/25/24 13:00 Dose: 10 mg Documented By: Admin: 03/25/24 07:15 Dose: 10 mg Documented By: Admin: 03/24/24 21:00 Dose: 10 mg Documented By: Admin: 03/24/24 13:03 Dose: 10 mg Documented By: SARA Bisacodyl (Bisacodyl 10 Mg Supp) 10 mg [place] NOW STA Stop: 03/26/24 10:57 Last Admin: 03/26/24 11:12 Dose: 10 mg Documented By: ARMANDO Cyclobenzaprine HCl (Cyclobenzaprine Hcl 5 Mg Tab) 5 mg PO TID PRN PRN Reason: muscle spasm Stop: 04/23/24 08:59 Last Admin: 03/24/24 07:26 Dose: 5 mg Documented By: Admin: 03/24/24 03:26 Dose: 5 mg Documented By: KOLBY Diazepam (Diazepam 2 Mg Tablet) 2 mg PO NOW ONE Stop: 03/23/24 17:40 Last Admin: 03/23/24 18:36 Dose: 2 mg Documented By: SARA Diazepam (Diazepam 5 Mg/Ml 10ml Vial) 5 mg IV NOW STA Stop: 03/25/24 03:44 Last Admin: 03/25/24 04:23 Dose: Not Given Documented By: GODFREY Diazepam (Diazepam 5 Mg Tablet) 5 mg PO NOW ONE Stop: 03/25/24 03:59 Last Admin: 03/25/24 04:14 Dose: 5 mg Documented By: GODFREY Doxycycline Hyclate (Doxycycline Hyclate 100 Mg Cap) 100 mg PO BID RAFAEL Stop: 04/03/24 20:59 Last Admin: 03/27/24 19:37 Dose: 100 mg Documented By: Admin: 03/27/24 08:00 Dose: 100 mg Documented By: Admin: 03/26/24 21:10 Dose: 100 mg Documented By: Admin: 03/26/24 07:27 Dose: 100 mg Documented By: Admin: 03/25/24 19:36 Dose: 100 mg Documented By: Admin: 03/25/24 07:16 Dose: 100 mg Documented By: Admin: 03/24/24 21:03 Dose: 100 mg Documented By: GODFREY Hydralazine HCl (Hydralazine Hcl 20 Mg/Ml Vial) 10 mg IV NOW STA Stop: 03/27/24 07:49 Last Admin: 03/27/24 07:58 Dose: 10 mg Documented By: QUINTIN Hydromorphone HCl (Hydromorphone Inj 0.5 Mg/0.5 Ml Syr) 0.5 mg IV Q3H PRN PRN Reason: Moderate Pain (4,5,6) on NRS Stop: 04/06/24 17:16 Last Admin: 03/23/24 23:25 Dose: 0.5 mg Documented By: CHRISTIANO Hydromorphone HCl (Hydromorphone Inj 1 Mg/Ml Syringe) 1 mg IV Q3H PRN PRN Reason: Severe Pain (7,8,9,10) on NRS Stop: 04/06/24 17:16 Last Admin: 03/24/24 10:14 Dose: 1 mg Documented By: Admin: 03/24/24 04:15 Dose: 1 mg Documented By: CHRISTIANO Hydromorphone HCl (Hydromorphone Inj 0.5 Mg/0.5 Ml Syr) 0.5 mg IV Q3H PRN PRN Reason: Severe Pain (Scale 7, 8, 9,10) Stop: 04/06/24 17:16 Last Admin: 03/27/24 06:14 Dose: 0.5 mg Documented By: Admin: 03/26/24 07:25 Dose: 0.5 mg Documented By: Admin: 03/26/24 00:30 Dose: 0.5 mg Documented By: Admin: 03/25/24 10:03 Dose: 0.5 mg Documented By: Admin: 03/25/24 07:24 Dose: 0.5 mg Documented By: Admin: 03/25/24 00:09 Dose: 0.5 mg Documented By: GODFREY Magnesium Sulfate/Dextrose (Magnesium Sulfate / D5w) 1 gm in 100 mls @ 50 mls/hr IV Q2H [facility] Stop: 03/25/24 09:44 Last Infusion: 03/25/24 12:57 Dose: Infused Documented By: Infusion: 03/25/24 09:46 Dose: 0 mls/hr Documented By: Admin: 03/25/24 08:20 Dose: 50 mls/hr Documented By: Infusion: 03/25/24 08:18 Dose: Infused Documented By: Admin: 03/25/24 05:54 Dose: 50 mls/hr Documented By: Infusion: 03/25/24 05:54 Dose: Infused Documented By: Admin: 03/25/24 04:15 Dose: 50 mls/hr Documented By: GODFREY Lorazepam 0.5 mg/ Syringe 0.5 mls @ 2 mls/min IV NOW STA Stop: 03/27/24 07:54 Last Admin: 03/27/24 08:05 Dose: 2 mls/min Documented By: QUINTIN Levetiracetam 1,500 mg/ Sodium (Chloride) 115 mls @ 460 mls/hr IV ONCE ONE Stop: 03/28/24 05:59 Last Infusion: 03/28/24 06:36 Dose: Infused Documented By: Admin: 03/28/24 06:14 Dose: 460 mls/hr Documented By: YESENIA Ioversol (Optiray 320 100ml) 93 ml IV ONCE ONE Stop: 03/23/24 12:18 Last Admin: 03/23/24 12:18 Dose: 93 ml Documented By: SANTA Ioversol (Optiray 320 125ml) 118 ml IV ONCE ONE Stop: 03/25/24 11:09 Last Admin: 03/25/24 11:08 Dose: 118 ml Documented By: SANTA Ioversol (Optiray 320 125ml) 119 ml IV ONCE ONE Stop: 03/28/24 04:57 Last Admin: 03/28/24 04:58 Dose: 119 ml Documented By: ANISHA Ketorolac Tromethamine (Ketorolac Tromethamine 15 Mg/Ml Vial) 10 mg IV NOW ONE Stop: 03/23/24 17:18 Last Admin: 03/23/24 17:37 Dose: 10 mg Documented By: ULISES Lidocaine (Lidocaine 5% 1 Patch) 1 patch TD NOW STA Stop: 03/23/24 17:02 Last Admin: 03/23/24 17:20 Dose: 1 patch Documented By: ULISES Methylprednisolone (Methylprednisolone 4 Mg Tab) 8 mg PO 0700,2100 [facility] Stop: 03/28/24 07:01 Last Admin: 03/28/24 06:19 Dose: Not Given Documented By: Admin: 03/27/24 19:38 Dose: 8 mg Documented By: JACE Methylprednisolone (Methylprednisolone 4 Mg Tab) 4 mg PO 1300,1800 [facility] Stop: 03/28/24 13:01 Last Admin: 03/27/24 18:02 Dose: 4 mg Documented By: QUINTIN Methylprednisolone (Methylprednisolone 4 Mg Tab) 4 mg PO 0700,1300,1800 [facility] Stop: 03/28/24 18:01 Last Admin: 03/28/24 06:19 Dose: Not Given Documented By: YESEINA Midazolam HCl (Midazolam Hcl 1 Mg/Ml 2ml Vial) Confirm Administered Dose 2 mg .ROUTE .STK-MED ONE Stop: 03/28/24 04:42 Last Admin: 03/28/24 05:31 Dose: Not Given Documented By: GRACE Midazolam HCl (Midazolam Hcl 1 Mg/Ml 2ml Vial) 2 mg IV NOW STA Stop: 03/28/24 05:22 Last Admin: 03/28/24 05:31 Dose: 2 mg Documented By: GRACE Midazolam HCl (Midazolam Hcl 5 Mg/Ml 2ml Vial) 4 mg IV NOW STA Stop: 03/28/24 06:02 Last Admin: 03/28/24 06:08 Dose: 4 mg Documented By: YESENIA Anneaneous (Remove Lidoderm Patch) 1 each N/A DAILY@2100 [facility] Stop: 03/24/24 21:01 Last Admin: 03/25/24 00:09 Dose: 1 each Documented By: GODFREY Gutierrez (Rapid Sequence Induction Bag) Confirm Administered Dose 1 each N/A .STK-MED ONE Stop: 03/28/24 04:24 Last Admin: 03/28/24 06:13 Dose: Not Given Documented By: YESENIA Morphine Sulfate (Morphine Sulfate 2 Mg/Ml Carp) 2 mg IV NOW STA Stop: 03/23/24 11:01 Last Admin: 03/23/24 11:20 Dose: 2 mg Documented By: ZACH Morphine Sulfate (Morphine Sulfate 2 Mg/Ml Carp) 2 mg IV NOW STA Stop: 03/23/24 17:02 Last Admin: 03/23/24 17:36 Dose: 2 mg Documented By: ULISES Morphine Sulfate (Morphine Sulfate 2 Mg/Ml Carp) 2 mg IV NOW STA Stop: 03/27/24 09:05 Last Admin: 03/27/24 09:34 Dose: 2 mg Documented By: QUINTIN Morphine Sulfate (Morphine Sulfate 2 Mg/Ml Carp) 2 mg IV Q4H PRN PRN Reason: Severe Pain (Scale 7, 8, 9,10) Stop: 04/10/24 12:20 Last Admin: 03/27/24 19:32 Dose: 2 mg Documented By: JACE Ondansetron HCl (Ondansetron Inj 2 Mg/Ml 2 Ml Vial) 4 mg IV NOW STA Stop: 03/23/24 11:01 Last Admin: 03/23/24 11:20 Dose: 4 mg Documented By: AZCH Oxycodone HCl (Oxycodone Hcl Ir 5 Mg Tab (Immediate Release)) 5 mg PO Q4H PRN PRN Reason: moderate to severe pain Stop: 04/07/24 07:51 Last Admin: 03/27/24 16:41 Dose: 5 mg Documented By: Admin: 03/27/24 07:59 Dose: 5 mg Documented By: Admin: 03/27/24 03:11 Dose: 5 mg Documented By: Admin: 03/26/24 05:21 Dose: 5 mg Documented By: Admin: 03/25/24 22:37 Dose: 5 mg Documented By: Admin: 03/25/24 17:35 Dose: 5 mg Documented By: Admin: 03/25/24 02:32 Dose: 5 mg Documented By: Admin: 03/24/24 22:49 Dose: 5 mg Documented By: Admin: 03/24/24 08:12 Dose: 5 mg Documented By: SARA Polyethylene Glycol (Polyethylene (Miralax) 17 Gm Pack) 17 gm PO DAILY [facility] Stop: 04/23/24 11:59 Last Admin: 03/25/24 07:12 Dose: 17 gm Documented By: Admin: 03/24/24 13:03 Dose: 17 gm Documented By: SARA Prednisone (Prednisone 20 Mg Tab) 40 mg PO DAILY [facility] Stop: 03/26/24 09:01 Last Admin: 03/26/24 07:29 Dose: 40 mg Documented By: Admin: 03/25/24 07:15 Dose: 40 mg Documented By: Admin: 03/24/24 07:27 Dose: 40 mg Documented By: SARA Propofol (Propofol Iv Emulsion 10 Mg/Ml 100 Ml Vial) Confirm Administered Dose 1,000 mg IV .STK-MED ONE Stop: 03/28/24 04:36 Last Admin: 03/28/24 05:31 Dose: Not Given Documented By: GRACE Vecuronium [place] (Vecuronium [place] 10 Mg Vial) Confirm Administered Dose 10 mg IV .STK-MED ONE Stop: 03/28/24 05:10 Last Admin: 03/28/24 05:31 Dose: Not Given Documented By: GRACE Vecuronium [place] (Vecuronium [place] 10 Mg Vial) 10 mg IV NOW STA Stop: 03/28/24 05:22 Last Admin: 03/28/24 05:31 Dose: 10 mg Documented By: GRACE Co-signed By: KATRINA Description This is a 21 electrode EEG with a single channel dedicated to limited EKG. The electrodes were placed in accordance with the International 10-20 system. Interpretation The predominant background activity consists of a very irregular 6 Hz activity, of up to 40 mV in amplitude,seen fairly symmetrically distributed over all regions bilaterally. This activity had no attenuation with eye-opening and other alerting procedures. In addition to the irregular 5-6 Hz activity there was a mixture of higher amplitude slower activity occurring for a second or 2 from time to time. In addition there were periods in the first half of the recording when she would have a suppression of background activities for anywhere from 1 to 2 seconds on occasion. This background suppression was not present in the latter half of the recording. Photic stimulation was performed and elicited no change in the background activity and no abnormal responses were seen. Hyperventilation was not performed. A mild amount of muscle and movement artifact activity contaminated the recording yet did not hinder interpretation to any significant degree. Throughout the recording, no focal abnormalities or potentially epileptogenic discharges were seen. In summary, this EEG was abnormal, showing generalized cerebral dysrhythmia of a mild to moderate nature.. No focal abnormalities or potentially epileptogenic discharges were seen. Clinical Correlation The absence of potentially epileptogenic activity does not exclude a seizure disorder, since interictally, EEGs can be normal. The generalized slow activity is consistent with a moderate encephalopathy which could be due to a wide variety of causes. Clinical correlation is required. [facility] Procedure Codes Indication for Procedure (1) Altered mental status: (2) Seizure-like activity: Neurology Neurology: 51315 EEG include record awake & drowsy
[2024-03-28 10:33] LABS: Troponin I High Sensitivity 83.6 pg/ml (0-14)
[2024-03-28] MEDS: GADOBUTROL 30ML VIAL IV ONE (11:29)
[2024-03-28 12:32] LABS: BUN Creatinine Ratio 21.6 (10-20); Calcium 9.5 mg/dl (8.6-10.3); Creatinine Clr Calc Pharmacy 54.4 ml/min; Est GFR (African American) 77.7 ml/min; Potassium 3.9 mmol/L (3.5-5.1)
--- NOTE | 2024-03-28 12:47 | Magnetic Resonance Report ---
MRI OF THE BRAIN COMBO CLINICAL HISTORY: Encephalopathy. COMPARISON STUDY: CT of the brain dated 03/28/2024. TECHNIQUE: MRI of the brain was performed utilizing various T1 and T2-weighted sequences in the axial , sagittal, and coronal planes. Contrast-enhanced sequences were acquired following the administratio n of 6.5 cc of Gadavist. FINDINGS: Brain parenchyma: There is significant T2/FLAIR signal abnormality seen involving the posterior parie to-occipital cortex. This vessel and the coronal FLAIR sequences. There are some apparent signal abno rmality in the cerebellum. There is no associated stricture diffusion or abnormal postcontrast enhanc ement. A focus of right parietal encephalomalacia is unchanged and consistent with a remote insult. T here is no hemorrhage or mass effect. There is no restricted diffusion typical for acute ischemia. No enhancing mass lesion is identified on the postcontrast images. No extra-axial fluid collection is seen. The cerebellar tonsils are normal in configuration. Ventricles, sulci, and cisterns: Normal in configuration. Pituitary and sella: Unremarkable. Intracranial vasculature: Normal flow voids are maintained at the skull base. Orbits: The bony orbits are grossly intact. Orbital contents are normal in appearance. Sinuses and mastoids: There is trace mucosal thickening within the ethmoid sinuses. The remaining par anasal sinuses are clear. Secretions are noted in the pharynx. The mastoid air cells are well pneumat ized. Calvarium: Postsurgical changes seen on the right convexity. No destructive calvarial lesion is ident ified. Cervical cord: Partially visualized cervical spinal cord is normal in morphology and signal intensity . IMPRESSION: 1. There is no hemorrhage, enhancing mass, or evidence of acute ischemia. 2. There is significant T2/FLAIR signal are seen within the posterior parieto-occipital cortex and th e cerebellum. The distribution strongly favors PRES (posterior reversible encephalopathy syndrome). A nonspecific encephalitis/cerebritis of other etiology could potentially appear similar. Clinical cor relation will be essential. 3. Additional findings as above. Findings were discussed with Dr. Ng at the time of interpretation. ACT 112: Negative or not required by law. Electronically signed by: Augie Agrawal M.D. 03/28/2024 12:45 PM
[2024-03-28] MEDS: niCARdipine 25 MG in SODIUM CHLORIDE 0.9% 240 ML IV SCH (15:30)
[2024-03-28] MEDS: oxyCODONE HCL IR 5 MG TAB (IMMEDIATE RELEASE) PO STA (16:10)
[2024-03-28] MEDS ORDERED: SUCCINYLCHOLINE CHLORIDE 20 MG/ML 10 ML VIAL IV ONE (16:32)
[2024-03-28] MEDS ORDERED: MIDAZOLAM HCL 5 MG/ML 2ML VIAL IV ONE (16:32)
[2024-03-28] MEDS: MoRPHine SULFATE 2 MG/ML CARP IV PRN (17:09)
[2024-03-28] MEDS: ICU Protocol for HYPERglycemia SCH (17:19)
[2024-03-28] MEDS: oxyCODONE HCL IR 5 MG TAB (IMMEDIATE RELEASE) PO PRN (19:24)
[2024-03-28] MEDS ORDERED: levETIRAcetam 500 MG/5 ML VIAL IV SCH (21:00)
[2024-03-28] MEDS ORDERED: methylPREDNISolone 4 MG TAB PO SCH (21:00)
[2024-03-28] MEDS: levETIRAcetam IV 500 MG in SODIUM CHLOR 0.9% MINI-B 100 ML IV SCH (21:35)
[2024-03-29 05:17] LABS: Basophils # (auto) 0.06 K/uL (0.00-0.20); Basophils % (auto) 0.5 %; Eosinophils # (auto) 0.01 K/uL (0.00-0.50); Eosinophils % (auto) 0.1 %; Hematocrit (blood only) 38.5 % (37.0-47.0); Hemoglobin 12.8 g/dl (12.0-16.0); Immature Granulocytes # (auto) 0.19 K/uL (0.01-0.20); Immature Granulocytes % (auto) 1.7 %; Lymphocytes # (auto) 1.95 K/uL (1.20-3.40); Lymphocytes % (auto) 17.1 %; Mean Corpuscular Hemoglobin 26.8 pg (25.0-34.0); Mean Corpuscular Hgb Conc 33.2 g/dL (32.0-36.0); Mean Corpuscular Volume 80.5 fL (80.0-100.0); Mean Platelet Volume 9.5 fL (9.4-12.4); Monocytes # (auto) 0.76 K/uL (0.11-0.59); Monocytes % (auto) 6.7 %; Neutrophils # (auto) 8.42 K/uL (1.40-6.50); Neutrophils % (auto) 73.9 %; Platelet Count 439 K/uL (130-400); RDW Coefficient of Variation 14.6 % (11.5-14.5); RDW Standard Deviation 42.9 fL (36.4-46.3); Red Blood Count 4.78 M/uL (4.20-5.40); White Blood Count 11.39 K/ul (4.8-10.8)
[2024-03-29 05:19] LABS: BUN Creatinine Ratio 21.5 (10-20); Calcium 8.9 mg/dl (8.6-10.3); Creatinine Clr Calc Pharmacy 60.6 ml/min; Est GFR (African American) 88.5 ml/min; Est GFR (Non-African American) 76.4 ml/min; Phosphorus 4.5 mg/dl (2.5-4.9); Potassium 4.2 mmol/L (3.5-5.1)
[2024-03-29] MEDS ORDERED: methylPREDNISolone 4 MG TAB PO SCH (07:00)
[2024-03-29] MEDS: amLODIPine BESYLATE 5 MG TAB PO SCH (08:06)
--- NOTE | 2024-03-29 10:45 | Neurology Progress Note ---
Date of Service March 29, 2024 Assessment & Plan (1) Altered mental status: (2) Seizure-like activity: (3) PRES (posterior reversible encephalopathy syndrome): Plan This patient was admitted March 23 with upper thoracic spine pain likely sprain from lifting creating considerable pain requiring observation and pain management. This morning she was found "unresponsive" with blood around her lips and fecal incontinence. Certainly, she could have had a generalized seizure with postictal state. 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 MRI of the brain showed no acute stroke but did show white matter changes consistent with PRES. She has not had any further clinical events to suggest seizures. Today she is remarkably better clinically with no focal findings, meningeal signs, or encephalopathy. She is not having the low back pain today either. Interestingly she has a positive Lyme test and a markedly elevated sedimentation rate and CRP. There is no other evidence of infection. I cannot exclude an active rheumatologic immunologic disease creating the elevations of these inflammatory marker. She has a history of hypertension, with significant elevations intermittently since admission. Blood pressure is much better the last 24 hours Recommendations: 1. Continue doxycycline 100 mg twice a day for a full 4 weeks. 2. I see no need for a lumbar puncture at this time` 3. Pain management to address thoracic spine issues 4. I can follow-up as an outpatient and 4 weeks or so after discharge (with the neurology PA). Please contact me if I can be of further assistance on this case. Overall, I spent a total of 50 minutes with this case including review of records, review of CT and MRI films, direct evaluation of the patient at bedside, report generation, and discussion of the case with the patient, daughter, and RN at bedside, as well as Dr Ng, and Dr. Wang, including differential diagnosis and treatment options. Admission and Anticipated Discharge Date Admission Date: March 25, 2024 Subjective Patient feels well with no headache, back pain (including thoracic), weakness, numbness, dizziness, vision issues, or confusion. Nursing reports no new issues or seizures. Blood pressure is 142/82 today. MRI of the brain March 28, showed signal changes in the posterior parietal occipital head region and cerebellum consistent with PRES. There was no evidence of acute stroke. EEG March 28, showed generalized slowing but no focal findings or potentially epileptogenic discharges CBC shows mildly elevated white count and CHEM profile is largely unremarkable Results & Data Vital Signs (Past 12 Hours) Vital Signs Pulse Resp BP Pulse Ox 03/29/24 10:03 142/82 H 03/29/24 10:03 85 16 03/29/24 09:09 98 H 23 03/29/24 08:06 90 23 03/29/24 08:00 131/67 03/29/24 08:00 131/67 03/29/24 08:00 131/67 03/29/24 07:57 91 H 23 03/29/24 07:51 147/77 H 03/29/24 07:51 147/77 H 03/29/24 07:39 93 H 21 96 03/29/24 07:02 83 18 96 03/29/24 07:00 137/67 03/29/24 07:00 137/67 03/29/24 07:00 137/67 03/29/24 06:38 73 15 95 03/29/24 06:32 76 17 95 03/29/24 06:26 71 29 H 96 03/29/24 06:22 138/63 03/29/24 06:22 138/63 03/29/24 06:17 68 15 95 03/29/24 06:02 75 11 L 96 03/29/24 05:50 69 9 L 95 03/29/24 05:47 70 10 L 94 03/29/24 05:39 70 9 L 95 03/29/24 05:20 76 13 95 03/29/24 05:14 135/66 03/29/24 05:14 135/66 03/29/24 05:14 135/66 03/29/24 05:14 85 14 97 03/29/24 05:11 72 11 L 95 03/29/24 05:05 68 10 L 95 03/29/24 04:56 70 8 L 95 03/29/24 04:47 69 14 96 03/29/24 04:35 71 16 95 03/29/24 04:20 67 15 95 03/29/24 04:01 135/74 03/29/24 04:01 135/74 03/29/24 04:00 69 12 96 03/29/24 03:59 68 15 96 03/29/24 03:44 67 14 95 03/29/24 03:21 68 11 L 96 03/29/24 03:12 67 11 L 95 03/29/24 03:00 141/60 H 03/29/24 02:54 70 16 96 03/29/24 02:30 68 6 L 94 03/29/24 02:21 80 4 L 87 L 03/29/24 02:15 81 19 99 03/29/24 02:03 72 9 L 99 03/29/24 02:00 151/68 H 03/29/24 01:48 73 13 96 03/29/24 01:42 72 13 96 03/29/24 01:30 73 15 99 03/29/24 01:15 79 14 98 03/29/24 01:00 139/66 03/29/24 00:54 77 14 95 03/29/24 00:45 138/64 03/29/24 00:45 138/64 03/29/24 00:45 138/64 03/29/24 00:42 80 13 96 03/29/24 00:39 76 12 96 03/29/24 00:30 137/66 03/29/24 00:27 70 17 95 03/29/24 00:15 133/62 03/29/24 00:15 133/62 03/29/24 00:15 68 15 95 03/29/24 00:12 73 15 95 03/29/24 00:00 122/62 03/29/24 00:00 122/62 03/29/24 00:00 122/62 03/29/24 00:00 81 14 97 03/28/24 23:45 133/59 L 03/28/24 23:45 133/59 L 03/28/24 23:45 133/59 L 03/28/24 23:45 71 16 95 03/28/24 23:30 71 15 96 03/28/24 23:30 130/60 03/28/24 23:30 130/60 03/28/24 23:27 72 16 96 03/28/24 23:15 135/63 03/28/24 23:15 135/63 03/28/24 23:12 70 16 96 03/28/24 23:03 73 15 95 03/28/24 23:00 131/61 03/28/24 23:00 131/61 Exam (Neuro) Physical Exam: She is awake and alert. Speech is without aphasia or dysarthria. Mood and affect are normal and appropriate. Thought processes are intact with good long and short-term memory. Extraocular eye muscles are intact without nystagmus. There is no facial droop. Tongue is midline. Coordination is normal in the arms without tremor or ataxia. There are no abnormal involuntary movements. Motor strength is 5/5 diffusely in all major muscle groups arms leg both proximally distally. Stance sitting in the chair is normal. PG Care Time/CCT Total # of Minutes Spent Total Time Spent with Patient: Total time spent is greater than 50% in coordination of care (as documented) at patient's floor/unit and/or counseling patient: Coding Level of Care Code 17384 SUB INP/OBS CARE 3/50MIN Diagnoses Altered mental status R41.82 Seizure-like activity R56.9 PRES (posterior reversible encephalopathy syndrome) I67.83 Time Spent (min) 50
--- NOTE | 2024-03-29 12:32 | Hospitalist Progress Note ---
Date of Service March 29, 2024 Assessment & Plan (1) Altered mental status: Plan: Resolved Code purple called the evening of 03/27/2024. Patient evaluated and intubated for airway management secondary to unresponsiveness CT of the head with 3.7 cm focus of encephalomalacia in the right parietal lobe. No hemorrhage or mass effect. No acute findings CTA of the head without vascular abnormality Managed overnight with propofol for sedation Neurology has been consulted and patient has been seen by Dr. Thomas MRI with evidence of PRES with significant T2/FLAIR signal are seen within the posterior parieto-occipital cortex and the cerebellum. Cerebellar function intact on exam. PRES most likely due to hypertension and analgesics Unclear if this was new stroke or seizure. Follow up in 4 weeks with neurology as an outpatient EEG with no evidence of epileptiform activity -patient loaded with Keppra 8:23 PM for 1500 mg Patient currently on Keppra 500mg IV BID Downgraded to telemetry 03/29/2024 am (2) Back pain: Plan: Patient admitted for pain control for back pain following helping family this past Saturday/Saturday (March 15) railroad tie and felt pain in mid upper back area and saw PCP this past and prescribed rx for Flexeril and prednisone x7 day course * Of note, patient did also test POSITIVE for COVID-19 on 03/17 with symptoms of sudden onset fatigue, ,headache, nonproductive course and hoarse voice. No SOB or post-nasal drip and was rx 7 day prednisone and tessalon pearls at that time Reports pain worsened with movement and + tenderness to palpation, however no extremity numbness/tingling or focal weakness on admission CT cervical spine w/ no fracture or subluxation, does note T1-T2 moderate to space narrowing, L1-L2 moderate to severe narrowing. No lower extremity symptoms or red flag symptoms Admitted for pain control, therapy evaluations. If worsening or + neuro sx, f/u MRI recommended but w/o red flag sx and sx present for < 1month CTA chest negative given +ddimer/recent COVID. Remains on Lovenox SQ for DVT prophylaxis MRI thoracic spine w/o fracture/subluxation. Does have degenerative changes most pronounced at T1-T2 level, moderate to severe bilateral neural foraminal narrowing but no central canal narrowing. normal cord signal. Dr White saw, muscular strain. ongoing pain control/therapy. no intervention. Ongoing issues over past 2 nights with pain control. Had significant improvement w/ scheduled baclofen and heating pad yesterday but ongoing pain overnight into this morning requiring IV opiates. Pain management consulted - s/p trigger point injections 03/27. - placed on medrol dose pack initially. Steroids discontinued and would avoid for now. Planning to arrange for TEA this upcoming week. Toradol available as well Continue heating pad, baclofen. Topical voltaren/lidocaine patch Does have elevated ESR/CRP, no evidence for pericarditis on EKG. Cards consulted - see note. Could have underlying rheumatological condition - outpt f/u pending ongoing management If pain improved and controlled with ORAL medicatoins overnight, plan for dc 03/28 with OUTPATIENT PT. NO LIFTING MORE THAN 5 LB. Lyme testing also +, Doxy BID started and would plan for 28 day course given prior tx 21 days for +IgM/IgG on screening (3) Elevated troponin: Plan: Elevated troponin 30.9 on high sensitivity testing on admission. Suspect demand ischemia in the setting of pain.No CP reported.?post viral. Did have recent + COVID testing less than [address] chest WITHOUT evidence for aortic abnormality EKG w/o acute ischemic findings, and repeat troponin trended DOWN --> 19.0 Telemetry with NSR 80s, occasional PAC She has not had any anterior chest pain, pain is all midline spine in her low back -- however see above, did obtain CT chest given recent COVID/elevated ddimer -- NEGATIVE ECHO obtained for completeness given family hx hypertrophic cardiomyopathy --> ECHO w/ normal LV size and function, EF 60-65%. RV is normal in size/function. Mild MR. RVSP is normal TRACE noncircumferential pericardial effusion (maximum depth few millimeters). NOT hemodynamically significant Lyme + as above Repeat trop 03/27/2024 for reports of discomfort but more MSK related. Trop was 27 but BP significantly elevated w/ pain and suspect demand. Cards consulted - see note. NOT felt cardiac in nature. NSR on telemetry No chest pain or tightness. Follow symptomatically (4) Positive Lyme disease serology: Plan: positive testing despite prior treatment, however both IgG/IgM positive and discussed w/ supervising provider. She did complete 21 day course for prior + testing on tick sent last year after removal started doxy 100mg BID on 03/24/2024, plan for 28 day course, follow up PCP ?contributing to current presentation Did add anaplasmosis/babesia smear to eval for any co-infection No evidence of red blood cell inclusions to suggest Babesia. However, this does not exclude the possibility of a Babesia infection. Specimen is being sent for PCR testing. (5) Hypertension: Plan: - Chronic, SIGNIFICANT ELEVATIONS WITH PAIN - Hydralazine IV PRN -Started on Amlodipine and losartan. Should follow up with cardiology as an outpatient for management -Hemodynamically stable at this time (6) Hypercholesterolemia: Plan: - Continue atorvastatin (7) Exercise-induced asthma: Plan: Recent rx for prednisone for +COVID as above and back following Ddimer +, Ct NEG for PE Had completed prednisone 40mg on 03/26 however pain management recs for medrol dose pack -- has been ordered 97% on RA, lungs CLEAR on EXAM, no wheezing Plan DVT proph: Lovenox SQ while inpatient s/p trigger point injections and plans for outpatient pain management. (Ms Hooper's is Navarro Xie's 's aunt) Admission and Anticipated Discharge Date Admission Date: March 25, 2024 Supervising Physician Co-Signing Physician Notes The patient was not seen by me. The chart was reviewed. Case discussed with JEYSON Jansen. Agree with assessment and plan Subjective Attending: Dr. Wang Patient awake and alert and feeling well today. She denies headache. Blurred vision is improved. No diplopia. Back pain is well-controlled overnight with morphine and oxycodone. No neurological deficits. Blood pressure is corrected and is 142/82. Nicardipine drip has been stopped. Patient started on losartan and amlodipine. MRI of the brain March 28, showed signal changes in the posterior parietal occipital head region and cerebellum consistent with posterior reversible encephalopathy syndrome (PRES). There was no evidence of acute stroke. 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 EEG March 28, showed generalized slowing but no focal findings or potentially epileptogenic discharges Patient was positive for COVID 03/17/2024 Positive for Lyme disease screening as well as IgG and IgM confirmation. Currently on doxycycline 100 mg twice daily for anticipated treatment of 4 weeks Physical examination today with no neurological deficits identified. Review of Systems 2 Review of Systems: A total of 10 systems was reviewed and is negative other than as listed in the HPI Physical Exam 2 Physical Exam: GENERAL : No acute distress EYES: No icterus, gaze conjugate NOSE: No evidence of epistaxis MOUTH: No lesions or candidiasis NECK: Supple LUNGS: CTA B/L, no wheezes, rales or rhonchi HEART: Regular, rate controlled ABDOMEN: Soft, NT, ND, BS Present EXTREMITIES: No LE edema, pedal pulses intact NEURO: A&OX3. Negative pronator drift. Deep tendon reflexes of the patellar tendons, brachioradialis, and bicep tendons 2/4 bilaterally. Strength equal and appropriate bilaterally. Cerebellar function intact with [id number], rapid only movements, [id number]. Toes are downgoing bilaterally. Pupils equal round and reactive to light. Gaze is conjugate. Tongue is midline. No slurred speech. No facial droop. No appreciation of any focal deficits. Results & Data Results & Data Vital Signs (Past 12 Hours) Vital Signs Pulse Resp BP Pulse Ox 03/29/24 10:03 142/82 H 03/29/24 10:03 85 16 03/29/24 09:09 98 H 23 03/29/24 08:06 90 23 03/29/24 08:00 131/03/29/24 08:00 131/03/29/24 08:00 131/03/29/24 07:57 91 H 23 03/29/24 07:51 147/77 H 03/29/24 07:51 147/77 H 03/29/24 07:39 93 H 21 96 03/29/24 07:02 83 18 96 03/29/24 07:00 137/67 03/29/24 07:00 137/67 03/29/24 07:00 137/67 03/29/24 06:38 73 15 95 03/29/24 06:32 76 17 95 03/29/24 06:26 71 29 H 96 03/29/24 06:22 138/63 03/29/24 06:22 138/63 03/29/24 06:17 68 15 95 03/29/24 06:02 75 11 L 96 03/29/24 05:50 69 9 L 95 03/29/24 05:47 70 10 L 94 03/29/24 05:39 70 9 L 95 03/29/24 05:20 76 13 95 03/29/24 05:14 135/66 03/29/24 05:14 135/66 03/29/24 05:14 135/66 03/29/24 05:14 85 14 97 03/29/24 05:11 72 11 L 95 03/29/24 05:05 68 10 L 95 03/29/24 04:56 70 8 L 95 03/29/24 04:47 69 14 96 03/29/24 04:35 71 16 95 03/29/24 04:20 67 15 95 03/29/24 04:01 135/74 03/29/24 04:01 135/74 03/29/24 04:00 69 12 96 03/29/24 03:59 68 15 96 03/29/24 03:44 67 14 95 03/29/24 03:21 68 11 L 96 03/29/24 03:12 67 11 L 95 03/29/24 03:00 141/60 H 03/29/24 02:54 70 16 96 03/29/24 02:30 68 6 L 94 03/29/24 02:21 80 4 L 87 L 03/29/24 02:15 81 19 99 03/29/24 02:03 72 9 L 99 03/29/24 02:00 151/68 H 03/29/24 01:48 73 13 96 03/29/24 01:42 72 13 96 03/29/24 01:30 73 15 99 03/29/24 01:15 79 14 98 03/29/24 01:00 139/66 03/29/24 00:54 77 14 95 03/29/24 00:45 138/64 03/29/24 00:45 138/64 03/29/24 00:45 138/64 03/29/24 00:42 80 13 96 03/29/24 00:39 76 12 96 03/29/24 00:30 137/66 03/29/24 00:27 70 17 95 03/29/24 00:15 133/62 03/29/24 00:15 133/62 03/29/24 00:15 68 15 95 03/29/24 00:12 73 15 95 Laboratory Results 03/29/24 04:03/29/24 04:24 Diagnostic Findings Brain MRI 03/28/24 09:06 MRI OF THE BRAIN COMBO CLINICAL HISTORY: Encephalopathy. COMPARISON STUDY: CT of the brain dated 03/28/2024. TECHNIQUE: MRI of the brain was performed utilizing various T1 and T2-weighted sequences in the axial, sagittal, and coronal planes. Contrast-enhanced sequences were acquired following the administration of 6.5 cc of Gadavist. FINDINGS: Brain parenchyma: There is significant T2/FLAIR signal abnormality seen involving the posterior parieto-occipital cortex. This vessel and the coronal FLAIR sequences. There are some apparent signal abnormality in the cerebellum. There is no associated stricture diffusion or abnormal postcontrast enhancement. A focus of right parietal encephalomalacia is unchanged and consistent with a remote insult. There is no hemorrhage or mass effect. There is no restricted diffusion typical for acute ischemia. No enhancing mass lesion is identified on the postcontrast images. No extra-axial fluid collection is seen. The cerebellar tonsils are normal in configuration. Ventricles, sulci, and cisterns: Normal in configuration. Pituitary and sella: Unremarkable. Intracranial vasculature: Normal flow voids are maintained at the skull base. Orbits: The bony orbits are grossly intact. Orbital contents are normal in appearance. Sinuses and mastoids: There is trace mucosal thickening within the ethmoid sinuses. The remaining paranasal sinuses are clear. Secretions are noted in the pharynx. The mastoid air cells are well pneumatized. Calvarium: Postsurgical changes seen on the right convexity. No destructive calvarial lesion is identified. Cervical cord: Partially visualized cervical spinal cord is normal in morphology and signal intensity. IMPRESSION: 1. There is no hemorrhage, enhancing mass, or evidence of acute ischemia. 2. There is significant T2/FLAIR signal are seen within the posterior parieto- occipital cortex and the cerebellum. The distribution strongly favors PRES (posterior reversible encephalopathy syndrome). A nonspecific encephalitis/cerebritis of other etiology could potentially appear similar. Clinical correlation will be essential. 3. Additional findings as above. Findings were discussed with Dr. Ng at the time of interpretation. ACT 112: Negative or not required by law. Electronically signed by: Augie Agrawal M.D. 03/28/2024 12:45 PM Exam(s): CT HEAD Without Contrast 03/28/2024 EXAM: CT Head Without Intravenous Contrast CLINICAL HISTORY: Reason for exam: AMS. TECHNIQUE: Axial computed tomography images of the head/brain without intravenous contrast. CTDI is 71.02 mGy and DLP is 702.46 mGy-cm. Automated exposure control was utilized for the study. A dose lowering technique was utilized adhering to the principles of ALARA. COMPARISON: No relevant prior studies available. FINDINGS: Brain: There is a 3.7 cm focus of encephalomalacia in the right parietal lobe. No hemorrhage. No significant white matter disease. Ventricles: Unremarkable. No ventriculomegaly. Bones/joints: Unremarkable. No acute fracture. Soft tissues: Unremarkable. Sinuses: Unremarkable as visualized. No acute sinusitis. Mastoid air cells: Unremarkable as visualized. No mastoid effusion. IMPRESSION: No acute intracranial abnormality Electronically signed by: Edu Gallagher MD 03/28/24 08:01 AM Dictated: 03/28/24 0801 Transcribed: 03/28/24 0801 L PG Care Time/CCT Total # of Minutes Spent Total Time Spent with Patient: Total time spent is greater than 50% in coordination of care (as documented) at patient's floor/unit and/or counseling patient:35 minutes including discussion with other providers and chart review Coding Level of Care Code 02779 SUB INP/OBS CARE 2/35MIN Diagnoses Altered mental status R41.82 Back pain M54.9 Elevated troponin R79.89 Positive Lyme disease serology R76.8 Primary hypertension I10 Hypertension type: primary hypertension Hypercholesterolemia E78.00 Exercise-induced asthma J45.990 Time Spent (min) 35 (5) Hypertension Hypertension type: primary hypertension Qualified Code(s): I10 - Essential (primary) hypertension
[2024-03-29 16:18] LABS: 7-Aminoclonaz, Confirm NEGATIVE ng/mL (<25); Hydro-Alp Ur, GC/MS NEGATIVE ng/mL (<25); Hydroxyethylflurazepam, Conf NEGATIVE ng/mL (<50); Hydroxymidazolam Ur, GC/MS >2000 ng/mL (<50); Hydroxytriazolam NEGATIVE ng/mL (<50); Lorazepam, Ur GC/MS NEGATIVE ng/mL (<50); Nordiazepam, Confirm NEGATIVE ng/mL (<50); Oxazepam Ur, GC/MS NEGATIVE ng/mL (<50); Temazepam, Confirm NEGATIVE ng/mL (<50)
[2024-03-30 04:57] LABS: Basophils # (auto) 0.07 K/uL (0.00-0.20); Basophils % (auto) 0.7 %; Eosinophils # (auto) 0.06 K/uL (0.00-0.50); Eosinophils % (auto) 0.6 %; Hemoglobin 12.8 g/dl (12.0-16.0); Lymphocytes # (auto) 2.48 K/uL (1.20-3.40); Lymphocytes % (auto) 25.2 %; Mean Corpuscular Hemoglobin 26.3 pg (25.0-34.0); Mean Corpuscular Volume 82.3 fL (80.0-100.0); Mean Platelet Volume 9.4 fL (9.4-12.4); Monocytes # (auto) 0.79 K/uL (0.11-0.59); Neutrophils # (auto) 6.24 K/uL (1.40-6.50); Neutrophils % (auto) 63.5 %; Platelet Count 401 K/uL (130-400); RDW Coefficient of Variation 14.8 % (11.5-14.5); RDW Standard Deviation 44.5 fL (36.4-46.3); Red Blood Count 4.86 M/uL (4.20-5.40); White Blood Count 9.84 K/ul (4.8-10.8)
[2024-03-30 05:21] LABS: BUN Creatinine Ratio 25.2 (10-20); Creatinine Clr Calc Pharmacy 46.5 ml/min; Est GFR (African American) 64.2 ml/min; Est GFR (Non-African American) 55.4 ml/min; Magnesium 2.1 mg/dl (1.7-2.4); Phosphorus 3.7 mg/dl (2.5-4.9); Potassium 4.5 mmol/L (3.5-5.1)
[2024-03-30] MEDS ORDERED: methylPREDNISolone 4 MG TAB PO SCH (07:00)
--- NOTE | 2024-03-30 07:54 | Hospitalist Progress Note ---
<Statement entered by Germania Anders MD - 03/30/24 14:13> I have reviewed vital signs, chart notes, labs and imaging. I have personally seen, evaluated and examined the patient. I have also discussed the management of the patient with the VIOLETA and I agree with the exam findings documented in the history and physical examination and the documented assessment and plan unless otherwise stated below. I saw her early this morning and she was awake and alert pain was well- controlled her blood pressure was quite high at 190s over high 90s however she had not had her morning medications yet. After morning medicines for pain control and blood pressure were given her blood pressure was well-controlled 123/64 midday. Home maybe tomorrow if pain, BP controlled and follow up with pain clinic and neurology. Date of Service March 30, 2024 Assessment & Plan (1) Altered mental status: Plan: Resolved Code anna called the evening of 03/27/2024. Patient evaluated and intubated for airway management secondary to unresponsiveness CT of the head with 3.7 cm focus of encephalomalacia in the right parietal lobe. No hemorrhage or mass effect. No acute findings CTA of the head without vascular abnormality Managed overnight with propofol for sedation Neurology has been consulted and patient has been seen by Dr. Thomas MRI with evidence of PRES with significant T2/FLAIR signal are seen within the posterior parieto-occipital cortex and the cerebellum. Cerebellar function intact on exam. PRES most likely due to hypertension and analgesics Unclear if this was new stroke or seizure. Follow up in 4 weeks with neurology as an outpatient EEG with no evidence of epileptiform activity -patient loaded with Keppra 8:23 PM for 1500 mg Patient currently on Keppra 500mg IV BID Downgraded to telemetry 03/29/2024 am 03/30 - BP 144/65 however elevated 191/98 on repeat Initially Losartan/amlodipine continued and planned for additional 2.5mg PO amlodipine however prior to morning meds and pain medication and 156/52 on repeat and continued current dose amlodipine/losartan for now. Monitor for need to increase. No increased LE edema on exam - Doxy BID, can convert to PO BID, plan 4 wk course - Keppra 500mg IV BID, will plan to convert to PO. Plan to continue 500mg PO BID until seen in clinic. - Pain control tylenol, oxycodone, morphine as needed. Baclofen TID continued Continued inpatient stay, switching IV meds to PO. Consider dc in next 24-48 hours if remaining stable with oral meds for pain control and no further issues. (2) Back pain: Plan: Patient admitted for pain control for back pain following helping family this past Saturday/Saturday (March 15) railroad tie and felt pain in mid upper back area and saw PCP this past and prescribed rx for Flexeril and prednisone x7 day course * Of note, patient did also test POSITIVE for COVID-19 on 03/17 with symptoms of sudden onset fatigue, ,headache, nonproductive course and hoarse voice. No SOB or post-nasal drip and was rx 7 day prednisone and tessalon pearls at that time Reports pain worsened with movement and + tenderness to palpation, however no extremity numbness/tingling or focal weakness on admission CT cervical spine w/ no fracture or subluxation, does note T1-T2 moderate to space narrowing, L1-L2 moderate to severe narrowing. No lower extremity symptoms or red flag symptoms Admitted for pain control, therapy evaluations. If worsening or + neuro sx, f/u MRI recommended but w/o red flag sx and sx present for < 1month CTA chest negative given +ddimer/recent COVID. Remains on Lovenox SQ for DVT prophylaxis MRI thoracic spine w/o fracture/subluxation. Does have degenerative changes most pronounced at T1-T2 level, moderate to severe bilateral neural foraminal narrowing but no central canal narrowing. normal cord signal. Dr White saw, muscular strain. ongoing pain control/therapy. no intervention. Ongoing issues over past 2 nights with pain control. Had significant improvement w/ scheduled baclofen and heating pad yesterday but ongoing pain overnight into this morning requiring IV opiates. Pain management consulted - s/p trigger point injections 03/27. - placed on medrol dose pack initially. Steroids discontinued and would avoid for now. Planning to arrange for TEA this upcoming week. Continue heating pad, baclofen. Topical voltaren/lidocaine patch Does have elevated ESR/CRP, no evidence for pericarditis on EKG. Cards consulted - see note. Could have underlying rheumatological condition - outpt f/u pending ongoing management No lifting more than 5lb Ongoing pain control as outlined Doxy converted back to PO and plan for 4 wk course (3) Elevated troponin: Plan: Elevated troponin 30.9 on high sensitivity testing on admission. Suspect demand ischemia in the setting of pain.No CP reported.?post viral. Did have recent + COVID testing less than [address] chest WITHOUT evidence for aortic abnormality EKG w/o acute ischemic findings, and repeat troponin trended DOWN --> 19.0 Telemetry with NSR 80s, occasional PAC She has not had any anterior chest pain, pain is all midline spine in her low back -- however see above, did obtain CT chest given recent COVID/elevated ddimer -- NEGATIVE ECHO obtained for completeness given family hx hypertrophic cardiomyopathy --> ECHO w/ normal LV size and function, EF 60-65%. RV is normal in size/function. Mild MR. RVSP is normal TRACE noncircumferential pericardial effusion (maximum depth few millimeters). NOT hemodynamically significant Lyme + as above Repeat trop 03/27/2024 for reports of discomfort but more MSK related. Trop was 27 but BP significantly elevated w/ pain and suspect demand. Cards consulted - see note. NOT felt cardiac in nature. NSR on telemetry No chest pain or tightness. Follow symptomatically (4) Positive Lyme disease serology: Plan: positive testing despite prior treatment, however both IgG/IgM positive and discussed w/ supervising provider. She did complete 21 day course for prior + testing on tick sent last year after removal started doxy 100mg BID on 03/24/2024, plan for 28 day course, follow up PCP ?contributing to current presentation Did add anaplasmosis/babesia smear to eval for any co-infection No evidence of red blood cell inclusions to suggest Babesia. However, this does not exclude the possibility of a Babesia infection. Specimen is being sent for PCR testing. (5) Hypertension: Plan: - Chronic, SIGNIFICANT ELEVATIONS WITH PAIN - Hydralazine IV PRN -Started on Amlodipine and losartan. Should follow up with cardiology as an outpatient for management -Hemodynamically stable at this time (6) Hypercholesterolemia: Plan: - Continue atorvastatin (7) Exercise-induced asthma: Plan: Recent rx for prednisone for +COVID as above and back following Ddimer +, Ct NEG for PE Had completed prednisone 40mg on 03/26 however pain management recs for medrol dose pack -- has been ordered 97% on RA, lungs CLEAR on EXAM, no wheezing Plan DVT proph: Lovenox SQ while inpatient Continued inpatient stay, downgraded to PCU and remaining stable. BPs stable/improved with amlodipine. Switching IV doxy/keppra to PO and planning to complete 4 wks w/ Doxy and should be continued on Keppra BID until seen Dr Thomas/Neuro in follow up per discussion this morning Admission and Anticipated Discharge Date Admission Date: March 25, 2024 Subjective Evaluated this morning. BP elevated 2nd to pain and had initially ordered additional amlodipine but had not gotten am meds. After pain medication and AM medications, BP 156/52 and holding off extra amldodpine. Pain rated 2/10 presently. Discussed changing over IV medications to PO and monitoring overnight w/ pain and on PO prior to possible considering discharge. No fever/chills, chest pain, shortness of breath. No headache/blurred vision reported. Keppra to change to PO, discussed neuro wanting to be continued x 4 weeks until seen in follow up. Agreeable to plan. Appears much better than last week, pain is tolerable. Questions/concerns addressed at this time. Physical Exam Physical Exam: General: 68 yo female, sitting in bed upon arrival, NAD, appears in good spirits, back pain improved/stable HEENT: head atraumatic, normocephalic, mmm, trachea midline Resp: even/unlabored, no w/c/r, on room air CV: RRR, no significant mrg, no pitting edema/calf tenderness GI +BS, soft, less distension, nontender MSK/Neuro:+tenderness to thoracic spine/paraspinal muscle, significant muscle tightness on the R>L. Lidocaine patch in place No LE weakness, NVI, pulses present Extremities: Moving all extremities equally. [employer] strength, hip flexion, ankle dorsiflexion/plantarflexion are 5/5 and symmetrical. No sensory deficits Psych: AOx3, cooperative with exam Results & Data Results & Data Vital Signs (Past 12 Hours) Vital Signs Temp Pulse Pulse Resp BP BP Pulse Ox 03/30/24 07:38 90 03/30/24 03:05 36.4 C L 74 15 144/65 H 98 03/29/24 22:55 80 03/29/24 22:11 36.5 C 82 17 144/71 H 98 O2 Del Method 03/30/24 07:38 03/30/24 03:05 Room Air 03/29/24 22:55 03/29/24 22:11 Room Air Laboratory Results 03/30/24 03/28/24 Range/Units 04:17 Unknown WBC 9.84 (4.8-10.8) K/ul RBC 4.86 (4.20-5.40) M/uL Hgb 12.8 (12.0-16.0) g/dl Hct 40.0 (37.0-47.0) % MCV 82.3 (80.0-100.0) fL MCH 26.3 (25.0-34.0) pg MCHC 32.0 (32.0-36.0) g/dL RDW Std Deviation 44.5 (36.4-46.3) fL RDW Coeff of Chadwick 14.8 H (11.5-14.5) % Plt Count 401 H (130-400) K/uL MPV 9.4 (9.4-12.4) fL Immature Gran % (Auto) 2.0 % Neut % (Auto) 63.5 % Lymph % (Auto) 25.2 % Wythe % (Auto) 8.0 % Eos % (Auto) 0.6 % Baso % (Auto) 0.7 % Neut # (Auto) 6.24 (1.40-6.50) K/uL Lymph # (Auto) 2.48 (1.20-3.40) K/uL Wythe # (Auto) 0.79 H (0.11-0.59) K/uL Eos # (Auto) 0.06 (0.00-0.50) K/uL Baso # (Auto) 0.07 (0.00-0.20) K/uL Immature Gran # (Auto) 0.20 (0.01-0.20) K/uL Sodium 137 (136-145) mmol/L Potassium 4.5 (3.5-5.1) mmol/L Chloride 103 (98-107) mmol/L Carbon Dioxide 29 (21-32) mmol/L Anion Gap 5 (3-11) BUN 26 H (6-23) mg/dl Creatinine 1.03 (0.6-1.2) mg/dl Est Cr Clr Drug Dosing 46.5 ml/min Est GFR ( Amer) 64.2 ml/min Est GFR (Non-Af Amer) 55.4 ml/min BUN/Creatinine Ratio 25.2 H (10-20) Glucose 99 (70-99(Fasting)) mg/dl Calcium 9.0 (8.6-10.3) mg/dl Phosphorus 3.7 (2.5-4.9) mg/dl Magnesium 2.1 (1.7-2.4) mg/dl U OH-Alprazolam Confrm NEGATIVE (<25) ng/mL 7-Amino Clonazepam NEGATIVE (<25) ng/mL Ur Nordiazepam Confirm NEGATIVE (<50) ng/mL U OH-ethylflurazepam NEGATIVE (<50) ng/mL U Lorazepam Cnf GC/MS NEGATIVE (<50) ng/mL U Oxazepam Confm GC/MS NEGATIVE (<50) ng/mL Ur Temazepam Confirm NEGATIVE (<50) ng/mL U OH-Triazolam Confirm NEGATIVE (<50) ng/mL U OH-Midazolam Confirm >2000 H (<50) ng/mL Drug Screen Comment SEE NOTE PG Care Time/CCT Total # of Minutes Spent Total Time Spent with Patient: Total time spent is greater than 50% in coordination of care (as documented) at patient's floor/unit and/or counseling patient: Coding Level of Care Code 94879 SUB INP/OBS CARE 3/50MIN Diagnoses Altered mental status R41.82 Back pain M54.9 Elevated troponin R79.89 Positive Lyme disease serology R76.8 Primary hypertension I10 Hypertension type: primary hypertension Hypercholesterolemia E78.00 Exercise-induced asthma J45.990 (5) Hypertension Hypertension type: primary hypertension Qualified Code(s): I10 - Essential (primary) hypertension
[2024-03-30] MEDS: amLODIPine BESYLATE 5 MG TAB PO ONE (09:04)
--- NOTE | 2024-03-30 10:50 | Communication Note ---
Date of Service: March 30, 2024 Pain management provider reached out and will plan to wait few weeks to let Ms Sheldon recover from PRES before TEA. David should help in interim. Can call Dr Álvarez with any questions/concerns.
--- NOTE | 2024-03-30 11:04 | Pain Management Progress Note ---
Date of Service March 30, 2024 Assessment & Plan (1) PRES (posterior reversible encephalopathy syndrome): (2) Seizure-like activity: (3) Altered mental status: (4) Intervertebral thoracic disc disorder: (5) Radicular pain of thoracic region: (6) Myofascial pain: (7) Positive Lyme disease serology: Plan 1. Events over the weekend noted. At this time, recommend she continue to recover from her PRES and complete her course of doxycycline given her positive Lyme serology. Interventional pain management has been put on hold for now. Her previously planned epidural steroid injection at T7-8 focal disc protrusion does not produce any significant central or neuroforaminal stenosis and is elective in nature. She may still have some benefit from trigger point injections which were performed 03/27/2024 as her administered steroid may not yet have taken effect. 2. Utilization of Keppra 500 mg p.o. twice daily may provide some neuropathic coverage for her pain. 3. Recommend continuation of baclofen, Lidoderm patch, and oxycodone as needed. 4. We will see her post discharge in our office for further coordination of care. 5. 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 She was provided with trigger point injections on 03/27/2024 which have provided modest benefit. She reports her pain continues to be sharp and spasm in character rated at 5 out of 10. She additionally has a history of COVID +2 weeks ago and Lyme positive serology with initiation of doxycycline. On the morning of 03/28/2024 she was found unresponsive in her bed at 4:45 AM and diagnosis of PRES was made. She is subsequently extubated and awake alert and conversant in the ICU on examination today. Medicine continues to work on blood pressure control and is utilizing Keppra for seizure prophylaxis at this time. She has no other constitutional complaints at this time. Pain Assessment Pain Assessment Full Body Front + Back: 2 1. [facility] Combined Pain Scale: 5-Moderate - Cannot perform normal tasks without increase in pain Physical Exam 2 Physical Exam: General: Patient sitting quietly in her ICU hospital bed in no acute distress. Speech and thought process appropriate. Mood and affect appropriate. Cognition intact. Head: Normocephalic and atraumatic. Eyes: Pupils equal round reactive to light. Neck: Supple without adenopathy and full range of motion. Thoracic spine: Normal to inspection nontender over the midline without facet tenderness. Minimal spasm noted. Lower extremities: Gross strength testing 5/5 in all 4 extremities equal throughout. Sensation intact Neurologic: Cranial nerves grossly intact. Ambulatory function not observed Results (Pain Clinic) Diagnostic Review MRI Findings: 03/25/24 THORACIC SPINE MRI HISTORY: injury, uncontrolled/worsened back pain TECHNIQUE: Multiplanar multisequence MRI of the thoracic spine was performed without the use of contrast. COMPARISON: CT thoracic spine 03/23/2024. FINDINGS: Localizer images demonstrate a 3.4 cm defect within the right parietal lobe which could be due to an old infarct or old postoperative change. This is only partially imaged on this study. No acute fractures of fixation within the thoracic spine. A T3 vertebral body hemangioma is noted. No suspicious osseous lesions. Moderate disc space narrowing at T1-T2 with a broad-based posterior disc bulge asymmetric to the right. No significant central canal narrowing. There is moderate to severe bilateral neural foraminal narrowing. Broad-based posterior disc bulge at T2-T3 without significant central canal or neural foraminal narrowing. There is a 3 mm left paracentral focal disc protrusion at T7-T8 without significant central canal or neural foraminal narrowing. Nondisplaced. The mid thoracic spine is noted. There are severe disc space narrowing at L5-S1 with a broad-based posterior disc bulge. No significant central canal narrowing at this level. The conus terminates at the T12-L1 disc space level. The thoracic spinal cord is normal and course, caliber, and signal intensity. Paravertebral soft tissues are unremarkable. No epidural fluid collections. Degenerative changes within the cervical spine are noted. IMPRESSION: 1. No fracture or subluxation within the thoracic spine. 2. Degenerative changes as described above most pronounced at the T1-T2 level. This demonstrates moderate to severe bilateral neural foraminal narrowing. 3. No significant central canal narrowing within the thoracic spine. 4. Normal signal intensity within the thoracic spinal cord. 03/28/24 MRI OF THE BRAIN COMBO CLINICAL HISTORY: Encephalopathy. COMPARISON STUDY: CT of the brain dated 03/28/2024. TECHNIQUE: MRI of the brain was performed utilizing various T1 and T2-weighted sequences in the axial, sagittal, and coronal planes. Contrast-enhanced sequences were acquired following the administration of 6.5 cc of Gadavist. FINDINGS: Brain parenchyma: There is significant T2/FLAIR signal abnormality seen involving the posterior parieto-occipital cortex. This vessel and the coronal FLAIR sequences. There are some apparent signal abnormality in the cerebellum. There is no associated stricture diffusion or abnormal postcontrast enhancement. A focus of right parietal encephalomalacia is unchanged and consistent with a remote insult. There is no hemorrhage or mass effect. There is no restricted diffusion typical for acute ischemia. No enhancing mass lesion is identified on the postcontrast images. No extra-axial fluid collection is seen. The cerebellar tonsils are normal in configuration. Ventricles, sulci, and cisterns: Normal in configuration. Pituitary and sella: Unremarkable. Intracranial vasculature: Normal flow voids are maintained at the skull base. Orbits: The bony orbits are grossly intact. Orbital contents are normal in appearance. Sinuses and mastoids: There is trace mucosal thickening within the ethmoid sinuses. The remaining paranasal sinuses are clear. Secretions are noted in the pharynx. The mastoid air cells are well pneumatized. Calvarium: Postsurgical changes seen on the right convexity. No destructive calvarial lesion is identified. Cervical cord: Partially visualized cervical spinal cord is normal in morphology and signal intensity. IMPRESSION: 1. There is no hemorrhage, enhancing mass, or evidence of acute ischemia. 2. There is significant T2/FLAIR signal are seen within the posterior parieto- occipital cortex and the cerebellum. The distribution strongly favors PRES (posterior reversible encephalopathy syndrome). A nonspecific encephalitis/cerebritis of other etiology could potentially appear similar. Clinical correlation will be essential. 3. Additional findings as above. Previous Records Review Previous Records: personally reviewed by me
[2024-03-30] MEDS: levETIRAcetam 500 MG TAB PO SCH (20:06)
[2024-03-30] MEDS: DOXYCYCLINE HYCLATE 100 MG CAP PO SCH (20:07)
[2024-03-31 05:12] LABS: Basophils # (auto) 0.06 K/uL (0.00-0.20); Basophils % (auto) 0.7 %; Eosinophils % (auto) 1.2 %; Hematocrit (blood only) 37.3 % (37.0-47.0); Hemoglobin 12.3 g/dl (12.0-16.0); Immature Granulocytes # (auto) 0.17 K/uL (0.01-0.20); Immature Granulocytes % (auto) 2.1 %; Lymphocytes # (auto) 2.65 K/uL (1.20-3.40); Lymphocytes % (auto) 32.2 %; Mean Platelet Volume 9.6 fL (9.4-12.4); Monocytes # (auto) 0.76 K/uL (0.11-0.59); Monocytes % (auto) 9.2 %; Neutrophils # (auto) 4.49 K/uL (1.40-6.50); Neutrophils % (auto) 54.6 %; Platelet Count 348 K/uL (130-400); RDW Coefficient of Variation 14.9 % (11.5-14.5); RDW Standard Deviation 44.6 fL (36.4-46.3); Red Blood Count 4.55 M/uL (4.20-5.40); White Blood Count 8.23 K/ul (4.8-10.8)
[2024-03-31 05:38] LABS: BUN Creatinine Ratio 29.9 (10-20); Calcium 8.9 mg/dl (8.6-10.3); Creatinine Clr Calc Pharmacy 62.2 ml/min; Est GFR (African American) 91.3 ml/min; Est GFR (Non-African American) 78.8 ml/min; Magnesium 2.1 mg/dl (1.7-2.4); Phosphorus 3.7 mg/dl (2.5-4.9); Potassium 4.1 mmol/L (3.5-5.1)
[2024-03-31] MEDS ORDERED: methylPREDNISolone 4 MG TAB PO SCH (07:00)
[2024-03-31 08:58] VITALS: TEMP 98.1
[2024-03-31 10:22] LABS: Babesia microti DNA Not Detected (Not Detected)
[2024-03-31 12:15] VITALS: BP 122/59; PULSE 61; RESP 14; O2SAT 98
--- NOTE | 2024-03-31 15:55 | Discharge Summary ---
Discharge Summary Date of Service date of admission - March 23, 2024 date of discharge - March 31, 2024 Principal Dx & Hospital Course #1 = Principal Diagnosis (1) PRES (posterior reversible encephalopathy syndrome): On 03/28/24 at ~0445am the patient was found unresponsive in her bed. A Code Purple was called at that time. Due to concern for lack of airway protection in the setting of her severely altered mental status she was intubated acutely by the ER attending. Transferred to ICU at that time. Telestroke consult was obtained. Standard stroke work-up was initiated including CTA head/neck, MRI brain, etc. MRI brain showed the following - * focus of right sided parietal encephalomalacia (may be related to an old head injury at age 2) * T2/FLAIR signal in a distribution concerning for PRES Following admission to the ICU she only required a brief time on the vent. She was started on Keppra 500mg BID in the event she had had an unwitnessed seizure. EEG was obtained and this did not show a seizure focus, however. A review of her BPs in the 24 hours leading up to her code Purple showed markedly elevated BPs (180-200 systolic and higher). The patient's mental status improved nicely over the next 1-2 days following the above. She was released from the ICU back to the floor on 03/29/24. By time of discharge her BPs were normal and her mental status was also normal. Suspect that her PRES was precipitated by uncontrolled HTN. Again her BPs may have been high due to severe back pain. [facility] Neurology advised follow-up with them in about 1 month post-discharge. She will continue on Keppra 500mg PO BID at home. She should NOT drive unless neurology gives clearance to do so. (2) Altered mental status: 2nd to PRES. See #1 above. Resolved. Mental status was at baseline at time of hospital discharge. (3) Back pain: Patient was initially admitted to [facility] for pain control for acute back pain following a back injury after helping her family on March 15. She had helped lift a railroad tie and felt pain in the mid upper back area since that time. Saw her PCP for the pain and was prescribed Flexeril and prednisone x 7 day course for such. Despite these medicines her back pain persisted. CT cervical spine without fracture or subluxation. Thoracic spine imaging noted T1-T2 moderate disc space narrowing. There were other levels of degeneration as well including moderate-severe disc space narrowing at L1-L2. Following admission she was seen by ortho-spine, Dr Jose Maria White, along with [facility] Pain Management. Dr White felt that the majority of her pain was from a thoracic muscular strain. Nothing surgical was present. Pain management provided trigger point injections in her back on 03/27/24. By time of discharge her back pain was still present but had improved in comparison to admission. Discharge medications - oxycodone prn, baclofen prn, OTC salonpas, OTC tylenol. If her back pain persists she can f/u with [facility] Pain Management for additional Rx. (4) Positive Lyme disease serology: Lyme IgM and IgG were both positive She was initiated on doxycycline twice daily while here Neurology advised a full 4-week course of doxycycline for the Lyme (in the event she had early disseminated Lyme including [employer] involvement) Discharged to home on such (5) Elevated troponin: Peak HS troponin was <100 Echocardiogram showed preserved EF with normal LV wall motion along with a trace pericardial effusion Seen by cardiology - the elevated troponin was felt 2nd to myocardial demand ischemia rather than ACS or acute pericarditis Trace pericardial effusion may have been a remnant from her recent COVID-19 infection No further w/u was advised by cardiology (6) COVID-19: Had COVID in mid-March 2024 (dx 03/17/24). Symptoms at that time - fatigue, headache, nonproductive cough. No radiographic evidence of any COVID pneumonia upon admission. No obvious residual COVID symptoms during this admission. (7) Hypertension: BPs were markedly elevated early in the stay. Some of the elevations may have been due to back pain. Regardless amlodipine 5mg daily was added to her losartan 50mg daily. (8) GERD (gastroesophageal reflux disease): Can take OTC pepcid or omeprazole prn for GERD symptoms. (9) Pulmonary nodule: 3 mm nodule within the right lung apex - seen incidentally on CTA chest Fleischner criteria recommendations for follow-up of incidental CT nodules --> Solitary nodule size: <6 mm * Low risk patients: no follow-up needed * High risk patients: optional CT at 12 months Notes For Next Care Provider * Patient voiced that she may seek out an outside neurology opinion at [facility] or [facility]. A CD was burned for the patient containing her MRI brain, etc. * 3mm right upper lobe pulmonary nodule seen - may need repeat CT in 12 months Medication Changes From Visit 1. Keppra 500mg BID 2. Doxycycline 100mg BID x 25 years 3. Baclofen prn, oxycodone prn for back pain (scripts given) Admission HPI Per Admitting Provider Brittney Sheldon is a 68-year-old female with a past medical history of of hypertension, exercise-induced asthma, GERD who presents to the ER by private vehicle with back discomfort. She reports her back pain began 1 week ago after she was lifting a railroad tie. Since that time has had mid upper back severe pain and tension. She has trialed muscle relaxers and prednisone with a little relief for around a day, but then pain has subsequently progressed. Hot showers help but again pain has currently escalated 2 out of 10/10. Pain is better with rest and when not moving, movement reproduces 10/10 pain in her back. No prior history of back injuries. She is initially recommended for evaluation for potential cardiac disease with a elevated troponin of 30.9; no EKG changes. Repeat troponin was downtrending at 19. She does have a family history of hypertrophic cardiomyopathy. Case was reviewed with cardiology, low risk for ischemic/cardiac pain and heart issues with normal appearance on CT. Patient was not felt to have high risk ischemic disease and okay for discharge, her pain was likely musculoskeletal. Patient was being prepared for discharge however due to her severe spasms does not feel that she is able to adequately ambulate at home, and does not feel that she is able to be discharged and was subsequently referred for pain control. CTchest with contrast did not show any evidence of dissection or aortic abnormality. CTC-spine was obtained due to severity of patient's pain. This did not show evidence of fracture or subluxation. Moderate T1-T2 disc space narrowing. Moderate to severe to space narrowing at L1-L2. No central canal stenosis noted. Brittney reprots she did not feel a pop/snap or anything like that after lifting the railroad tie, but had progressively worsening pain. Pred/cyclobenzaprine only helped for a day, then had progressive pain again. Last two nights have been intolerable to her. "I haven't slept at all, as soon as I get into one position I have to switch or get into the chair." Takes alieve q12h 220mg, last dose 5am this morning. Hot shower helps No numbness/tingling. No weakness in the arms or legs, but the pain causes spasms and doesnt want to move her arms to risk aggravating her back No fever, chills, or sweats Peeing normally 6/10 currently after ER medicaitons. Medical History: Reviewed Medications: Reviewed Surgical History: Reviewed Family history: Reviewed Allergies: Reviewed Social History: Reviewed. No tobacco product use. Social etoh use. Code Status: Full Discharge Exam gen - NAD, looks well mouth - MMM neck - no JVD heart - RRR, s1 s2, no murmur lungs - CTA b/l abd - soft NT ND BS+ ext - pulses 2+ b/l neuro - no facial droop; strength 5/5 x 4 exts; speech wnl psych - a/o x 3 Discharge Plan Discharge Items Patient Disposition: Home - Self-Care Reason For Visit: BACK PAIN Discharge Diagnosis: 1. Back pain due to thoracic spine disease as well as muscle strain 2. PRES (Posterior reversible encephalopathy syndrome) - improved 3. Altered mental status - due to #2 - resolved 4. Lyme disease Condition on Discharge: Good Activity: As commented below Lifting: No more than 5 pounds Driving/Machine Use: No driving or operating heavy machinery unless cleared by neurology Non-emergency contact: Primary Care Provider and Neurologist Call non-emergency contact if: you have any medication questions, your symptoms worsen, your pain is concerning for you and you have a fever Follow-up/Referrals: Cheri Taylor CRNP [Primary Care Provider] - 04/03/24 10:30 am (within 5-7 days ) Kevin Thomas MD [Physician] - (Neurology office will call to schedule follow up appointment for 2-4 weeks ) Winnie Álvarez DO [Physician] - (please contact Dr Álvarez's office at your convenience for your back ) Diet: Heart Healthy Addtl Attending Provider Instructions: Mrs Sheldon, Dat were initially admitted to the hospital due to back pain after lifting heavy objects. You were seen by pain management as well as orthopedic-spine. Conservative treatment with pain medicines, muscle relaxers, etc were advised for your pain. Your back pain is likely a combination of thoracic spine disease as well as recent muscle strain. Mid-way through your stay you developed severe confusion and lethargy. This required transfer to the ICU and multiple imaging studies of the brain to exclude stroke & other problems. MRI brain was highly suggestive of a condition called "PRES" (Posterior reversible encephalopathy syndrome). There was no evidence of an acute stroke. There are various factors that can cause PRES including uncontrolled high blood pressure. You were seen by [facility], Dr Scot Thomas. As a precautionary measure keppra 500mg twice daily was added in the event you had an unwitnessed seizure around the time that you became lethargic. Your neurological symptoms gradually improved during the stay as did your mental status. Further, Lyme disease testing was positive. You were started on doxycycline antibiotic and you have received about 5-6 days of such while here. Recommendations - 1. for prevention of possible seizures - keppra 500mg twice daily every day 2. for Lyme disease - * doxycycline 100mg twice daily x 25 additional days * most common side effect - heartburn/stomach upset * rare side effect - rash that is caused by sun exposure while taking the antibiotic; thus, if out in the sun, please cover up and use sunscreen liberally 3. for back pain - * oxycodone 5mg every 4 hours as needed * this medicine is a narcotic pain killer * it can cause you to feel sleepy or groggy * do not drink alcohol while taking this medicine * do not drive a car while taking this medicine * this medicine will cause constipation as well 4. for back pain/muscle spasm - * baclofen 20mg every 8 hours as needed * this medication can also cause you to feel sleepy * if you notice it is causing sleepiness you can cut it in 1/2 and take 10mg every 8 hours as needed * do not drive a car or drink alcohol if you are using this medicine 5. cajf-eqw-zgtdozk medicines that you can take in addition to the above - * tylenol 1000mg every 8 hours as needed, max 3000mg in 24 hours * "salonpas" pain patches - follow directions on box; apply to skin for 12 hours at site of pain, remove for 12 hours 6. for nausea - * ondansetron 4mg every 6 hours as needed 7. for blood pressure - * amlodipine 5mg once daily every day 8. if you are having frequent heartburn or stomach upset from the doxycycline antibiotic you can take [id number]-jls-[id number] - * pepcid (famotidine) 20mg every 12 hours as desired OR * omeprazole 20mg once daily as desired 9. NO DRIVING or Operating heavy machinery UNLESS cleared by neurology 10. For constipation - may use any combination of the following gwid-njc-lxdojwn medicines - * colace 100mg twice daily and/or * miralax 1 serving daily and/or * senna 2 tablets daily 11. If possible please purchase a blood pressure cuff and check your blood pressure once or twice daily on the upper portion of either arm. Keep a log of your BPs. Show them to your family doctor. Follow-up - see separate section Return to [facility] if - * you have uncontrolled back pain * you have confusion, lethargy, or difficulty staying awake * you have weakness of either arm or either leg * you have visual disturbance * you have fevers over 100 degrees * any other concerns It was our pleasure caring for you! Pending Studies at Discharge: No Stand-Alone Forms: My [facility], Smoking Cessation Medications and DC Order Prescriptions: New doxycycline hyclate 100 mg Capsule 100 mg PO BID 25 Days Qty: 50 0RF levetiracetam [Keppra] 500 mg Tablet 500 mg PO BID Qty: 60 2RF baclofen 20 mg Tablet 20 mg PO TID PRN (Reason: muscle spasm) Qty: 30 0RF amlodipine [Norvasc] 5 mg Tablet 5 mg PO QAM Qty: 30 2RF oxycodone 5 mg Tablet 5 mg PO Q4H PRN (Reason: pain) Qty: 20 0RF ondansetron 4 mg tablet,disintegrating 4 mg PO Q6H PRN (Reason: nausea and vomiting) Qty: 10 0RF Continued atorvastatin 40 mg tablet 40 mg PO DAILY Qty: 90 3RF Rx Instructions: pt aware dose change losartan 50 mg tablet 50 mg PO DAILY Qty: 90 3RF albuterol sulfate [Ventolin HFA] 90 mcg/actuation HFA aerosol inhaler See Rx Instructions .ROUTE .COMPLEX Qty: 18 1RF Dose Instruction: INHALE 1 TO 2 PUFFS BY MOUTH EVERY 4 TO 6 HOURS NEEDED FOR SHORTNESS OF BREATH. Rx Instructions: INHALE 1 TO 2 PUFFS BY MOUTH EVERY 4 TO 6 HOURS NEEDED FOR SHORTNESS OF B REATH. multivitamin Tablet 1 tab PO QAM Discontinued prednisone 20 mg tablet 40 mg PO DAILY Qty: 14 0RF Rx Instructions: for 7 days cyclobenzaprine 5 mg tablet 5 - 10 mg PO TID PRN (Reason: muscle spasm) Rx Instructions: 1-2 tab orally three times a day PRN; Discharge Orders: Discharge Order (Routine); Ordered 03/31/24 Ordered By: Tato Corrigan Admission Data Admit Date/Time: 03/25/24 17:11 Attending Provider: Tato Corrigan Admit Provider: Lito Lundberg Primary Care Provider: Cheri Taylor Other Providers: Lito Lundberg; José Miguel White; Rio Quiñones; Gregory Green; Romero Castrejon; Jean Claude Moore; Deandre Ng; Norm Campos; José Miguel Bethea; Bib Wood; Bassem Boo; Aparna Nichols; Karen James; Allen Kwong; Gerardo Farmer; Jody Kelly; Kevin Thomas Other Interventions: Discharge Summary Assessment (RN) Last Done: 03/31/24 15:50 Hospital Stay Data Consultations Orthopedic Spine Surgery Pain Management Cardiology [facility] Neurology PT, OT Procedures Performed 1. echocardiogram - EF 60-65%, trace pericardial effusion 2. EEG - negative for seizure activity 3. intubation/mechanical ventilation 4. trigger point injections 03/27/24 by pain management (back) Diagnostic Imagining Performed Chest CT 03/23/24 10:59 CT chest diagnostic w con CLINICAL HISTORY: Mid/upper central back pain s/p heavy lifting TECHNIQUE: Multidetector row helical CT of the chest was performed with intravenous contrast. Coronal and sagittal reformations were obtained. Automated dose lowering techniques and/or adjustment according to patient size were utilized for this exam. CT DOSE: 392.06 mGy.cm Comparison: None available at the time of this dictation. FINDINGS: Lungs and pleura: Normal. Heart and pericardium: Heart size is normal. No pericardial effusion. Vessels: Mild atherosclerotic changes in the aorta and coronary arteries. Mediastinum and rhonda: Subcentimeter lymph nodes are seen. Chest wall and lower neck: Small thyroid nodules are noted which do not require follow-up by ACR criteria. Abdomen: Unremarkable. Bones: Degenerative changes in the thoracic spine. IMPRESSION: No acute abnormalities in particular no evidence of acute fracture. ACT 112: Negative or not required by law. Electronically signed by: Zachariah English M.D. 03/23/2024 1:[address] 03/23/24 10:59 CT thoracic spine w con CT DOSE: CLINICAL HISTORY: Mid/upper central back pain s/p heavy lifting TECHNIQUE: Multiaxial CT images of the thoracic spine were performed following the intravenous administration of contrast and reformatted in the sagittal and coronal planes A dose lowering technique was utilized adhering to the principles of ALARA. COMPARISON STUDY: None. FINDINGS: No fracture or subluxation within the thoracic spine. Moderate disc space narrowing at T1-T2. Mild disc space narrowing within the remaining upper to mid thoracic spine. Moderate to severe disc space narrowing at L1-L2. No significant central canal narrowing by CT technique. Paravertebral soft tissues are unremarkable. IMPRESSION: No fracture or subluxation within the thoracic spine. ACT 112: Negative or not required by law. Electronically signed by: Anand Figueroa M.D. 03/23/2024 12:40 PM Thoracic Spine MRI 03/25/24 08:07 THORACIC SPINE MRI HISTORY: injury, uncontrolled/worsened back pain TECHNIQUE: Multiplanar multisequence MRI of the thoracic spine was performed without the use of contrast. COMPARISON: CT thoracic spine 03/23/2024. FINDINGS: Localizer images demonstrate a 3.4 cm defect within the right parietal lobe which could be due to an old infarct or old postoperative change. This is only partially imaged on this study. No acute fractures of fixation within the thoracic spine. A T3 vertebral body hemangioma is noted. No suspicious osseous lesions. Moderate disc space narrowing at T1-T2 with a broad-based posterior disc bulge asymmetric to the right. No significant central canal narrowing. There is moderate to severe bilateral neural foraminal narrowing. Broad-based posterior disc bulge at T2-T3 without significant central canal or neural foraminal narrowing. There is a 3 mm left paracentral focal disc protrusion at T7-T8 without significant central canal or neural foraminal narrowing. Nondisplaced. The mid thoracic spine is noted. There are severe disc space narrowing at L5-S1 with a broad-based posterior disc bulge. No significant central canal narrowing at this level. The conus terminates at the T12-L1 disc space level. The thoracic spinal cord is normal and course, caliber, and signal intensity. Paravertebral soft tissues are unremarkable. No epidural fluid collections. Degenerative changes within the cervical spine are noted. IMPRESSION: 1. No fracture or subluxation within the thoracic spine. 2. Degenerative changes as described above most pronounced at the T1-T2 level. This demonstrates moderate to severe bilateral neural foraminal narrowing. 3. No significant central canal narrowing within the thoracic spine. 4. Normal signal intensity within the thoracic spinal cord. ACT 112: Negative or not required by law. Electronically signed by: Anand Figueroa M.D. 03/25/2024 11:28 AM Chest CTA 03/25/24 09:56 CHEST CTA for PULMONARY ARTERIES CT DOSE: 421.3 mGy.cm HISTORY: Atypical chest pain. TECHNIQUE: Multiaxial CT images of the chest were performed following the intravenous administration of contrast to evaluate the pulmonary arteries. 3D/Maximal intensity projection images were also obtained. Sagittal and coronal reformations were also reviewed. A dose lowering technique was utilized adhering to the principles of ALARA. COMPARISON STUDY: Chest CT 03/23/2024. FINDINGS: Normal caliber thoracic aorta with no evidence for a dissection. The heart is normal in size. No pleural or pericardial effusions. Moderate coronary artery calcifications are noted. No filling defects within the pulmonary arteries to suggest a pulmonary embolus. No mediastinal or hilar lymphadenopathy. Calcified subcarinal and right hilar lymph nodes are noted. Normal esophagus. Limited views the upper abdomen demonstrate a normal liver, spleen, and adrenal glands. No acute fractures. The central airways are patent. No pneumothorax. No focal lung consolidations to suggest a pneumonia. Stable 3 mm nodule within the right lung apex on image 208. No evidence for pulmonary edema. Calcified granuloma within the right lower lobe. IMPRESSION: 1. No evidence for a pulmonary embolus. 2. No focal lung consolidations to suggest a pneumonia. 3. Moderate coronary artery calcifications. 4. Stable 3 mm nodule within the right lung apex. Please refer to below summary of Fleischner criteria recommendations for follow- up of incidental CT nodules (H Andrea, Guidelines for management of small pulmonary nodules detected on CT scans: A statement from the Fleischner Society, Radiology 237: [phone].) SOLID NODULES Solitary nodule size: <6 mm * Low risk patients: no follow-up needed * high risk patients: optional CT at 12 months Solitary nodule size: 6-8 mm * Low risk patients: follow-up at 6-12 months, then consider further follow-up at 18-24 months * high risk patients: initial follow-up CT at 6-12 months and then at 18-24 months if no change Solitary nodule size: >8 mm * either low or high risk patients - consider follow-up CT at 3 months, and/or CT-PET, and/or biopsy Multiple nodules size: <6 mm * Low risk patients: no routine follow-up * high risk patients: optional CT at 12 months Multiple nodules size: 6-8 mm * Low risk patients: follow-up at 3-6 months, then consider further follow-up at 18-24 months * high risk patients: follow-up at 3-6 months, then at 18-24 months if no change Multiple nodules size: >8 mm * Low risk patients: follow-up at 3-6 months, then consider further follow-up at 18-24 months * high risk patients: follow-up at 3-6 months, then at 18-24 months if no change Note: newly detected indeterminate nodule in persons 35 years of age or older. * Low risk patients: minimal or absent history of smoking and/or other known risk factors * high risk patients: history of smoking or of other known risk factors (e.g. first degree relative with lung cancer, or exposure to asbestos, radon, uranium) * if a nodule up to 8 mm is partly solid or is ground glass further follow-up is required after 24 months to exclude possible slow growing adenocarcinoma (JENNA) SUBSOLID NODULES Solitary pure ground-glass nodule * nodule size <6 mm - no CT follow-up required * nodule size >=6 mm - follow-up CT at 6-12 months, then every 2 years until 5 years Solitary part-solid nodule * nodule size <6 mm - no CT follow-up required * nodule size >=6 mm - follow-up CT at 3-6 months. If unchanged, and solid component remains <6 mm, then annual follow-up for 5 years Multiple subsolid nodules * nodule size <6 mm - follow-up CT at 3-6 months, consider further follow-up at 2 and 4 years if stable * nodule size >=6 mm - follow-up CT at 3-6 months, subsequent management based on the most suspicious nodule(s) ACT 112: Negative or not required by law. Electronically signed by: Anand Figueroa M.D. 03/25/2024 11:50 AM Chest X-Ray 03/27/24 09:49 XR chest 1V portable HISTORY: Atypical chest pain COMPARISON: Chest 11/23/2015. FINDINGS: The lungs are clear. Cardiac silhouette is normal in size. No pleural effusions. No pneumothorax. IMPRESSION: No acute process. ACT 112: Negative or not required by law. Electronically signed by: Anand Figueroa M.D. 03/27/2024 12:[address] 03/28/24 04:16 Exam(s): CT HEAD Without Contrast EXAM: CT Head Without Intravenous Contrast CLINICAL HISTORY: Reason for exam: AMS. TECHNIQUE: Axial computed tomography images of the head/brain without intravenous contrast. CTDI is 71.02 mGy and DLP is 702.46 mGy-cm. Automated exposure control was utilized for the study. A dose lowering technique was utilized adhering to the principles of ALARA. COMPARISON: No relevant prior studies available. FINDINGS: Brain: There is a 3.7 cm focus of encephalomalacia in the right parietal lobe. No hemorrhage. No significant white matter disease. Ventricles: Unremarkable. No ventriculomegaly. Bones/joints: Unremarkable. No acute fracture. Soft tissues: Unremarkable. Sinuses: Unremarkable as visualized. No acute sinusitis. Mastoid air cells: Unremarkable as visualized. No mastoid effusion. IMPRESSION: No acute intracranial abnormality Electronically signed by: Edu Gallagher MD 03/28/24 08:01 AM Head CTA 03/28/24 04:35 Exam(s): CTA HEAD With Contrast IV Amt: 119 ml opti 320 EXAM: CT Angiography Head With Intravenous Contrast CLINICAL HISTORY: Reason for exam: sls. TECHNIQUE: Axial computed tomographic angiography images of the head with intravenous contrast. CTDI is 12.7 mGy and DLP is 470.26 mGy-cm. Automated exposure control was utilized for the study. A dose lowering technique was utilized adhering to the principles of ALARA. MIP reconstructed images were created and reviewed. CONTRAST: Patient received 119 ml opti 320 of IV contrast COMPARISON: No relevant prior studies available. FINDINGS: Right internal carotid artery: No acute findings. Intracranial segment is patent with no significant stenosis. No aneurysm. Right anterior cerebral artery: Unremarkable. No occlusion or significant stenosis. No aneurysm. Right middle cerebral artery: Unremarkable. No occlusion or significant stenosis. No aneurysm. Right posterior cerebral artery: Unremarkable. No occlusion or significant stenosis. No aneurysm. Right vertebral artery: Unremarkable as visualized. Left internal carotid artery: No acute findings. Intracranial segment is patent with no significant stenosis. No aneurysm. Left anterior cerebral artery: Unremarkable. No occlusion or significant stenosis. No aneurysm. Left middle cerebral artery: Unremarkable. No occlusion or significant stenosis. No aneurysm. Left posterior cerebral artery: Unremarkable. No occlusion or significant stenosis. No aneurysm. Left vertebral artery: Unremarkable as visualized. Basilar artery: Unremarkable. No occlusion or significant stenosis. No aneurysm. IMPRESSION: Normal head CTA. Electronically signed by: Edu Gallagher MD 03/28/24 08:08 AM Neck CTA 03/28/24 04:35 Exam(s): CTA NECK With Contrast IV Amt: 119 ml opti 320 EXAM: CT Angiography Neck With Intravenous Contrast CLINICAL HISTORY: Reason for exam: sls. TECHNIQUE: Routine carotid CT angiography protocol was performed with intravenous contrast. NASCET criteria using the distal ICAs for comparison were used for evaluation of stenoses. CTDI is 12.7 mGy and DLP is 470.26 mGy-cm. Automated exposure control was utilized for the study. A dose lowering technique was utilized adhering to the principles of ALARA. MIP reconstructed images were created and reviewed. CONTRAST: Patient received 119 ml opti 320 of IV contrast COMPARISON: None. FINDINGS: VASCULATURE: Right common carotid artery: Mild to moderate atherosclerotic calcification seen at the bifurcation of the right common carotid artery.. 20% stenosis seen in the carotid bulb. Right internal carotid artery: Unremarkable. Extracranial segment is patent with no occlusion or significant stenosis. No dissection. Right external carotid artery: Unremarkable. No occlusion. Right vertebral artery: Unremarkable. No occlusion or significant stenosis. No dissection. Left common carotid artery: Moderate atherosclerotic calcification seen at the bifurcation of the left common carotid artery. 30% stenosis in the carotid bulb. Left internal carotid artery: Unremarkable. Extracranial segment is patent with no occlusion or significant stenosis. No dissection. Left external carotid artery: Unremarkable. No occlusion. Left vertebral artery: Unremarkable. No occlusion or significant stenosis. No dissection. NECK: Bones/joints: Unremarkable. No acute fracture. Soft tissues: Unremarkable. Lung apices: Clear. CAROTID STENOSIS REFERENCE USING NASCET CRITERIA: % ICA stenosis = (1 - narrowest ICA diameter/diameter of distal cervical ICA) x 100. Mild - <50% stenosis. Moderate - 50-69% stenosis. Severe - 70-94% stenosis. Near occlusion - 95-99% stenosis. Occluded - 100% stenosis. IMPRESSION: No evidence of hemodynamically significant carotid stenosis Electronically signed by: Edu Gallagher MD 03/28/24 08:13 AM Chest X-Ray 03/28/24 05:04 SINGLE VIEW CHEST CLINICAL HISTORY: Respiratory failure. Intubation. FINDINGS: An AP, portable, supine chest radiograph is compared to study dated 03/27/2024 and correlated with chest CT dated 03/25/2024. An endotracheal tube has been placed. The tip of the catheter projects approximately 2.5 cm above the elder. The cardiomediastinal silhouette is unremarkable. Calcified hilar nodes are similar to previous. The lungs and pleural spaces are otherwise clear. No pneumothorax is seen. The skeletal structures are osteopenic. The bony thorax is grossly intact. IMPRESSION: 1. An endotracheal tube has been placed as above. 2. There is no airspace consolidation, pleural effusion, or pneumothorax. ACT 112: Negative or not required by law. Electronically signed by: Augie Agrawal M.D. 03/28/2024 7:01 AM Brain MRI 03/28/24 09:06 MRI OF THE BRAIN COMBO CLINICAL HISTORY: Encephalopathy. COMPARISON STUDY: CT of the brain dated 03/28/2024. TECHNIQUE: MRI of the brain was performed utilizing various T1 and T2-weighted sequences in the axial, sagittal, and coronal planes. Contrast-enhanced sequences were acquired following the administration of 6.5 cc of Gadavist. FINDINGS: Brain parenchyma: There is significant T2/FLAIR signal abnormality seen involving the posterior parieto-occipital cortex. This vessel and the coronal FLAIR sequences. There are some apparent signal abnormality in the cerebellum. There is no associated stricture diffusion or abnormal postcontrast enhancement. A focus of right parietal encephalomalacia is unchanged and consistent with a remote insult. There is no hemorrhage or mass effect. There is no restricted diffusion typical for acute ischemia. No enhancing mass lesion is identified on the postcontrast images. No extra-axial fluid collection is seen. The cerebellar tonsils are normal in configuration. Ventricles, sulci, and cisterns: Normal in configuration. Pituitary and sella: Unremarkable. Intracranial vasculature: Normal flow voids are maintained at the skull base. Orbits: The bony orbits are grossly intact. Orbital contents are normal in appearance. Sinuses and mastoids: There is trace mucosal thickening within the ethmoid sinuses. The remaining paranasal sinuses are clear. Secretions are noted in the pharynx. The mastoid air cells are well pneumatized. Calvarium: Postsurgical changes seen on the right convexity. No destructive calvarial lesion is identified. Cervical cord: Partially visualized cervical spinal cord is normal in morphology and signal intensity. IMPRESSION: 1. There is no hemorrhage, enhancing mass, or evidence of acute ischemia. 2. There is significant T2/FLAIR signal are seen within the posterior parieto- occipital cortex and the cerebellum. The distribution strongly favors PRES (posterior reversible encephalopathy syndrome). A nonspecific encephalitis/cerebritis of other etiology could potentially appear similar. Clinical correlation will be essential. 3. Additional findings as above. Findings were discussed with Dr. Ng at the time of interpretation. ACT 112: Negative or not required by law. Electronically signed by: Augie Agrawal M.D. 03/28/2024 12:45 PM Pending Results Patient Have Any Pending Studies at Discharge: No Discharge Instructions Given to Patient (Per Discharging Provider) Dat [place] were initially admitted to the hospital due to back pain after lifting heavy objects. You were seen by pain management as well as orthopedic-spine. Conservative treatment with pain medicines, muscle relaxers, etc were advised for your pain. Your back pain is likely a combination of thoracic spine disease as well as recent muscle strain. Mid-way through your stay you developed severe confusion and lethargy. This required transfer to the ICU and multiple imaging studies of the brain to exclude stroke & other problems. MRI brain was highly suggestive of a condition called "PRES" (Posterior reversible encephalopathy syndrome). There was no evidence of an acute stroke. There are various factors that can cause PRES including uncontrolled high blood pressure. You were seen by [facility], Dr Scot Thomas. As a precautionary measure keppra 500mg twice daily was added in the event you had an unwitnessed seizure around the time that you became lethargic. Your neurological symptoms gradually improved during the stay as did your mental status. Further, Lyme disease testing was positive. You were started on doxycycline antibiotic and you have received about 5-6 days of such while here. Recommendations - 1. for prevention of possible seizures - keppra 500mg twice daily every day 2. for Lyme disease - * doxycycline 100mg twice daily x 25 additional days * most common side effect - heartburn/stomach upset * rare side effect - rash that is caused by sun exposure while taking the antibiotic; thus, if out in the sun, please cover up and use sunscreen li berally 3. for back pain - * oxycodone 5mg every 4 hours as needed * this medicine is a narcotic pain killer * it can cause you to feel sleepy or groggy * do not drink alcohol while taking this medicine * do not drive a car while taking this medicine * this medicine will cause constipation as well 4. for back pain/muscle spasm - * baclofen 20mg every 8 hours as needed * this medication can also cause you to feel sleepy * if you notice it is causing sleepiness you can cut it in 1/2 and take 10mg every 8 hours as needed * do not drive a car or drink alcohol if you are using this medicine 5. jpue-fcd-zqdeoxa medicines that you can take in addition to the above - * tylenol 1000mg every 8 hours as needed, max 3000mg in 24 hours * "salonpas" pain patches - follow directions on box; apply to skin for 12 hours at site of pain, remove for 12 hours 6. for nausea - * ondansetron 4mg every 6 hours as needed 7. for blood pressure - * amlodipine 5mg once daily every day 8. if you are having frequent heartburn or stomach upset from the doxycycline antibiotic you can take [id number] - * pepcid (famotidine) 20mg every 12 hours as desired OR * omeprazole 20mg once daily as desired 9. NO DRIVING or Operating heavy machinery UNLESS cleared by neurology 10. For constipation - may use any combination of the following [id number]-ifmvcgf medicines - * colace 100mg twice daily and/or * miralax 1 serving daily and/or * senna 2 tablets daily 11. If possible please purchase a blood pressure cuff and check your blood pressure once or twice daily on the upper portion of either arm. Keep a log of your BPs. Show them to your family doctor. Follow-up - see separate section Return to [facility] if - * you have uncontrolled back pain * you have confusion, lethargy, or difficulty staying awake * you have weakness of either arm or either leg * you have visual disturbance * you have fevers over 100 degrees * any other concerns It was our pleasure caring for you! Total Time Total Time Spent Total Time Spent (In Minutes): 45 Coding Level of Care Code 46282 INP/OBS DISCH >30 MIN Diagnoses PRES (posterior reversible encephalopathy syndrome) I67.83 Altered mental status R41.82 Back pain M54.9 Positive Lyme disease serology R76.8 Elevated troponin R79.89 COVID-19 U07.1 Primary hypertension I10 Hypertension type: primary hypertension GERD (gastroesophageal reflux disease) K21.9 Pulmonary nodule R91.1
[2024-03-31] MEDS ORDERED: NALOXONE HCL 0.4 MG/1 ML VIAL/CARP IV ONE (16:32)
--- NOTE | 2024-04-01 05:28 | Electrocardiogram Report ---
Test Reason : Blood Pressure : */* mmHG Vent. Rate : 68 BPM Atrial Rate : 68 BPM P-R Int : 154 ms QRS Dur : 70 ms QT Int : 376 ms P-R-T Axes : 37 -4 25 degrees QTcB Int : 399 ms Normal sinus rhythm Cannot rule out Anterior infarct , age undetermined Abnormal ECG When compared with ECG of 29-Mar-2024 06:25, No significant change was found Confirmed by Louie Segura ([id number]) on 04/01/2024 5:28:08 AM Referred By: REFERRED SELF Confirmed By: Louie Segura
[2024-04-01] MEDS ORDERED: methylPREDNISolone 4 MG TAB PO SCH (07:00)
--- NOTE | 2024-04-01 15:41 | Electrocardiogram Report ---
Test Reason : Blood Pressure : */* mmHG Vent. Rate : 70 BPM Atrial Rate : 70 BPM P-R Int : 146 ms QRS Dur : 72 ms QT Int : 380 ms P-R-T Axes : 43 -1 28 degrees QTcB Int : 410 ms Normal sinus rhythm Normal ECG When compared with ECG of 27-Mar-2024 10:08, No significant change was found Confirmed by Radha Ortega (Alexandr) on 03/29/2024 7:05:01 PM Referred By: REFERRED SELF Confirmed By: Radha Ortega
== END 2024-03-31 16:33 | disposition home or self-care (01) | DRG 551 ==
LOC: ED 10:32 → 2N 10:32 → SUATTDRO 17:20 → 2N 18:31 → SUATTDRO 03-25 17:11 → 1E 03-28 05:14
DX: S23.3XXA Sprain of ligaments of thoracic spine, initial encounter; U09.9 Post COVID-19 condition, unspecified; I67.83 Posterior reversible encephalopathy syndrome; I10 Essential (primary) hypertension; I24.89 Other forms of acute ischemic heart disease; E78.00 Pure hypercholesterolemia, unspecified; Z79.52 Long term (current) use of systemic steroids; I48.91 Unspecified atrial fibrillation; A69.20 Lyme disease, unspecified; I31.39 Other pericardial effusion (noninflammatory); Z79.899 Other long term (current) drug therapy; K21.9 Gastro-esophageal reflux disease without esophagitis; X50.0XXA Overexertion from strenuous movement or load, initial encounter; J45.909 Unspecified asthma, uncomplicated